=== PATIENT | female | born 1995 | race Caucasian/White ===

== ENCOUNTER 2017-10-08 01:37 | Emergency (ER) | payer OTHER, SELFPAY ==
[2017-10-08 01:37] VITALS: BP 117/86; PULSE 86; RESP 112; TEMP 36.4; O2SAT 100; BMI 19.7
--- NOTE | 2017-10-08 01:46 | ED.RN ---
RN CALLED FOR EKG, NO OLD EKG'S IN MUSE
[2017-10-08] MEDS: 0.9% Normal Saline 1,000 ML 1000 ML IV (02:23)
[2017-10-08] MEDS: Ondansetron 4 MG/2 ML Vial IV ×2 (02:23→05:24)
[2017-10-08] MEDS: Ketorolac 30 MG/ML Syringe IV (02:24)
[2017-10-08] MEDS: Morphine 4 MG/ML Syringe IV (02:27)
--- NOTE | 2017-10-08 03:02 | EKG12_ITS ---
Test Reason : CP Blood Pressure : / mmHG Vent. Rate : 107 BPM Atrial Rate : 107 BPM P-R Int : 134 ms QRS Dur : 084 ms QT Int : 334 ms P-R-T Axes : 076 089 048 degrees QTc Int : 445 ms Sinus tachycardia Otherwise normal ECG Confirmed by CANDELARIO WEST, DALE ([id number]), news editor ELINOR DURAN ([id number]) on 10/12/2017 1:38:12 PM Referred By: DR CRAIN Confirmed By:DALE PALOMINO MD
[2017-10-08 03:09] LABS: Anion Gap 9 (5-15); BUN 19 mg/dL (7-18); BUN/Creat Ratio 19.3 RATIO (10-20); Calcium,Total 8.8 mg/dL (8.5-10.1); Chloride 106 mmol/L (98-107); Creatinine, Serum 0.99 mg/dL (0.55-1.02); EST Glomerular Filtration Rate 74 mL/min (>60); Est Glom Filt Rate - Afr Amer 90 mL/min (>60); Estimated Creatinine Clearance 68.35 ml/min; Glucose 122 mg/dL (74-106); Potassium 3.8 mmol/L (3.5-5.1); Sodium Level 140 mmol/L (136-145)
[2017-10-08 03:22] LABS: Pregnancy, Serum, hCG Quali. NEGATIVE Negative (0-9 Nonpreg)
[2017-10-08] MEDS: 0.9% Normal Saline 1,000 ML 999 ML IV ×2 (03:27→04:12)
--- NOTE | 2017-10-08 03:46 | ED.VISSUMM ---
- ER Visit Summary Date of Service: 10/08/17 Chief Complaint: Vomiting and diarrhea History of Present Illness: The patient is a [address] Rocha. She reports that she has vomiting and diarrhea that began yesterday approximately 10 PM. She is vomited 3-4 times. No blood or emesis. She has had multiple episodes of diarrhea. No blood in her stools or black tarry stools. 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 Patient complains of cramping diffuse abdominal pain is 7-10 at worst and 3 out of 10 currently. Is worsened by vomiting and relieved by nothing. Physical Examination: Vitals: Stable. Afebrile. General: Well-nourished and well-developed. Head: Normocephalic atraumatic. Neck: Supple, no lymphadenopathy. No JVD. Nontender. Cardiovascular: Regular rate and rhythm. No murmurs. Respiratory: No respiratory distress. Clear to auscultation bilaterally. Abdominal: Soft, mild diffuse tenderness to palpation, nondistended, normal bowel sounds. No guarding, rebound, or peritoneal signs. Back: Nontender. Extremities: Nontender, no edema. Skin: Normal color, no rash. Neurologic: Alert and oriented ?3. Cranial nerves II through XII are intact. Normal strength and sensation. Psych: Normal affect. Test Results: test is negative. Chem-7 is remarkable for a glucose of 122 and BUN of 19. Emergency Department Course and Treatment: Patient has a history of seizures. She was unable to keep her evening dose of Keppra down. She was given 750 mg of Keppra IV. She is also given morphine, Zofran, and Toradol IV. She has had no further vomiting while here. She did have an episode of diarrhea. She received 3 L of normal saline and feels much improved. Treatment Plan: Patient be discharged with Zofran. Instructed to follow-up Dr. Rocha in 1-2 days if not improving. Return to the emergency department for any worsening symptoms. Disposition: To home in improved and stable condition. Impression: 1. Vomiting/diarrhea. This note was generated with [employer] software. It may contain incorrect words, spelling, and punctuation that were not noted in review of the chart prior to signing ED Disposition - Plan for ED Patient: Chief Complaint: Nausea/Vomiting Instructions: ED Food Poison Or Gastroenteritis Prescriptions: Ondansetron [Zofran Odt] 4 mg PO Q8H PRN PRN #10 tablet PRN Reason: Nausea Dicyclomine HCl [Bentyl] 20 mg PO TIDAC #20 capsule Referrals: Amilcar Summers MD [Primary Care Provider] - 1-2 Days if not improving
[2017-10-08] MEDS: Ondansetron ODT 4 MG Tablet PO (05:31)
[2017-10-08 05:42] VITALS: BP 77/37; PULSE 101; RESP 16; O2SAT 98
--- NOTE | 2017-10-08 12:40 | ED.RN ---
called pt and informed of positive stool panel with a result of norovirus.
== END 2017-10-08 05:43 | disposition home or self-care (01) ==
PROVIDERS: Emergency Provider Emergency Medicine; Family Provider Family Medicine; PCP Family Medicine
DX: R11.10 Vomiting, unspecified (principal); R19.7 Diarrhea, unspecified; G40.909 Epilepsy, unspecified, not intractable, without status epilepticus; G47.419 Narcolepsy without cataplexy; Z79.899 Other long term (current) drug therapy
CPT/HCPCS: 80048; 84703; 87506; 93005; 96361; 96365; 96366; 96375; 96376; 99284; J7030; A4216; J2405

== ENCOUNTER → 2018-01-07 13:00 | Outpatient (CLI) | payer OTHER, SELFPAY ==
--- NOTE | 2018-01-07 13:00 | SP.MBSS_ITS ---
PRIMARY / SECONDARY DIAGNOSIS: dysphagia (R13.10) REFERRING PHYSICIAN: Dr. Jason Toussaint MD CURRENT DIET: regular textures, thin liquids DENTITION: WFL MENTAL STATUS: WNL RESPIRATORY STATUS: O2 via room air PREVIOUS MODIFIED BARIUM SWALLOW STUDY: none REASON FOR REFERRAL: Patient is a 22 year old female referred for a modified barium swallow (MBS) study to objectively assess the Patients oropharyngeal swallow function under fluoroscopy secondary to concerning episodes of PO intolerance leading to copious, prolonged bouts of emesis particular concerning in that said episodes preclude the Patient from taking vital anti-seizure medications. Patient reports episodes accompanied by prolonged emesis have occurred 3 separate times over the last few months, with the Patient immediately feeling as though the bolus has stopped directly below the laryngeal notch, reports strong globus with odynophagia and immediate projectile emesis of both the bolus and prior ingested gastric contents that has lasted upwards of hours. Patient reports additional and more frequently occurring globus sensation and intermittent odynophagia, reports little relief from liquid chasers during episodes, is cognitively intact and healthy (epilepsy currently controlled by medication) with no concerns for tachyphagia or bolting (rapid ingestion without sufficient mastication). Patient reports that her father additionally has experienced similar episodes as described above, though has not underwent diagnostic workup. ADDITIONAL OBJECTIVE ASSESSMENT RESULTS: 07/05/2014 MRI revealed an unremarkable unenhanced and enhanced MRI of the brain. 07/05/2014 EEG revealed abnormal EEG secondary to epileptiform abnormalities ( sharp waves) that were noted to be occurring in the frontal regions, right greater than left; findings concerning for an underlying seizure disorder; indicate the patient is prone for seizure activity. MEDICAL HISTORY: Epilepsy, status post tonsillectomy, unspecified sleep disorders with daytime sleepiness, occasional hypnagogic hallucinations, sleep paralysis, and vivid dreams. STUDY FINDINGS: Patient participated in a Modified Barium Swallow (MBS) study on 01/07/2018. Dr. Ayers was the radiologist present for this evaluation. This study was recorded in the lateral view and images were sent to PACs for storage. The following consistencies were presented to this patient for analysis of oropharyngeal swallow function: thin liquids, pudding, and a regular textured, Rocio Doone cookie. Results of the MBS are as follows: PENETRATION / ASPIRATION SCALE (HANCOCK): 1 = does not enter airway 2 = enters airway/above vocal folds/ejected 3 = enters airway/above vocal folds/not ejected 4 = enters airway/contacts vocal folds/ejected 5 = enters airway/contacts vocal folds/not ejected 6 = enters airway/below vocal folds/ejected 7 = enters airway/below vocal folds/not ejected despite effort 8 = enters airway/below vocal folds/no effort PENETRATION / ASPIRATION SCALE (SCORE): Thin liquid - 5 mL tsp.: 1 Thin liquids via cup (single sip): 1 Thin liquids via cup (single sip): 1 Thin liquids via cup (single sip): 1 Thin liquids via cup (sequential swallows): 2 Thin liquids via straw (sequential swallows): 1 Pudding via spoon: 1 Regular textured cookie: 1 Thin liquids via straw (12mm tablet): 1 Thin liquids via straw (sequential swallows): 1 Pudding via spoon: NA* Thin liquids via straw (sequential swallows): NA* Thin liquids via straw (sequential swallows): NA* Pudding via spoon: NA* Regular textured cookie: NA* * could not view, with focus on esophageal phase of deglutition. IMPRESSION: DIAGNOSIS: functional oropharyngeal swallow function with abnormal esophageal findings. ORAL PHASE CHARACTERIZED BY: LABIAL SEAL: no labial escape TONGUE CONTROL DURING BOLUS MANIPULATION: cohesive bolus between tongue to palatal seal BOLUS PREPARATION / MASTICATION: timely and efficient chewing and mashing BOLUS TRANSPORT / LINGUAL MOTION: brisk tongue motion ORAL RESIDUE: intermittent trace residue lining oral structures PHARYNGEAL PHASE CHARACTERIZED BY: INITIATION OF PHARYNGEAL SWALLOW: bolus head at posterior angle of ramus at first hyoid excursion SOFT PALATE ELEVATION: no bolus between soft palate and pharyngeal wall LARYNGEAL ELEVATION: complete superior movement of thyroid cartilage with complete approximation of arytenoids cartilage to epiglottic petiole ANTERIOR HYOID EXCURSION: intermittent partial anterior movement EPIGLOTTIC MOVEMENT: complete epiglottic inversion LARYNGEAL VESTIBULE CLOSURE AT HEIGHT OF SWALLOW: complete laryngeal vestibule closure with no air/contrast in laryngeal vestibule PHARYNGEAL STRIPPING WAVE: pharyngeal stripping wave present / complete PHARYNGOESOPHAGEAL SEGMENT OPENING: partial distension and partial duration; partial obstruction of flow TONGUE BASE RETRACTION: no contrast between tongue base and posterior pharyngeal wall PHARYNGEAL RESIDUE: trace residue within or on pharyngeal structures ( valleculae) ESOPHAGEAL PHASE CHARACTERIZED BY: ESOPHAGEAL BOLUS CLEARANCE IN THE UPRIGHT POSITION: abnormal esophageal findings with noted esophageal retention of the 12mm barium tablet within the upper thoracic esophagus with mild retention within the same location during proceeding bolus of purees; required multiple chasers to clear with reported odynophagia no retrograde flow appreciated; would benefit from further workup. DIET TEXTURE RECOMMENDATIONS: Will recommend a regular textured, thin liquid diet. COMPENSATORY STRATEGIES RECOMMENDED: Supervision, reduced rate of intake, seated upright at 90 degrees during PO intake, remain upright for 30-60 minutes post meal (GERD precaution), medications with purees (would consider crushing pills if no relief AFTER discussion with physician). INTERPRETATION OF RESULTS: Patient presents with oropharyngeal swallow function grossly within functional limits, with abnormal esophageal phase findings requiring further workup. Mild reduction in anterior hyoid excursion likely attributing to mild reduction in pharyngoesophageal segment opening, with no clinical significance noted, no impact on laryngeal vestibule protection or pharyngeal motility. Esophageal phase marked by esophageal retention of the 12mm barium tablet within the upper thoracic esophagus with mild retention within the same location during proceeding bolus of pureed textures, with the Patient requiring multiple chasers to clear the tablet, with the Patient reporting odynophagia and similar globus sensation in comparison to prior reported episodes likely explaining prior episodes of intolerance, no retrograde flow appreciated. No aspiration appreciated throughout trials, would not consider this Patient to be at high risk of aspiration during ingestion, though depending on esophageal findings, may be at higher risk of aspirating materials from the esophagus in addition to gastric contents (reports intermittent albeit copious bouts of emesis). RECOMMENDATIONS: Strongly recommend additional assessment of the Patients esophageal functioning via barium esophagram vs. upper GI series due to the abnormal findings described above in addition to what sounds like a familial history of similar esophageal dysphagia, as it is outside the scope of the modified barium swallow study to definitively assess esophageal functioning. Would additionally consider further workup via director educational radio. ADDITIONAL COMMENTS/RECOMMENDATIONS: Results and recommendations were discussed with the Patient immediately following MBS completion, with the Patient verbalizing understanding and agreement with all recommendations and education provided. IMAGE COUNT: [id number] G-CODES: SWALLOWING G8996 Current Status: SWALLOWING G8997 Goal Status: SWALLOWING G8998 Discharge Status: KWESI Mock M.A., CCC-CORPORATE DEVELOPMENT MANAGER [facility] Speech-Language Pathology Department [email or web address]
--- NOTE | 2018-01-07 13:02 | RAD_ITS ---
STUDY: SWALLOWING STUDY REASON FOR EXAM: Female, 22 years old. Dysphagia. TECHNIQUE: The examination was performed with Speech Therapist and Radiologist in attendance. Under fluoroscopic observation, the patient ingested thin barium, thick barium, barium pudding, and barium coated cracker. FLUOROSCOPY TIME: 1:24 minutes/seconds Dose: 20.75 mGy RADIOLOGIST INVOLVEMENT: Present during entire exam. COMPARISON: None available. FINDINGS: The following was observed during swallowing of the various mixtures of barium: Thin Barium: There was no finding of aspiration or laryngeal penetration. Thick Barium: There was no findings of aspiration or laryngeal penetration. Barium Pudding: There was no findings of aspiration or laryngeal penetration. Barium Coated Cracker: There was no findings of aspiration or laryngeal penetration. However, patient swallowed a 18 mm barium tablet which progressed to the upper thoracic proximal esophagus shows stasis for approximately 1 minute consistent with esophageal dysmotility. Patient swallowed pudding which then allowed appearing pill to progress to the stomach. RAD/Swallowing Function w/Video IMPRESSION: No aspiration or significant laryngeal penetration identified with barium swallow study with Speech Therapy. No finding of increased risk for aspiration. However, esophageal dysmotility is noted of the upper thoracic proximal esophagus as described with 18 mm barium tablet. If clinically indicated, recommend upper GI series for further evaluation given patient's symptomatology. The swallow study findings were discussed with the patient by the speech pathologist at the conclusion of the examination. Please see speech pathology report for more information and recommendations. The procedure was performed by speech pathologist Blayne under the direct supervision of Dr. Ayers. Electronically Signed: Malcom Ayers, at 17:24 EDT Tel , Service support ,
== END ==
PROVIDERS: Family Provider Family Medicine; PCP Family Medicine
DX: R13.10 Dysphagia, unspecified (principal)
CPT/HCPCS: 74230; 92610; 92611

== ENCOUNTER → 2018-02-17 15:31 | Outpatient (CLI) | payer OTHER, SELFPAY ==
--- NOTE | 2018-02-17 12:30 | EGD_PTH ---
PATIENT: JALEEL ORELLANA LOC: [facility] U#:[id number] AGE/SX: 29/F ROOM: RE02/17/[address]: Dr. Kvng Sands MD : 1995 BED: DIS: SPEC #: [id number] RECD: 02/17/18 15:29 STATUS: YUMIKO STORMY #: [id number] TRISTIN: 02/17/18 12:[address]: Kvng Sands DEPT: SURGICAL PATHOLOGY RECD BY: Yanick Wood ENTERED: 02/18/18 11:01 SP TYPE: EGD BIOPSY OTHR DR: No Primary Care Phys Tissues: Esophageal mucous membrane Procedures: Surgery Specimen Level IV HEADER OPERATION: EGD with biopsies PRE-OP DIAGNOSIS: Dysphagia TISSUE SUBMITTED: Esophageal biopsies, rule out EE MICROSCOPIC DIAGNOSIS Esophageal biopsy: Fragments of squamous epithelium with changes consistent with eosinophilic esophagitis. See comment. JULIA:javon 02/21/18 COMMENT Increased number of eosinophils (more than 20 per high power field) consistent with eosinophilic esophagitis are noted. Correlation with clinical, endoscopic findings and appropriate follow up are necessary. MICROSCOPIC DESCRIPTION Slides are reviewed. GROSS DESCRIPTION Received in fixative is one container labeled with the patient's name and designated esophageal biopsy. The specimen consists of multiple irregular fragments of light hendrix soft tissue that in aggregate measure 1.2 x 0.2 x 0.1 cm. The specimen is totally submitted in one cassette. / SJ:rg 02/18/18 TC:3 CPT: 63936
== END ==
PROVIDERS: Visit Provider Internal Medicine Gastroenterology
DX: R13.10 Dysphagia, unspecified (principal)
CPT/HCPCS: 88305

== ENCOUNTER 2018-03-28 09:05 | Outpatient (RCR) | payer OTHER, SELFPAY | END 2018-03-30 23:59 | LOC: NS 09:05 | PROVIDERS: Visit Provider Family Medicine | DX: R13.10 Dysphagia, unspecified (principal); J39.2 Other diseases of pharynx; T78.40XA Allergy, unspecified, initial encounter; Z71.3 Dietary counseling and surveillance | CPT/HCPCS: 97802 ==

== ENCOUNTER → 2019-07-11 16:50 | Outpatient (CLI) | payer OTHER, SELFPAY ==
[2019-07-11 18:13] LABS: Absolute Neutrophil Count 3.1 X10^3/uL (2.0-7.7); Basophil# 0.04 X10^3/uL; Basophil% 0.8 % (0-1); Eosinophil# 0.12 X10^3/uL; Eosinophils% 2.4 % (0-5); Hematocrit 40.3 % (37-47); Hemoglobin 14.2 g/dL (12.0-15.0); Lymphocyte % 27.8 % (19-41); Mean Corp Hgb Conc 35.2 g/dL (32-36); Mean Corpuscular Hgb 33.7 pg (27.0-32.0); Mean Corpuscular Volume 95.7 fL (81-99); Mean Platelet Vol. 10.7 fl (6.2-12.0); Monocyte# 0.37 X10^3/uL; Monocyte% 7.4 % (0-10); NRBC Flagged by Analyzer 0 % (0-5); Neutrophil # 3.07 X10^3/uL (2.7-7.7); Platelet Count 174 K/mm3 (150-450); RBC Distribution Width SD 38.6 fl (35.1-43.9); Red Blood Count 4.21 M/mm3 (4.2-5.4)
[2019-07-11 19:13] LABS: Albumin, Serum 4.4 g/dL (3.2-5.0); BUN 14 mg/dL (7-18); BUN/Creat Ratio 13.9 RATIO (10-20); Creatinine, Serum 1.01 mg/dL (0.55-1.02); EST Glomerular Filtration Rate 71 mL/min (>60); Est Glom Filt Rate - Afr Amer 86 mL/min (>60); Globulin 3.2 g/dL (2.2-4.2); Glucose 119 mg/dL (74-106); Protein, Total 7.6 g/dL (6.4-8.2)
[2019-07-11 19:14] LABS: ALB/GLOB Ratio 1.4 RATIO (0.9-2.4); AST(SGOT) 14 U/L (15-37); Alanine Aminotransfer ALT/SGPT 26 U/L (13-56); Alkaline Phosphatase 80 U/L (45-117); Anion Gap 4 (5-15); Calcium,Total 9.3 mg/dL (8.5-10.1); Chloride 104 mmol/L (98-107); Potassium 3.5 mmol/L (3.5-5.1); Sodium Level 139 mmol/L (136-145)
[2019-07-14 16:48] LABS: Lamotrigine (Lamictal) Level 7.2 ug/mL (2.0-20.0)
== END ==
DX: G40.309 Generalized idiopathic epilepsy and epileptic syndromes, not intractable, without status epilepticus (principal)
CPT/HCPCS: 36415; 80053; 82542; 85025

== ENCOUNTER → 2019-11-09 08:43 | Outpatient (CLI) | payer OTHER, SELFPAY ==
[2019-11-09 10:16] LABS: Potassium 3.9 mmol/L (3.5-5.1)
== END ==
PROVIDERS: PCP Family Medicine; Referring Provider Dermatology; Visit Provider Dermatology
DX: L70.0 Acne vulgaris (principal); L23.3 Allergic contact dermatitis due to drugs in contact with skin; Z79.899 Other long term (current) drug therapy
CPT/HCPCS: 36415; 84132

== ENCOUNTER → 2020-10-15 15:23 | Outpatient (CLI) | payer OTHER, SELFPAY ==
[2020-10-19 09:16] LABS: KEPPRA (LEVETIRACETAM) 13.8 ug/mL (10.0-40.0)
== END ==
PROVIDERS: PCP Family Medicine
DX: R56.9 Unspecified convulsions (principal)
CPT/HCPCS: 36415; 80177

== ENCOUNTER → 2020-11-11 08:38 | Outpatient (CLI) | payer OTHER, SELFPAY ==
[2020-11-11 10:24] LABS: Potassium 3.8 mmol/L (3.5-5.1)
== END ==
PROVIDERS: PCP Family Medicine; Referring Provider Dermatology; Visit Provider Dermatology
DX: L70.0 Acne vulgaris (principal); Z79.899 Other long term (current) drug therapy
CPT/HCPCS: 36415; 84132

== ENCOUNTER → 2021-10-06 | Outpatient (CLI) | payer OTHER, SELFPAY ==
[2021-10-11 01:07] LABS: KEPPRA (LEVETIRACETAM) 17.5 ug/mL (10.0-40.0)
[2021-10-11 08:52] LABS: Lamotrigine (Lamictal) Level 8.2 ug/mL (2.0-20.0)
== END | disposition home or self-care (01) ==
LOC: LAB 14:57
PROVIDERS: PCP Family Medicine; Referring Provider Psychiatry & Neurology Neurology; Visit Provider Psychiatry & Neurology Neurology
DX: G40.309 Generalized idiopathic epilepsy and epileptic syndromes, not intractable, without status epilepticus (principal)
CPT/HCPCS: 36415; 80177; 82542

== ENCOUNTER → 2022-05-05 | Outpatient (CLI) | payer OTHER, SELFPAY ==
[2022-05-05 16:37] LABS: Vitamin B12 355 pg/mL (211-911); Vitamin D,25 Hydroxy 15.8 ng/mL
[2022-05-05 16:43] LABS: T4 Free Direct 0.91 ng/dL (0.76-1.46); Thyroid Stim Hormone (TSH) 1.04 uIU/mL (0.358-3.74)
== END | disposition home or self-care (01) ==
PROVIDERS: PCP Family Medicine; Referring Provider Psychiatry & Neurology Sleep Medicine; Visit Provider Psychiatry & Neurology Sleep Medicine
DX: R41.3 Other amnesia (principal)
CPT/HCPCS: 36415; 82306; 82607; 84439; 84443

== ENCOUNTER → 2022-10-21 | Outpatient (CLI) | payer OTHER, SELFPAY ==
--- NOTE | 2022-10-21 08:51 | RAD_ITS ---
INDICATION: chest pain EXAMINATION/TECHNIQUE: X-RAY - XR Chest 2 Views COMPARISON: FINDINGS: LINES/DEVICES: None. LUNGS: No consolidation, edema or effusion. No pneumothorax. MEDIASTINUM AND CARDIOVASCULAR STRUCTURES: Cardiac silhouette not enlarged. Central airways and mediastinal contour are unremarkable. BONES AND SOFT TISSUES: Unremarkable. RAD/Chest PA and Lateral IMPRESSION: No radiographic evidence of acute cardiopulmonary disease. Electronically Signed: Blake Fredercik DO at 23:35 EDT ,
== END | disposition home or self-care (01) ==
PROVIDERS: PCP Family Medicine; Referring Provider Nurse Practitioner Family; Visit Provider Nurse Practitioner Family
DX: R07.9 Chest pain, unspecified (principal)
CPT/HCPCS: 71046

== ENCOUNTER → 2022-11-04 | Outpatient (CLI) | payer OTHER, SELFPAY ==
--- NOTE | 2022-11-04 08:15 | ECHOD_ITS ---
Reason For Study: CHEST PAIN Procedure This was a 2D Doppler, Color Flow transthoracic echocardiogram. Exam performed in department. Left Ventricle Normal LV size. Left ventricular systolic function is normal. The estimated ejection fraction is 60 %. Normal diastology for age. No regional wall motion abnormalities noted. Right Ventricle Normal RV size. Normal systolic function. Atria Normal left atrium. Normal right atrium. Mitral Valve Normal mitral valve. Tricuspid Valve Normal tricuspid valve. Aortic Valve Normal aortic valve. Trisinus/trileaflet aortic valve. Pulmonic Valve Normal pulmonic valve. Great Vessels Normal aortic root. The pulmonary artery is normal size. Inferior vena cava collapse with respiration. Pericardium/Pleural No pericardial effusion. MMode/2D Measurements & Calculations LVIDd: 3.7 cm IVSd: 0.71 cm Ao root diam: 2.7 cm LVIDs: 2.7 cm LVPWd: 0.72 cm RVDd: 2.1 cm FS: 26.8 % LAV(MOD-bp): 42.3 ml LVAd ap4: 24.9 cm2 SV(MOD-sp4): 44.3 ml LAV(MOD-bp) Indexed: 28.7 ml/m2 LVLd ap4: 8.2 cm LAV(MOD-sp2): 36.1 ml EDV(MOD-sp4): 63.7 ml LAV(MOD-sp4): 43.0 ml EDV(sp4-el): 64.4 ml LVAs ap4: 11.7 cm2 LVLs ap4: 6.5 cm ESV(MOD-sp4): 19.5 ml ESV(sp4-el): 17.8 ml EF(MOD-sp4): 69.5 % EF(sp4-el): 72.3 % SV(sp4-el): 46.6 ml LA A4 area: 16.8 cm2 LA dimension(2D): 2.8 cm RA A4 area: 11.3 cm2 Time Measurements MV dec time: 0.20 sec Doppler Measurements & Calculations MV E max ronni: 79.9 cm/sec Lat Peak E' Ronni: 19.5 cm/sec Med Peak E' Ronni: 14.3 cm/sec MV A max ronni: 64.2 cm/sec E/E' lat: 4.1 E/E' med: 5.6 MV E/A: 1.2 MV V2 max: 94.3 cm/sec Ao V2 max: 123.3 cm/sec MV max P.6 mmHg MV dec slope: 405.4 cm/sec2 Ao max P.1 mmHg MV V2 mean: 72.7 cm/sec Ao V2 mean: 88.7 cm/sec MV mean P.2 mmHg Ao mean P.5 mmHg MV V2 VTI: 19.7 cm Ao V2 VTI: 25.5 cm AV (velocity ratio): 0.91 LV V1 max: 118.8 cm/sec PA V2 max: 87.6 cm/sec LV V1 max P.7 mmHg PA V2 mean: 65.0 cm/sec LV V1 mean P.2 mmHg LV V1 mean: 86.1 cm/sec LV V1 VTI: 23.3 cm ECHO/Echo Complete Interpretation Summary Normal LV size. Left ventricular systolic function is normal. The estimated ejection fraction is 60 %. Structurally normal valves. Ordering Physician: Marianna Cutler Referring Physician: Marianna Cutler Performed By: Yris Holman RCS
[2022-11-04 09:58] LABS: Hematocrit 42.7 % (37-47); Hemoglobin 14.5 g/dL (12.0-15.0); Mean Corpuscular Hgb 33.3 pg (27.0-32.0); Mean Corpuscular Volume 97.9 fL (81-99); Mean Platelet Vol. 10.3 fl (6.2-12.0); Platelet Count 176 K/mm3 (150-450); RBC Distribution Width CV 11.5 % (11.6-14.6); RBC Distribution Width SD 41.5 fl (35.1-43.9); Red Blood Count 4.36 M/mm3 (4.2-5.4); White Blood Count 3.8 K/mm3 (4.4-11.0)
[2022-11-04 10:31] LABS: Anion Gap 4 (5-15); BUN 17 mg/dL (7-18); BUN/Creat Ratio 17.4 RATIO (10-20); Calcium,Total 9.4 mg/dL (8.5-10.1); Chloride 107 mmol/L (98-107); Creatinine, Serum 0.98 mg/dL (0.55-1.02); EST Glomerular Filtration Rate 72 mL/min (>60); Est Glom Filt Rate - Afr Amer 87 mL/min (>60); Glucose 102 mg/dL (74-106); Potassium 4.1 mmol/L (3.5-5.1); Sodium Level 139 mmol/L (136-145)
[2022-11-04 10:47] LABS: D-Dimer Quantitative (DVT/PE) < 0.27 FEU/ug/m (0.27-0.49)
== END | disposition home or self-care (01) ==
PROVIDERS: PCP Family Medicine; Referring Provider Nurse Practitioner Family; Visit Provider Nurse Practitioner Family
DX: R07.9 Chest pain, unspecified (principal)
CPT/HCPCS: 36415; 80048; 85027; 85379; 93306

== ENCOUNTER → 2022-11-14 | Outpatient (CLI) | payer OTHER, SELFPAY ==
[2022-11-18 18:07] LABS: KEPPRA (LEVETIRACETAM) 9.3 ug/mL (10.0-40.0); Lamotrigine (Lamictal) Level 6.7 ug/mL (2.0-20.0)
== END | disposition home or self-care (01) ==
LOC: LAB 11:55
PROVIDERS: PCP Family Medicine; Referring Provider Psychiatry & Neurology Neurology; Visit Provider Psychiatry & Neurology Neurology
DX: G40.309 Generalized idiopathic epilepsy and epileptic syndromes, not intractable, without status epilepticus (principal)
CPT/HCPCS: 36415; 80177; 82542

== ENCOUNTER 2025-05-06 19:12 | Inpatient (IN) | payer OTHER, SELFPAY ==
[2025-05-06 19:14] VITALS: BMI 26.0
--- OUTSIDE RECORDS SUMMARY | 2025-05-06 19:16 | XMS RPT_ITS | CCD ---
Author Organization [facility] Inform ion [facility] Care Team Providers Care Project Administrative Assistant Name Role Phone Tiburcio Summers MD Primary Care Provider Dr. Amilcar Summers Primary Care Provider Dr. Bobby Reardon Attending Provider Omayra SURVEY RESEARCH PROFESSOR, SURVEY RESEARCH PROFESSOR-C Marianna Referring Provider Juan Hood Attending Unavailable Juan Hood Referring Unavailable Amilcar Summers Primary Care Unavailable YAMILETH EWING Attending Unavailable YAMILETH EWING Referring Unavailable Amilcar Summers Primary Care Unavailable Omayra SURVEY RESEARCH PROFESSOR, Marianna Attending Unavailable Omayra SURVEY RESEARCH PROFESSOR, Marianna Referring Unavailable Amilcar Summers Primary Care Unavailable Omayra SURVEY RESEARCH PROFESSOR, Marianna Referring Unavailable Bobby Reardon Attending Unavailable Amilcar Summers Primary Care Unavailable Omayra SURVEY RESEARCH PROFESSOR, Marianna Attending Unavailable Omayra SURVEY RESEARCH PROFESSOR, Marianna Referring Unavailable Amilcar Summers Primary Care Unavailable Tiburcio Summers MD Primary Care Provider Tiburcio Summers MD Primary Care Provider Tiburcio Summers MD Primary Care Provider TIBURCIO SUMMERS Primary Care UnavailBRINDA Wilkins Referring Unavailable BRINDA ROYAL Attending Unavailable Tiburcio Summers MD Primary Care Provider TIBURCIO SUMMERS Primary Care Unavailabl e VERO, TIKA Referring Unavailable TIBURCIO SUMMERS Primary Care Unavailabl e VERO, TIKA Referring Unavailable DILLON DILLARD Attending Unavailable TIBURCIO SUMMERS Primary Care Unavailabl e DILLON DILLARD Referring Unavailable LUBA JAMES Attending Unavail able [facility] Primary Care [facility]availabl e [facility] Primary Care Unavailabl e VERO, TIKA Referring Unavailable [facility] Primary Care Unavailabl e PLOTABNER, ROMELIA Referring Unavailable [facility] Primary Care Unavailabl e VREO, TIKA Attending Unavailable [facility] Primary Care Unavailabl e NATALIYA HOWE Attending Unavailable [facility] Primary Care Unavailabl e DILLON DILLARD Referring Unavailable [facility] Primary Care Unavailabl e WISSARIKA, BUZZ Referring Unavailable [facility] Primary Care Unavailabl e VERO, TIKA Referring Unavailable BUZZ CARRANZA Attending Unavailable [facility] Primary Care Unavailabl e KRYSTA SANCHES Referring Unavailable [facility] Primary Care Unavailabl e SELF Referring Unavailable ROMELIA SURESH Attending Unavailable [facility] Primary Care Unavailabl e BUZZ CARRANZA Attending Unavailable [facility] Primary Care Unavailabl e DILLON DILLARD Referring Unavailable [facility] Primary Care Unavailabl e MERY TURNER Referring Unavailable [facility] Primary Care Unavailabl e SELF Referring Unavailable ROEMLIA SURESH Attending Unavailable [facility] Primary Care Unavailabl e BUZZ CARRANZA Attending Unavailable [facility] Primary Care Unavailabl e LUBA JAMES Referring Unavail able [facility] Primary Care Unavailabl e DILLON DILLARD Referring Unavailable [facility] Primary Care Unavailabl e DILLON DILLARD Referring Unavailable [facility] Primary Care Unavailabl e SELF Referring Unavailable CATIE ALEJANDRO Attending Unavailable [facility] Primary Care Unavailabl e DILLON DILLARD Referring Unavailable BUZZ CARRANZA Attending Unavailable [facility] Primary Care Unavailabl e DILLON DILLARD Referring Unavailable BUZZ CARRANZA Attending Unavailable NATALIYA HOWE Referring Unavailable [facility] Primary Care Unavailabl e NATALIYA HOWE Referring Unavailable [facility] Primary Care Unavailabl e PLOTABNER, ROMELIA Referring Unavailable TIBURCIO SUMMERS Primary Care Unavailabl e SHELLEY DAVIS Referring Unavailable TIBURCIO SUMMERS Primary Care Unavailabl e TIKA PHAM Referring Unavailable TIBURCIO SUMMERS Primary Care Unavailabl e NATALIYA HOWE Referring Unavailable TIBURCIO SUMMERS Primary Care Unavailabl e Allergies Allergy Classification Reported Allergen(s) Allergy Type Date of Onset Reaction(s) Facility (20 sources) almond allergenic extract; Translations: [ALMOND] Drug Allergy 08-07-2019 Shortness of Breath [facility] Work Phone: (20 sources) barley extract; Translations: [BARLEY] Drug Allergy 04-18-2018 Shortness of Breath [facility] (20 sources) Singletary extract; Translations: [SINGLETARY] Drug Allergy 07-03-2019 Shortness of Breath [facility] Work Phone: (20 sources) Cabbage preparation; Translations: [CABBAGE] Drug Allergy 04-18-2018 Shortness of Breath [facility] (20 sources) chicken allergenic extract; Translations: [CHICKEN DERIVED] Drug Allergy 07-03-2019 Shortness of Breath [facility] Work Phone: (20 sources) egg extract; Translations: [EGG] Drug Allergy 04-18-2018 Shortness of Breath [facility] (20 sources) Lactase; Translations: [LACTASE] Drug Allergy 04-18-2018 Shortness of Breath [facility] (20 sources) Oats preparation; Translations: [OATS] Drug Allergy 04-18-2018 Shortness of Breath [facility] (20 sources) peanut; Translations: [PEANUTS] Food Allergy 04-18-2018 Shortness of Breath [facility] Work Phone: (20 sources) Pisum sativum (pea) extract; Translations: [PEAS] Drug Allergy 07-03-2019 Shortness of Breath [facility] Work Phone: (20 sources) Soy protein; Translations: [SOY] Drug Allergy 04-18-2018 Shortness of Breath [facility] (20 sources) Wheat gluten extract; Translations: [GLUTEN] Drug Allergy 07-03-2019 Shortness of Breath [facility] Work Phone: (20 sources) Beef Containing Products; Translations: [BEEF CONTAINING PRODUCTS] Drug Allergy 04-18-2018 Shortness of Breath [facility] (20 sources) Tomatoes; Translations: [TOMATOES] Food Allergy 04-18-2018 Shortness of Breath [facility] (20 sources) Wheat, Wheat Germ; Translations: [WHEAT, WHEAT GERM] Food Allergy 04-18-2018 Shortness of Breath [facility] Medications Current Medications Medication Drug Class(es) Dates Sig (Normalized) Sig (Original) aspirin 81 mg delayed release oral tablet (17 sources) Platelet Aggregation Inhibitor, Nonsteroidal Anti-inflammatory Drug Start: 10-02-2024 take 1 tablet by mouth once daily aspirin, enteric coated (ECOTRIN LOW STRENGTH) 81 mg EC tablet Indications: with uncertain dates, antepartum (HCC) , Screen for STD (sexually transmitted disease) , care, first in first trimester (HCC) Take 1 tablet by mouth once daily. 90 tablet 3 10/02/2024 Active dicyclomine hydrochloride 10 mg oral capsule (3 sources) Anticholinergic Start: 10-08-2017 take 20 mg by mouth three times daily before mealtime Dicyclomine Active 20 MG PO THREE TIMES DAILY BEFORE MEALS October 08, 2017 12:00am doxycycline hyclate 100 mg oral tablet (1 source) Tetracycline-class Drug Start: 07-10-2024 End: 07-17-2024 take 1 tablet by mouth twice daily doxycycline (VIBRA-TABS) 100 mg tablet Indications: Bacterial pneumonia Take 1 tablet by mouth two times a day for 7 days. 14 tablet 07/10/2024 07/17/2024 Active folic acid 1 mg oral tablet (20 sources) Start: 05-09-2021 End: 10-16-2024 take 2 tablets by mouth once daily folic acid 1 mg tablet Indications: Generalized epilepsy (HCC) Take 2 tablets by mouth once daily. 180 tablet 1 10/16/2024 Active Comment on above: Take 2 tablets by mo [facility] once daily. 24 hr lamoTRIgine 250 mg extended release oral tablet (20 sources) Mood Stabilizer, Anti-epileptic Agent Start: 12-07-2024 End: 03-07-2025 take 1 tablet by mouth twice daily lamoTRIgine ER (LAMICTAL XR) 250 mg 24 hr tablet Indications: Generalized epilepsy (HCC) Take 1 tablet by mouth twice daily. 180 tablet 1 02/14/2025 Active Start: 10-30-2024 End: 10-30-2025 take 1 tablet by mouth twice daily lamoTRIgine ER (LAMICTAL XR) 200 mg 24 hr tablet Indications: Generalized epilepsy (HCC) Take 1 tablet by mouth two times a day. 180 tablet 3 10/30/2024 12/07/2024 Discontinued Start: 03-26-2021 End: 04-14-2025 take 1 tablet by mouth twice daily lamoTRIgine ER (LAMICTAL XR) 100 mg 24 hr tablet Indications: Generalized epilepsy (HCC) Take 1 tablet by mouth two times a day. Take with 50 mg tablets for total of 150 mg twice daily 180 tablet 3 11/08/2023 10/16/2024 Discontinued Start: 03-26-2021 End: 11-07-2024 take 1 tablet by mouth twice daily lamoTRIgine ER (LAMICTAL XR) 50 mg 24 hr tablet Indications: Generalized epilepsy (HCC) Take 1 tablet by mouth two times a day. Take with 100 mg tablets for total of 150 mg twice daily 180 tablet 3 11/08/2023 10/16/2024 Discontinued Comment on above: Take 1 tablet by lee th twice daily. Take with 50 mg tablets for total of 150 mg twice daily Take 1 tablet by lee th twice daily. Take with 100 mg tablets for total of 150 mg twice daily levETIRAcetam 1000 mg oral tablet (20 sources) Start: End: take 2 tablets by mouth once daily in the morning, then take 2.5 tablets by mouth once daily at bedtime levETIRAcetam (KEPPRA) 1,000 mg tablet Indications: Generalized epilepsy (HCC) Take 2 tablets by mouth every morning AND 2.5 tablets daily at bedtime. 405 tablet 3 01/31/2025 01/31/2026 Active Start: 12-07-2024 End: 03-07-2025 take 2 tablets by mouth twice daily levETIRAcetam (KEPPRA) 1,000 mg tablet Indications: Generalized epilepsy (HCC) Take 2 tablets by mouth two times a day. 360 tablet 12/07/2024 01/31/2025 Discontinued Start: 10-27-2024 End: 10-27-2025 take 1.5 tablets by mouth twice daily levETIRAcetam (KEPPRA) 1,000 mg tablet Indications: Generalized epilepsy (HCC) Take 1.5 tablets by mouth two times a day. 180 tablet 1 10/27/2024 12/07/2024 Discontinued Start: 09-03-2021 End: 11-07-2024 take 1 tablet by mouth twice daily levETIRAcetam (KEPPRA) 1,000 mg tablet Indications: Generalized epilepsy (HCC) Take 1 tablet by mouth two times a day. 180 tablet 3 11/08/2023 10/16/2024 Discontinued Start: 05-14-2021 End: 09-01-2022 take 1 tablet by mouth once daily in the morning, then take 1.5 tablets by mouth once daily in the evening levETIRAcetam (KEPPRA) 1,000 mg tablet Indications: Generalized epilepsy (HCC) Take 1 tablet by mouth every morning AND 1.5 tablets every evening. 225 tablet 2 09/01/2021 09/03/2021 Discontinued Start: 10-08-2017 take 1 tablet by lee th once daily Levetiracetam (Keppra) 750 MG tablet Active 750 MG PO DAILY October 08, 2017 12:00am Comment on above: Take 1 tablet by lee th every morning AND 1.5 tablets every evening. Take 1 tablet by lee th twice daily. ondansetron 4 mg disintegrating oral tablet (3 sources) Serotonin-3 Receptor Antagonist Start: 8 take 4 mg by mouth every eight hours as needed Ondansetron Active 4 MG PO EVERY 8 HOURS NEEDED October 08, 2017 12:00am pantoprazole 40 mg delayed release oral tablet (17 sources) Proton Pump Inhibitor Start: 4 take 1 tablet by mouth once daily pantoprazole DR (PROTONIX) 40 mg tablet Take 40 mg by mouth once daily. 06/14/2023 Active vit/iron fum/folic ac ( 1 + 1 ORAL) (17 sources) vit/iro n fum/folic ac ( 1 + 1 ORAL) Take by mouth once daily. Active Completed/Discontinued Medications Medication Drug Class(es) Dates Sig (Normalized) Sig (Original) adapalene 0.003 mg/mg / benzoyl peroxide 0.025 mg/mg topical gel (20 sources) Retinoid Start: 12-12-2018 End: 01-11-2024 EPIDUO FORTE 0.3-2.5 % glwp Apply 0.3 mg to affected area as directed. 7 12/12/2018 01/11/2024 Discontinued Comment on above: Apply 0.3 mg to affe cted area as directed. 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 90 tablet 1 07/13/2023 01/11/2024 Discontinued Start: 04-21-2021 End: 10-31-2022 take 1 tablet by mouth once daily armodafinil (NUVIGIL) 250 mg tab Indications: Narcolepsy without cataplexy Take 1 tablet by mouth once daily for 180 days. 30 tablet 5 05/04/2022 10/31/2022 Active Comment on above: Take 1 tablet by lee once daily for 90 days. Take 1 tablet by lee th once daily for 30 days. Take 1 tablet by lee once daily for 7 days. Take 1 tablet by lee once daily. Take 1 tablet by lee once daily for 180 days. brompheniramine maleate 0.4 mg/ml / dextromethorphan hydrobromide 2 mg/ml / pseudoephedrine hydrochloride 6 mg/ml oral solution (3 sources) alpha-Adrenergic Agonist, Uncompetitive C-epqezh-T-aspartate Receptor Antagonist, Sigma-1 Agonist Start: 025 End: 025 take 5 mL by mouth four times daily as needed Brompheniramine-Pseud oeph-DM (BROMFED DM) 2-30-10 mg/5 mL syrup Indications: Acute cough Take 5 mL by mouth four times a day as needed. 120 mL 07/10/2024 09/11/2024 Discontinued (Discontinued by Patient) clonazePAM 0.5 mg disintegrating oral tablet (20 sources) Benzodiazepine Start: 023 End: 026 clonazePAM orally disintegrating (KLONOPIN WAFER) 0.5 mg disintegrating tablet Indications: Generalized epilepsy (HCC) Take one tablet by mouth as needed at the onset of a seizure. Do not exceed more than 2 doses in 24 hours. 10 tablet 06/20/2024 10/02/2024 Discontinued Start: 09-04-2020 End: 10-28-2022 clonazePAM orally disintegra ting (KLONOPIN WAFER) 0.5 mg disintegrating tablet Indications: Generalized epilepsy (HCC) Take one tablet by mouth as needed at the onset of a seizure. Do not exceed more than 2 doses in 24 hours. 10 tablet 1 09/03/2021 Active Comment on above: Take one tablet by m outh as needed at the onset of a seizure. Do not exceed more than 2 doses in 24 hours. levonorgestrel 0.925661 mg/hr intrauterine system (20 sources) Progestin, Progestin-containing Intrauterine Device Start: 05-29-20 End: 05-27-20 levonorgestrel (MIRENA) 20 mcg/24 hours (5 yrs) 52 mg IUD Indications: Encounter for IUD removal and reinsertion , Encounter for IUD insertion 1 Each by INTRAUTERINE route as directed. 1 Each 0 05/29/2019 01/11/2024 Discontinued (Course of therapy completed) Comment on above: 1 Each by INTRAUTERI NE route as directed. spironolactone 50 mg oral tablet (20 sources) Aldosterone Antagonist take 1 tablet by mouth twice daily spironolactone (ALDACTONE) 50 mg tablet Take 50 mg by mouth twice daily. 0 Active Comment on above: Take 50 mg by mouth twice daily. Problems Active Problems Problem Classification Problem Date Documented Date Episodic/Chronic Anxiety disorders (20 sources) Anxiety; Translations: [Anxiety disorder, unspecified] Onset: 09-03-2021 Chronic Coagulation and hemorrhagic disorders (2 sources) Thrombocytopenia, unspecified; Translations: [Benign gestational thrombocytopenia in third trimester (HCC)] Onset: 03-05-2025 Chronic Contraceptive and procreative management (3 sources) Intrauterine contraceptive device in situ; Translations: [Encounter for routine checking of intrauterine contraceptive device] Episodic Diabetes or abnormal glucose tolerance complicating ; childbirth; or the puerperium (2 sources) Gestational diabetes mellitus in , diet controlled; Translations: [Abnormal glucose complicating ] Onset: 02-22-2025 Episodic Epilepsy; convulsions (20 sources) Generalized epilepsy; Translations: [Generalized idiopathic epilepsy and epileptic syndromes, not intractable, without status epilepticus] Onset: 12-08-2019 Chronic Menstrual disorders (1 source) Menstrual spotting; Translations: [Excessive and frequent menstruation with regular cycle] 09-11-2024 Chronic Nonspecific chest pain (1 source) Chest pain, unspecified; Translations: [Chest pain, unspecified] Onset: 11-13-2022 Episodic Other complications of (1 source) Supervision of high risk , unspecified, third trimester; Translations: [Supervision of high risk in third trimester (HCC)] Onset: 03-19-2025 Episodic Other complications of (2 sources) Other diseases of the blood and blood-forming organs and certain disorders involving the immune mechanism complicating , third trimester; Translations: [Benign gestational thrombocytopenia in third trimester (HCC)] Onset: 03-05-2025 Episodic Other complications of (1 source) Supervision of high risk , unspecified, unspecified trimester; Translations: [Supervision of high risk , antepartum (HCC)] Onset: 02-21-2025 Episodic Other complications of (2 sources) Supervision of high risk , unspecified, second trimester; Translations: [Supervision of high risk in second trimester (HCC)] Onset: 02-21-2025 Episodic Other female genital disorders (1 source) Abnormal uterine bleeding; Translations: [Abnormal uterine and vaginal bleeding, unspecified] Chronic Other injuries and conditions due to external causes (1 source) Unspecified foreign body in respiratory tract, part unspecified causing other injury, initial encounter; Translations: [Aspiration of foreign body, initial encounter] Onset: 06-14-2023 Episodic Other lower respiratory disease (2 sources) Cough; Translations: [Acute cough] 07-10-2024 Episodic Other nervous system disorders (20 sources) Narcolepsy without cataplexy ; Translations: [Narcolepsy without cataplexy] Onset: 04-03-2022 Chronic Other nervous system disorders (19 sources) Narcolepsy; Translations: [Narcolepsy without cataplexy] Onset: 04-03-2022 04-03-2022 Chronic Other nervous system disorders (1 source) Narcolepsy without cataplexy; Translations: [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)] Onset: 05-20-2023 Chronic Other nervous system disorders (1 source) H/O: epilepsy; Translations: [Personal history of other diseases of the nervous system and sense organs] 12-28-2024 Episodic Other nervous system disorders (1 source) Personal history of other diseases of the nervous system and sense organs; Translations: [History of epilepsy] Onset: 02-21-2025 Episodic Other screening for suspected conditions (not mental disorders or infectious disease) (5 sources) Cancer cervix screening status; Translations: [Encounter for screening for malignant neoplasm of cervix] Onset: 02-21-2025 Episodic Other upper respiratory infections (1 source) Sore throat symptom; Translations: [Acute pharyngitis, unspecified] 07-10-2024 Episodic Pneumonia (except that caused by tuberculosis or sexually transmitted disease) (1 source) Bacterial pneumonia; Translations: [Unspecified bacterial pneumonia] 07-10-2024 Episodic Residual codes; unclassified (1 source) Memory impairment; Translations: [Other amnesia] Episodic Residual codes; unclassified (3 sources) Gestation period, 8 weeks; Translations: [8 weeks gestation of ] 10-02-2024 Episodic Residual codes; unclassified (1 source) Gestation period, 12 weeks; Translations: [12 weeks gestation of ] 11-01-2024 Episodic Residual codes; unclassified (1 source) Gestation period, 16 weeks; Translations: [16 weeks gestation of ] 11-27-2024 Episodic Residual codes; unclassified (2 sources) Gestation period, 20 weeks; Translations: [20 weeks gestation of ] 12-25-2024 Episodic Residual codes; unclassified (1 source) Gestation period, 24 weeks; Translations: [24 weeks gestation of ] 01-22-2025 Episodic Residual codes; unclassified (1 source) 34 weeks gestation of ; Translations: [34 weeks gestation of (HCC)] Onset: 04-02-2025 Episodic Residual codes; unclassified (1 source) 32 weeks gestation of ; Translations: [32 weeks gestation of (HCC)] Onset: 03-19-2025 Episodic Residual codes; unclassified (2 sources) 30 weeks gestation of ; Translations: [30 weeks gestation of (HCC)] Onset: 03-05-2025 Episodic Residual codes; unclassified (1 source) 24 weeks gestation of ; Translations: [24 weeks gestation of (HCC)] Onset: 02-21-2025 Episodic Residual codes; unclassified (1 source) 28 weeks gestation of ; Translations: [28 weeks gestation of (HCC)] Onset: 02-21-2025 Episodic Unclassified (17 sources) [facility] - COMMON Onset: 10-02-2024 10-02-2024 Unclassified (17 sources) Education - [place] Onset: 10-02-2024 10-02-2024 Unclassified (1 source) Acute cough; Translations: [Acute cough] Onset: 07-10-2024 Past or Other Problems Problem Classification Problem Date Documented Date Episodic/Chronic Immunizations and screening for infectious disease (6 sources) Patient encounter status; Translations: [Encounter for screening for infections with a predominantly sexual mode of transmission] Onset: 10-02-2024 10-02-2024 Episodic Other complications of (20 sources) High risk ; Translations: [Supervision of high risk , unspecified, unspecified trimester] Onset: 10-02-2024 10-02-2024 Episodic Other complications of (1 source) Supervision of high risk , unspecified, first trimester; Translations: [Supervision of high risk in first trimester (HCC)] Onset: 11-01-2024 Episodic Other and delivery including normal (10 sources) test positive; Translations: [Encounter for test, result positive] Onset: 09-11-2024 09-11-2024 Episodic Residual codes; unclassified (1 source) Other amnesia; Translations: [Other amnesia] Onset: 05-14-2022 Episodic Residual codes; unclassified (1 source) 20 weeks gestation of ; Translations: [20 weeks gestation of (HCC)] Onset: 12-25-2024 Episodic Residual codes; unclassified (1 source) 16 weeks gestation of ; Translations: [16 weeks gestation of (HCC)] Onset: 11-27-2024 Episodic Residual codes; unclassified (1 source) 8 weeks gestation of ; Translations: [8 weeks gestation of (HCC)] Onset: 11-01-2024 Episodic Results Test Name Value Interpretation Reference Range Facility CBC panel Auto (Bld)on 04-07 Erythrocyte distribution width (RBC) [Ratio] 13.4 % Normal 11.5-15.0 [facility] Comment on above: Order Comment: Speci men Type: BLOOD SPECIMEN Ordering Facility: [facility] Address: [address] [place] [address] Performed By: #### 5 195-3, 15994-8 #### [facility] CLIA [id number] [address] Hematocrit (Bld) [Volume fraction] 34.9 % Low 36.0-46.0 [facility] Comment on above: Order Comment: Speci men Type: BLOOD SPECIMEN Ordering Facility: [facility] Address: [address] [place] [address] Performed By: #### 5 195-3, 60985-1 #### [facility] CLIA [id number] [address] OF [facility] Hemoglobin (Bld) [Mass/Vol] 11.5 g/dL Normal 11.5-15.5 [facility] Comment on above: Order Comment: Speci men Type: BLOOD SPECIMEN Ordering Facility: [facility] Address: [address] [place] [address] Performed By: #### 5 195-3, [id number] #### [facility] CLIA [id number] [address] [place] [facility] MCH (RBC) [Entitic mass] 32.1 pg Normal 26.0-34.0 [facility] Comment on above: Order Comment: Speci men Type: BLOOD SPECIMEN Ordering Facility: [facility] Address: [address] [place] [address] Performed By: #### 5 195-3, 01527-2 #### [facility] CLIA [id number] [address] OF [place] MCHC (RBC) [Mass/Vol] 33.0 g/dL Normal 30.5-36.0 [facility] Comment on above: Order Comment: Speci men Type: BLOOD SPECIMEN Ordering Facility: [facility] Address: [address] [place] [address] Performed By: #### 5 195-3, 67775-8 #### [facility] CLIA [id number] [address] MCV (RBC) [Entitic vol] 97.5 fL Normal 80.0-100.0 [facility] Comment on above: Order Comment: Speci men Type: BLOOD SPECIMEN Ordering Facility: [facility] Address: [address] [place] [address] Performed By: #### 5 195-3, 37447-8 #### [facility] CLIA [id number] [address] Platelet mean volume (Bld) [Entitic vol] 11.4 fL Normal 9.0-12.7 [facility] Comment on above: Order Comment: Speci men Type: BLOOD SPECIMEN Ordering Facility: [facility] Address: [address] [place] [address] Performed By: #### 5 195-3, [id number] #### [facility] CLIA [id number] [address] [address] Platelets (Bld) [#/Vol] 139 10*3/uL Low 150-400 [facility] Comment on above: Order Comment: Speci men Type: BLOOD SPECIMEN Ordering Facility: [facility] Address: [address] [place] [address] Performed By: #### 5 195-3, 21412-1 #### [facility] CLIA [id number] [address] [place] RBC (Bld) [#/Vol] 3.58 10*6/uL Low 3.90-5.20 [facility] Comment on above: Order Comment: Speci men Type: BLOOD SPECIMEN Ordering Facility: [facility] Address: [address] [place] [address] Performed By: #### 5 195-3, 78360-0 #### [facility] CLIA [id number] [address] [place] WBC (Bld) [#/Vol] 6.14 10*3/uL Normal 3.70-11.00 [facility] Comment on above: Order Comment: Tran del cid Type: BLOOD SPECIMEN Ordering Facility: [facility] Address: [address] [place] [address] Performed By: #### 5 195-3, 04725-9 #### [facility] CLIA [id number] [address] lamoTRIgine SerPl-mCncon lamoTRIgine [Mass/Vol] 7.3 ug/mL Normal 1.0-13.0 [facility] Comment on above: Order Comment: Tran del cid Type: BLOOD SPECIMEN Ordering Facility: [facility] Address: [address] [place] [address] Result Comment: This test was developed, and its performance characteristics determined by the [facility] Department of Pathology and Laboratory Medicine. It has not been cleared or approved by the FDA. The [facility] Department of Pathology and Laboratory Medicine is regulated under CLIA as qualified to perform high-complexity testing. This test is used for clinical purposes. It should not be regarded as investigational or for research. Performed By: #### 5 195-3, 07572-7 #### [facility] CLIA [id number] [address] levETIRAcetam SerPl-mCncon 1 06-07-2024 levETIRAcetam [Mass/Vol] 20.6 ug/mL Normal 12.0-46.0 [facility] Comment on above: Order Comment: Tran del cid Type: BLOOD SPECIMEN Ordering Facility: [facility] Address: [address] [place] [address] Result Comment: This test is not suitable for patients receiving treatment with the drug brivaracetam (Briviact). The drug causes an interference that may lead to falsely elevated levetiracetam results. Reference ranges and high/low indicator flags are provided as general guidelines only. The treating physician must determine appropriate target levels/dosing based on the specific clinical situation. This test was developed, and its performance characteristics determined by the [facility] Department of Pathology and Laboratory Medicine. It has not been cleared or approved by the FDA. The [facility] Department of Pathology and Laboratory Medicine is regulated under CLIA as qualified to perform high-complexity testing. This test is used for clinical purposes. It should not be regarded as investigational or for research. Performed By: #### 3 0471-7 #### [facility] CLIA [id number] [address] [place] [address] OF [facility] CNPNon 03-22-2025 CNPN Telephone (OBGYWM) LYNSEY JOHNSON ([id number]) 1995 F Date Time Provider Department 03/22/25 LUBA JAMES OBGYWM During your visit today, we recorded the following information about you: Felipa Ball MA 03/22/2025 11:58 AM Signed [place] paperwork completed and signed. 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 A copy was placed in the scan folder. Felipa Ball MA Allergies As of Date: 03/22/2025 Noted Allergy Reaction ALMOND 08/07/2019 12 - Shortness of Breath Comments: Pt with EOE BARLEY 04/18/2018 12 - Shortness of Breath Comments: Patient diagnosed with Eosinophilic esophagitis SINGLETARY 07/03/2019 12 - Shortness of Breath BEEF CONTAINING PRODUCTS 04/18/2018 12 - Shortness of Breath Comments: Patient diagnosed with EOE CABBAGE 04/18/2018 12 - Shortness of Breath Comments: Patient diagnosed with EOE CHICKEN DERIVED 07/03/2019 12 - Shortness of Breath DAIRY AID (LACTASE) 04/18/2018 12 - Shortness of Breath Comments: Patient diagnosed with EOE EGG 04/18/2018 12 - Shortness of Breath Comments: Patient diagnosed with EOE GLUTEN 07/03/2019 12 - Shortness of Breath OATS 04/18/2018 12 - Shortness of Breath Comments: Patient diagnosed with EOE PEANUTS 04/18/2018 12 - Shortness of Breath Comments: Patient diagnosed with EOE All nuts except cashews PEAS 07/03/2019 12 - Shortness of Breath SOY 04/18/2018 12 - Shortness of Breath Comments: Patient diagnosed with EOE TOMATOES 04/18/2018 12 - Shortness of Breath Comments: Patient diagnosed with EOE WHEAT, WHEAT GERM 04/18/2018 12 - Shortness of Breath Comments: Patient diagnosed with EOE Date Reviewed: 03/19/2025 Reviewed by: Carmencita oLwe LPN - Fully Assessed Reason for Visit: [facility] Paperwork [0330] Prescriptions as of 03/27/2025 - Breast Pump Use as directed - blood sugar diagnostic test strip Use as directed to check glucose levels up to seven times daily. - Lancets Use as directed to check glucose levels up to seven times daily. - alcohol swabs (ALCOHOL PREP PADS) Use as directed to check glucose levels up to seven times daily. - ondansetron (ZOFRAN) 4 mg tablet Take 1 tablet by mouth every 8 hours as needed for nausea/vomiting. - blood sugar diagnostic test strip Use as directed to check glucose levels up to seven times daily. - Lancets Use as directed to check glucose levels up to seven times daily. - lamoTRIgine ER (LAMICTAL XR) 250 mg 24 hr tablet Take 1 tablet by mouth twice daily. - levETIRAcetam (KEPPRA) 1,000 mg tablet Take 2 tablets by mouth every morning AND 2.5 tablets daily at bedtime. - folic acid 1 mg tablet Take 2 tablets by mouth once daily. - aspirin, enteric coated (ECOTRIN LOW STRENGTH) 81 mg EC tablet Take 1 tablet by mouth once daily. - pantoprazole DR (PROTONIX) 40 mg tablet Take 40 mg by mouth once daily. - vit/iron fum/folic ac ( 1 + 1 ORAL) Take by mouth once daily. 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 Provider she is scheduled for reached out stating they don't see for GDM. Questionnaire for PSS pulls: Karla Huddleston, KAILASH 03/19/2025 10:56 AM Signed Pt saw Mary Ann Saleem RN for Gestational diabetes, education. Mary Ann, did you review Nutrition with this patient? Please advise as this particular nutrition order is what is in our gestational diabetes SmartSet, so I'm not sure how it got scheduled wrong? Are you able to provide guidance on this? KAILASH Jimenez Tara, RN 03/19/2025 3:10 PM Signed Call placed to Pt to inform her that Nutrition appt had been cancelled for 03/21/2025 as the appointment was scheduled inappropriately AND expressed apology to Pt. Pt understanding. Asked Pt if she felt she needed further Nutrition education after seeing home school liaison officer on 03/14/25 AND Pt does not feel she needs to at this time. Informed her that if she would change her mind, to please call the office. Also informed her that message would be forwarded to provider to inform her of this. Consult to Nutrition order cancelled. Pt voiced understanding. Pt also has appt in office today at 3pm for US and OB appt at 3:30pm. KAILASH Jimenez Tara, RN 03/22/2025 9:42 AM Signed OV with SW 03/19/25 and GDM well controlled with diet at this time. Pt advised to RTO in 2 weeks. Karla Huddleston RN Allergies As of Date: 03/19/2025 Noted Allergy Reaction ALMOND 08/07/2019 12 - Shortness of Breath Comments: Pt with EOE BARLEY 04/18/2018 12 - Shortness of Breath Comments: Patient diagnosed with Eosinophilic esophagitis SINGLETARY 07/03/2019 12 - Shortness of Breath BEEF CONTAINING PRODUCTS 04/18/2018 12 - Shortness of Breath Comments: Patient diagnosed with EOE CABBAGE 04/18/2018 12 - Shortness of Breath Comments: Patient diagnosed with EOE CHICKEN DERIVED 07/03/2019 12 - Shortness of Breath DAIRY AID (LACTASE) 04/18/2018 12 - Shortness of Breath Comments: Patient diagnosed with EOE EGG 04/18/2018 12 - Shortness of Breath Comments: Patient diagnosed with EOE GLUTEN 07/03/2019 12 - Shortness of Breath OATS 04/18/2018 12 - Shortness of Breath Comments: Patient diagnosed with EOE PEANUTS 04/18/2018 12 - Shortness of Breath Comments: Patient diagnosed with EOE All nuts except cashews PEAS 07/03/2019 12 - Shortness of Breath SOY 04/18/2018 12 - Shortness of Breath Comments: Patient diagnosed with EOE TOMATOES 04/18/2018 12 - Shortness of Breath Comments: Patient diagnosed with EOE WHEAT, WHEAT GERM 04/18/2018 12 - Shortness of Breath Comments: Patient diagnosed with EOE Date Reviewed: 03/19/2025 Reviewed by: Carmencita Lowe LPN - Fully Assessed Reason for Visit: Nutrition Counseling [76] Prescriptions as of 03/22/2025 - Breast Pump Use as directed - blood sugar diagnostic test strip Use as directed to check glucose levels up to seven times daily. - Lancets Use as directed to check glucose levels up to seven times daily. - alcohol swabs (ALCOHOL PREP PADS) Use as directed to check glucose levels up to seven times daily. - ondansetron (ZOFRAN) 4 mg tablet Take 1 tablet by mouth every 8 hours as needed for nausea/vomiting. - blood sugar diagnostic test strip Use as directed to check glucose levels up to seven times daily. - Lancets Use as directed to check glucose levels up to seven times daily. - lamoTRIgine ER (LAMICTAL XR) 250 mg 24 hr tablet Take 1 tablet by mouth twice daily. - levETIRAcetam (KEPPRA) 1,000 mg tablet Take 2 tablets by mouth every morning AND 2.5 tablets daily at bedtime. - folic acid 1 mg tablet Take 2 tablets by mouth once daily. - aspirin, enteric coated (ECOTRIN LOW STRENGTH) 81 mg EC tablet Take 1 tablet by mouth once daily. - pantoprazole DR (PROTONIX) 40 mg tablet Take 40 mg by mouth once daily. - vit/iron fum/folic ac ( 1 + 1 ORAL) Take by mouth once daily. 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] 04/03/2022 Supervision of high risk , antepartum *10/02/2024 Benign gestational thrombocytopenia, antepartum*02/22/2025 Abnormal glucose complicating (HCC) [*02/22/2025 Encounter Status:Closed by DEANNA MO on 03/20/25 [facility] 03-14-2025 [facility] Nurse Visit (ENDIMT) LYNSEY JOHNSON ([id number]) 1995 F Date Time Provider Department 03/14/25 3:00 PM MARY ANN SALEEM During your visit today, we recorded the following information about you: Mary Ann Saleem, KAILASH 03/14/2025 3:31 PM Signed DIABETES SELF-MANAGEMENT EDUCATION AND SUPPORT Location: [place] Type of visit: Virtual (with video) individual -- I have communicated my name and active licensure. The patient's identity and physical location were verified at the time of this visit. Either the patient or their legal event marketing representative has been informed of the risks and benefits of -- and alternatives to -- treatment through a remote evaluation and consents to proceed with the evaluation remotely. Types of DSMES: Initial/Comprehensive (add to or update ADA spreadsheet) PATIENT'S MAIN CONCERN TODAY: not sure Support person present for education today: none Cognitive ability: Alert and oriented Motivation to learn: Interested Learning barriers identified by educator: none Method of instruction: written, verbal, and demonstration INTERVENTIONS/TOPICS COVERED: -Diabetes Pathophysiology: gestational diabetes basics -Monitoring: BG targets, rationale for HGM, and using a home glucose monitor -Healthy Eating: impact of carbs on BG, Plate Method, foods with carbs, and reading food labels -Medications: use of insulin if sugars are elevated -Physical Activity: benefits of exercise and impact of exercise on BG -Acute Complications: hypoglycemia s/sx/tx, hyperglycemia s/sx/tx, and sick day rules -Chronic Complications: importance of BG control to reduce risks and risks to mom and baby with elevated blood sugars during -Healthy Coping and Support: impact of stress on BG DIABETES ASSESSMENT: Referring Physician: Luba Kee Previous Diabetes Education? No What are you hoping to gain from this visit? asked/not answered In your words, what is gestational diabetes? asked/not answered What concerns you about having gestational diabetes? asked/not answered Diabetes History: Type of Diabetes: Gestational ( diabetes in ) How far along is your ? Weeks: 31 Does anyone in your family have diabetes? 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 No self-identified issues Health History: Do you use tobacco? No Do you use alcohol? No In the past 12 months have you had any: Hospital Admissions: No ER Visits: No Primary Care Visits: no What are your general feelings about you overall health? Fair Medical Issues/Complications: To whom are you reporting your blood sugar levels? OB PAST MEDICAL HISTORY Diagnosis Date Epilepsy (HCC) Esophageal spasm Occurs d/t food allergies. Had EGD with [facility] 2017. Narcolepsy (HCC) Most recent A1C Lab Results Component Value Date HBA1C 4.6 10/30/2024 Physical Activity: Do you do a regular exercise? Yes; how many days per week 5+ How long each day? 30-60 min Type of Exercise: walking Sleep: Do you get at least 7 hrs of sleep most nights? yes Current Outpatient Medications Medication Sig Breast Pump Use as directed blood sugar diagnostic test strip Use as directed to check glucose levels up to seven times daily. Lancets Use as directed to check glucose levels up to seven times daily. alcohol swabs (ALCOHOL PREP PADS) Use as directed to check glucose levels up to seven times daily. ondansetron (ZOFRAN) 4 mg tablet Take 1 tablet by mouth every 8 hours as needed for nausea/vomiting. blood sugar diagnostic test strip Use as directed to check glucose levels up to seven times daily. Lancets Use as directed to check glucose levels up to seven times daily. lamoTRIgine ER (LAMICTAL XR) 250 mg 24 hr tablet Take 1 tablet by mouth twice daily. levETIRAcetam (KEPPRA) 1,000 mg tablet Take 2 tablets by mouth every morning AND 2.5 tablets daily at bedtime. folic acid 1 mg tablet Take 2 tablets by mouth once daily. aspirin, enteric coated (ECOTRIN LOW STRENGTH) 81 mg EC tablet Take 1 tablet by mouth once daily. pantoprazole DR (PROTONIX) 40 mg tablet Take 40 mg by mouth once daily. vit/iron fum/folic ac ( 1 + 1 ORAL) Take by mouth once daily. No current facility-administered medications for this visit. Injections Technique: Do you take insulin or a medication you inject for your diabetes? No Blood Sugar Monitoring: Do you have a blood sugar monitor? Timothy (more content not included)... Normal [facility] [place] 03-07-2025 SEKOU Telephone (OBGYWM) LYNSEY JOHNSON ([id number]) 1995 F Date Time Provider Department 03/07/25 MERY TURNER During your visit today, we recorded the following information about you: Mery Toribio RN 03/07/2025 3:26 PM Signed 30w5d Patient called to report RUQ pain that began 5 minutes ago. Sharp with a pain rating of 6. Denies CYR or vision changes. BP WNL last visit. Patient reports +FM and that her right side is where the baby is positioned. Patient asking if she should go to hospital for evaluation. Advised that a message would be sent to . KAILASH Shirley Jennifer, MD 03/07/2025 4:53 PM Signed Its not uncommon to have pain where baby parts are pressing. Sometimes different positions will encourage the baby to move. Along as there is no loss of fluid, bleeding or contractions, its ok to monitor at home. Mery Toribio RN 03/07/2025 4:58 PM Signed Called and notified patient. States that she is already feeling better now that the baby has changed positions. Mery Toribio RN Allergies As of Date: 03/07/2025 Noted Allergy Reaction ALMOND 08/07/2019 12 - Shortness of Breath Comments: Pt with EOE BARLEY 04/18/2018 12 - Shortness of Breath Comments: Patient diagnosed with Eosinophilic esophagitis SINGLETARY 07/03/2019 12 - Shortness of Breath BEEF CONTAINING PRODUCTS 04/18/2018 12 - Shortness of Breath Comments: Patient diagnosed with EOE CABBAGE 04/18/2018 12 - Shortness of Breath Comments: Patient diagnosed with EOE CHICKEN DERIVED 07/03/2019 12 - Shortness of Breath DAIRY AID (LACTASE) 04/18/2018 12 - Shortness of Breath Comments: Patient diagnosed with EOE EGG 04/18/2018 12 - Shortness of Breath Comments: Patient diagnosed with EOE GLUTEN 07/03/2019 12 - Shortness of Breath OATS 04/18/2018 12 - Shortness of Breath Comments: Patient diagnosed with EOE PEANUTS 04/18/2018 12 - Shortness of Breath Comments: Patient diagnosed with EOE All nuts except cashews PEAS 07/03/2019 12 - Shortness of Breath SOY 04/18/2018 12 - Shortness of Breath Comments: Patient diagnosed with EOE TOMATOES 04/18/2018 12 - Shortness of Breath Comments: Patient diagnosed with EOE WHEAT, WHEAT GERM 04/18/2018 12 - Shortness of Breath Comments: Patient diagnosed with EOE Date Reviewed: 03/05/2025 Reviewed by: Angelita Carbajal MA - Fully Assessed Reason for Visit: OB RUQ pain [Other] Prescriptions as of 03/07/2025 - Breast Pump Use as directed - blood sugar diagnostic test strip Use as directed to check glucose levels up to seven times daily. - Lancets Use as directed to check glucose levels up to seven times daily. - alcohol swabs (ALCOHOL PREP PADS) Use as directed to check glucose levels up to seven times daily. - ondansetron (ZOFRAN) 4 mg tablet Take 1 tablet by mouth every 8 hours as needed for nausea/vomiting. - blood sugar diagnostic test strip Use as directed to check glucose levels up to seven times daily. - Lancets Use as directed to check glucose levels up to seven times daily. - lamoTRIgine ER (LAMICTAL XR) 250 mg 24 hr tablet Take 1 tablet by mouth twice daily. - levETIRAcetam (KEPPRA) 1,000 mg tablet Take 2 tablets by mouth every morning AND 2.5 tablets daily at bedtime. - folic acid 1 mg tablet Take 2 tablets by mouth once daily. - aspirin, enteric coated (ECOTRIN LOW STRENGTH) 81 mg EC tablet Take 1 tablet by mouth once daily. - pantoprazole DR (PROTONIX) 40 mg tablet Take 40 mg by mouth once daily. - vit/iron fum/folic ac ( 1 + 1 ORAL) Take by mouth once daily. 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] 04/03/2022 Supervision of high risk , antepartum *10/02/2024 Benign gestational thrombocytopenia, antepartum*02/22/2025 Abnormal glucose complicating (HCC) [*02/22/2025 Encounter Status:Closed by MERY TORIBIO on 03/07/25 Normal [facility] GLUCOSE GESTATIONAL, 1 HOURo n 03-05-2025 Glucose 1 Hr post Unsp challenge [Mass/Vol] 205 mg/dL High 74-179 [facility] Comment on above: Order Comment: Tran del cid Type: BLOOD SPECIMEN Ordering Facility: [facility] Address: [address] [place] [address] Result Comment: [facility] [employer] of Obstetricians and Gynecologists (Lee/[place]isreenstan) guidelines state gestational diabetes mellitus is present when 2 or more of the plasma glucose concentrations meet or exceed the following levels: fastin mg/dl, 1 hr: 180 mg/dl, 2 hr: 155 mg/dl, and 3 hr: 140 mg/dl. Performed By: #### 5 8410-2 #### [facility] CLIA [id number] [address] [place] [address] [place] GLUCOSE GESTATIONAL, 2 HOURo n 03-05-2025 Glucose 2 Hr post Unsp challenge [Mass/Vol] 205 mg/dL High 74-154 [facility] Comment on above: Order Comment: Gregi maria eugenia Type: BLOOD SPECIMEN Ordering Facility: [facility] Address: [address] [place] [address] Result Comment: [facility] Congress of Obstetricians and Gynecologists ([place]) guidelines state gestational diabetes mellitus is present when 2 or more of the plasma glucose concentrations meet or exceed the following levels: fastin mg/dl, 1 hr: 180 mg/dl, 2 hr: 155 mg/dl, and 3 hr: 140 mg/dl. Performed By: #### 5 8410-2 #### [facility] CLIA [id number] [address] [place] [address] [place] GLUCOSE GESTATIONAL, 3 HOURo n 03-05-2025 Glucose 3 Hr post Unsp challenge [Mass/Vol] 146 mg/dL High 74-139 [facility] Comment on above: Order Comment: Tran del cid Type: BLOOD SPECIMEN Ordering Facility: [facility] Address: [address] [place] [address] Result Comment: [facility] Congress of Obstetricians and Gynecologists (Jesus/Jairo) guidelines state gestational diabetes mellitus is present when 2 or more of the plasma glucose concentrations meet or exceed the following levels: fastin mg/dl, 1 hr: 180 mg/dl, 2 hr: 155 mg/dl, and 3 hr: 140 mg/dl. Performed By: #### 5 8410-2 #### [facility] [id number] [address] [place] [address] [place] GLUCOSE GESTATIONAL, FASTING on 03-05-2025 Glucose post fast [Mass/Vol] 68 mg/dL Low 74-94 [facility] Comment on above: Order Comment: Gregi maria eugenia Type: BLOOD SPECIMEN Ordering Facility: [facility] Address: [address] [place] [address] Result Comment: [facility] Congress of Obstetricians and Gynecologists (Jesus/Jairo) guidelines state gestational diabetes mellitus is present when 2 or more of the plasma glucose concentrations meet or exceed the following levels: fastin mg/dl, 1 hr: 180 mg/dl, 2 hr: 155 mg/dl, and 3 hr: 140 mg/dl. Performed By: #### G TGSTF #### [facility] [id number] [address] [place] [address] [facility] LYNSEY JOHNSON ([id number]) 1995 F Date Time Provider Department 02/27/25 MANUEL SANCHES During your visit today, we recorded the following information about you: Becca Klein MA 02/27/2025 8:06 AM Signed Lab called at 8:03 am this morning to report patient vomited during 3 hour. GISELLE Small Karmon, MD 02/27/2025 8:53 AM Signed Noted. Ordered filed. MD Catarino Beebe Jennifer, RN 02/27/2025 9:07 AM Signed Patient called. She is asking if she can check her blood sugars for the remainder of her instead of redoing the 3 hour glucose. Diabetic testing supplies pending if agreeable to this plan. KAILASH Shirley Karmon, MD 02/27/2025 11:28 AM Signed That is reasonable. MD Catarino Beebe Jennifer, RN 02/27/2025 11:42 AM Signed Patient notified. Information sent via [employer] message. She called in with c/o feeling sweaty and dizzy while at work. She just tried to eat a little bit of her lunch and sit down. Patient vomited the glucola 40 min after she drank it. Patient questioning if her blood sugar is high and that's why she feels this way. Inquired how much water patient has had since vomiting. She's only drank a half a bottle of water. Encouraged to push fluids and finishing eating her lunch if she feels up to it. Please advise. KAILASH Shirley Karmon, MD 02/27/2025 11:54 AM Signed Recommend hydration and trying to eat protein rich foods. MD Michelle Beebe Trisha, RN 02/27/2025 11:58 AM Signed Patient notified. Deanna Mo RN Allergies As of Date: 02/27/2025 Noted Allergy Reaction ALMOND 08/07/2019 12 - Shortness of Breath Comments: Pt with EOE BARLEY 04/18/2018 12 - Shortness of Breath Comments: Patient diagnosed with Eosinophilic esophagitis SINGLETARY 07/03/2019 12 - Shortness of Breath BEEF CONTAINING PRODUCTS 04/18/2018 12 - Shortness of Breath Comments: Patient diagnosed with EOE CABBAGE 04/18/2018 12 - Shortness of Breath Comments: Patient diagnosed with EOE CHICKEN DERIVED 07/03/2019 12 - Shortness of Breath DAIRY AID (LACTASE) 04/18/2018 12 - Shortness of Breath Comments: Patient diagnosed with EOE EGG 04/18/2018 12 - Shortness of Breath Comments: Patient diagnosed with EOE GLUTEN 07/03/2019 12 - Shortness of Breath OATS 04/18/2018 12 - Shortness of Breath Comments: Patient diagnosed with EOE PEANUTS 04/18/2018 12 - Shortness of Breath Comments: Patient diagnosed with EOE All nuts except cashews PEAS 07/03/2019 12 - Shortness of Breath SOY 04/18/2018 12 - Shortness of Breath Comments: Patient diagnosed with EOE TOMATOES 04/18/2018 12 - Shortness of Breath Comments: Patient diagnosed with EOE WHEAT, WHEAT GERM 04/18/2018 12 - Shortness of Breath Comments: Patient diagnosed with EOE Date Reviewed: 02/21/2025 Reviewed by: Angelita Carbajal MA - Fully Assessed Reason for Visit: Orders [681] Primary Visit Diagnosis:Abnormal glucose complicating (HCC) [O99.810] Order(s):GEST GLUC CRESENCIO, 3-HR, 100 GM, FASTING [SQGTGST3] Order #: [id number] FUTURE Blood-Glucose MeterUse as directed to check glucose levels up to seven times daily.Disp: 1 eachRfl: 0 blood sugar diagnostic test stripUse as directed to check glucose levels up to seven times daily.Disp: 200 stripRfl: 8 LancetsUse as directed to check glucose levels up to seven times daily.Disp: 200 eachRfl: 8 Prescriptions as of 02/27/2025 - Blood-Glucose Meter Use as directed to check glucose levels up to seven times daily. - blood sugar diagnostic test strip Use as directed to check glucose levels up to seven times daily. - Lancets Use as directed to check glucose levels up to seven times daily. - lamoTRIgine ER (LAMICTAL XR) 250 mg 24 hr tablet Take 1 tablet by mouth twice daily. - levETIRAcetam (KEPPRA) 1,000 mg tablet Take 2 tablets by mouth every morning AND 2.5 tablets daily at bedtime. - folic acid 1 mg tablet Take 2 tablets by mouth once daily. - aspirin, enteric coated (ECOTRIN LOW STRENGTH) 81 mg EC tablet Take 1 tablet by mouth once daily. - pantoprazole DR (PROTONIX) 40 mg tablet Take 40 mg by mouth once daily. - vit/iron fum/folic ac ( 1 + 1 ORAL) Take by mouth once daily. 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 BLOOD SUGA (more content not included)... Normal [facility] CNPNon 02-22-2025 CNPN Telephone (OBGYWM) LYNSEY JOHNSON ([id number]) 1995 F Date Time Provider Department 02/22/25 BUZZ CARRANZA OBCIPRIANO During your visit today, we recorded the following information about you: Buzz Carranza MD 02/22/2025 12:25 PM Signed See result note 3 hr GTT ordered Karla Huddleston RN 02/22/2025 2:31 PM Signed See results f/u note documented by this RN. Mychart also sent to Pt after speaking to Pt to re-enforce instructions. Karla Huddleston RN Allergies As of Date: 02/22/2025 Noted Allergy Reaction ALMOND 08/07/2019 12 - Shortness of Breath Comments: Pt with EOE BARLEY 04/18/2018 12 - Shortness of Breath Comments: Patient diagnosed with Eosinophilic esophagitis SINGLETARY 07/03/2019 12 - Shortness of Breath BEEF CONTAINING PRODUCTS 04/18/2018 12 - Shortness of Breath Comments: Patient diagnosed with EOE CABBAGE 04/18/2018 12 - Shortness of Breath Comments: Patient diagnosed with EOE CHICKEN DERIVED 07/03/2019 12 - Shortness of Breath DAIRY AID (LACTASE) 04/18/2018 12 - Shortness of Breath Comments: Patient diagnosed with EOE EGG 04/18/2018 12 - Shortness of Breath Comments: Patient diagnosed with EOE GLUTEN 07/03/2019 12 - Shortness of Breath OATS 04/18/2018 12 - Shortness of Breath Comments: Patient diagnosed with EOE PEANUTS 04/18/2018 12 - Shortness of Breath Comments: Patient diagnosed with EOE All nuts except cashews PEAS 07/03/2019 12 - Shortness of Breath SOY 04/18/2018 12 - Shortness of Breath Comments: Patient diagnosed with EOE TOMATOES 04/18/2018 12 - Shortness of Breath Comments: Patient diagnosed with EOE WHEAT, WHEAT GERM 04/18/2018 12 - Shortness of Breath Comments: Patient diagnosed with EOE Date Reviewed: 02/21/2025 Reviewed by: Angelita Carbajal MA - Fully Assessed Reason for Visit: Orders [681] Primary Visit Diagnosis:Abnormal glucose complicating (HCC) [O99.810] Order(s):GEST GLUC CRESENCIO, 3-HR, 100 GM, FASTING [SQGTGST3] Order #: [id number] FUTURE Prescriptions as of 02/22/2025 - lamoTRIgine ER (LAMICTAL XR) 250 mg 24 hr tablet Take 1 tablet by mouth twice daily. - levETIRAcetam (KEPPRA) 1,000 mg tablet Take 2 tablets by mouth every morning AND 2.5 tablets daily at bedtime. - folic acid 1 mg tablet Take 2 tablets by mouth once daily. - aspirin, enteric coated (ECOTRIN LOW STRENGTH) 81 mg EC tablet Take 1 tablet by mouth once daily. - pantoprazole DR (PROTONIX) 40 mg tablet Take 40 mg by mouth once daily. - vit/iron fum/folic ac ( 1 + 1 ORAL) Take by mouth once daily. 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] 04/03/2022 Supervision of high risk , antepartum *10/02/2024 Benign gestational thrombocytopenia, antepartum*02/22/2025 Abnormal glucose complicating (HCC) [*02/22/2025 Encounter Status:Closed by BUZZ CARRANZA on 02/22/25 Normal [facility] CBC panel Auto (Bld)on 02-21 Erythrocyte distribution width (RBC) [Ratio] 12.8 % Normal 11.5-15.0 [facility] Comment on above: Order Comment: Speci men Type: BLOOD SPECIMEN Ordering Facility: [facility] Address: [address] [place] [address] Performed By: #### 5 8410-2 #### [id number] [address] [place] [address] [place] Hematocrit (Bld) [Volume fraction] 32.7 % Low 36.0-46.0 [facility] Comment on above: Order Comment: Speci men Type: BLOOD SPECIMEN Ordering Facility: [facility] Address: [address] [place] [address] Performed By: #### 5 8410-2 #### [facility] [id number] [address] [place] [address] [place] Hemoglobin (Bld) [Mass/Vol] 11.6 g/dL Normal 11.5-15.5 [facility] Comment on above: Order Comment: Speci men Type: BLOOD SPECIMEN Ordering Facility: [facility] Address: [address] [place] [address] Performed By: #### 5 8410-2 #### [facility] CLIA [id number] [address] [place] [address] [place] MCH (RBC) [Entitic mass] 33.1 pg Normal 26.0-34.0 [facility] Comment on above: Order Comment: Speci men Type: BLOOD SPECIMEN Ordering Facility: [facility] Address: [address] [place] [address] Performed By: #### 5 8410-2 #### [facility] CLIA [id number] [address] [place] [address] [place] MCHC (RBC) [Mass/Vol] 35.5 g/dL Normal 30.5-36.0 [facility] Comment on above: Order Comment: Speci men Type: BLOOD SPECIMEN Ordering Facility: [facility] Address: [address] [place] [address] Performed By: #### 5 8410-2 #### [facility] CLIA [id number] [address] [place] [address] [place] MCV (RBC) [Entitic vol] 93.4 fL Normal 80.0-100.0 [facility] Comment on above: Order Comment: Speci men Type: BLOOD SPECIMEN Ordering Facility: [facility] Address: [address] [place] [address] Performed By: #### 5 8410-2 #### [facility] CLIA [id number] [address] [place] [address] [place] Nucleated RBC (Bld) [#/Vol] 10*3/uL Normal <0.01 [facility] Comment on above: Order Comment: Speci men Type: BLOOD SPECIMEN Ordering Facility: [facility] Address: [address] [place] [address] Performed By: #### 5 8410-2 #### [facility] CLIA [id number] [address] [place] [address] [place] Platelet mean volume (Bld) [Entitic vol] 10.4 fL Normal 9.0-12.7 [facility] Comment on above: Order Comment: Speci men Type: BLOOD SPECIMEN Ordering Facility: [facility] Address: [address] [place] [address] Performed By: #### 5 8410-2 #### [facility] CLIA [id number] [address] [place] [address] [place] Platelets (Bld) [#/Vol] 146 10*3/uL Low 150-400 [facility] Comment on above: Order Comment: Speci men Type: BLOOD SPECIMEN Ordering Facility: [facility] Address: [address] [place], [place] [address] Performed By: #### 5 8410-2 #### [facility] CLIA [id number] [address] [place] [address] [place] RBC (Bld) [#/Vol] 3.50 10*6/uL Low 3.90-5.20 [facility] Comment on above: Order Comment: Speci men Type: BLOOD SPECIMEN Ordering Facility: [facility] Address: [address] [place] [address] Performed By: #### 5 8410-2 #### [facility] CLIA [id number] [address] [place] [address] [place] WBC (Bld) [#/Vol] 6.81 10*3/uL Normal 3.70-11.00 [facility] Comment on above: Order Comment: Speci men Type: BLOOD SPECIMEN Ordering Facility: [facility] Address: [address] [place] [address] Performed By: #### 5 8410-2 #### [facility] CLIA [id number] [address] [place] [address] [place] GESTATIONAL GLUCOSE SCREEN, 1-HOUR, 50 GRAM, NON-FASTINGon 02-21-2025 Glucose [Mass/Vol] 184 mg/dL High 74-134 [facility] Comment on above: Order Comment: Speci men Type: BLOOD SPECIMEN Ordering Facility: [facility] Address: [address] [place], [place] [address] Result Comment: [facility] Congress of Obstetricians and Gynecologists (Jesus/Jairo) guidelines state a gestational diabetes mellitus positive screen is made, in women not previously diagnosed with overt diabetes, when the 1 hr plasma glucose level is equal to or above 140 mg/dL. The [facility] 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 and [facility] [place] recommends a 135 mg/dL cutoff. Performed By: #### 5 8410-2 #### [facility] CLIA [id number] [address] [place] [address] [place] Reagin and Treponema pallidu m IgG and IgM [Interp]on 02-21-2025 T. pallidum IgG+IgM IA Ql (S) Non-Reactive Normal Nonreactive [facility] Comment on above: Order Comment: Speci men Type: BLOOD SPECIMENOrdering Facility: [facility] Address: [address] [place] [address] Performed By: #### 7 3752-8 ####[facility] LABIA [id number] [place] [address] [place] Reagin+T pallidum IgG+IgM Se rPl-Impon 02-21-2025 Reagin and Treponema pallidum IgG and IgM [Interp] Cannot exclude recent Treponemal infection if specimen collected within 7-10 days after appearance of suspect lesions or 2-3 weeks after an exposure. Clinical correlation is required. Normal [facility] Comment on above: Order Comment: Speci men Type: BLOOD SPECIMENOrdering Facility: [facility] Address: [address] [place] [address] Performed By: #### 7 3752-8 ####[facility] LABIA [id number] [address] [place] CNPNon 01-31-2025 CNPN Telephone (NE50MN) LYNSEY JOHNSON ([id number]) 1995 F Date Time Provider Department 01/31/25 NATALIYA HOWE NE50MN During your visit today, we recorded the following information about you: Nataliya Howe PA-C 01/31/2025 3:47 PM Signed December labs results received Latest Ref Rng 01/27/2025 Levetiracetam 12.0 - 46.0 ug/mL 16.5 Lamotrigine 1.0 - 13.0 ug/mL 7.1 Goal levetiracetam (keppra) levels >20 and LTG level >7 Current doses: Levetiracetam (keppra) 2000mg twice daily Lamotrigine XR 250mg twice daily Okay to continue current dose of lamotrigine Would suggest adding 500mg of levetiracetam (keppra) daily at bedtime for a new bed time dose of 2500 Please call patient to review and check in on if there has been any seizures The following approved medication requests have been transmitted electronically. Requested Prescriptions Signed Prescriptions Disp Refills levETIRAcetam (KEPPRA) 1,000 mg tablet 405 tablet 3 Sig: Take 2 tablets by mouth every morning AND 2.5 tablets daily at bedtime. Authorizing Provider: NATALIYA HOWE PA-C Weaver, Kristen, RN 01/31/2025 3:54 PM Signed Unable to reach patient by phone, left . message with recommendations. KAILASH Washington Kristen, RN 02/01/2025 8:02 AM Signed Patient agreeable, stated she hasn't had seizures in years. Routed to [facility]OXANNE for FYI. Lily Zapata RN Allergies As of Date: 01/31/2025 Noted Allergy Reaction ALMOND 08/07/2019 12 - Shortness of Breath Comments: Pt with EOE BARLEY 04/18/2018 12 - Shortness of Breath Comments: Patient diagnosed with Eosinophilic esophagitis SINGLETARY 07/03/2019 12 - Shortness of Breath BEEF CONTAINING PRODUCTS 04/18/2018 12 - Shortness of Breath Comments: Patient diagnosed with EOE CABBAGE 04/18/2018 12 - Shortness of Breath Comments: Patient diagnosed with EOE CHICKEN DERIVED 07/03/2019 12 - Shortness of Breath DAIRY AID (LACTASE) 04/18/2018 12 - Shortness of Breath Comments: Patient diagnosed with EOE EGG 04/18/2018 12 - Shortness of Breath Comments: Patient diagnosed with EOE GLUTEN 07/03/2019 12 - Shortness of Breath OATS 04/18/2018 12 - Shortness of Breath Comments: Patient diagnosed with EOE PEANUTS 04/18/2018 12 - Shortness of Breath Comments: Patient diagnosed with EOE All nuts except cashews PEAS 07/03/2019 12 - Shortness of Breath SOY 04/18/2018 12 - Shortness of Breath Comments: Patient diagnosed with EOE TOMATOES 04/18/2018 12 - Shortness of Breath Comments: Patient diagnosed with EOE WHEAT, WHEAT GERM 04/18/2018 12 - Shortness of Breath Comments: Patient diagnosed with EOE Date Reviewed: 01/22/2025 Reviewed by: Angelita Carbajal MA - Fully Assessed Visit Diagnosis:Generalized epilepsy (HCC) [G40.309] Order(s):levETIRAcetam (KEPPRA) 1,000 mg tabletTake 2 tablets by mouth every morning AND 2.5 tablets daily at bedtime.Disp: 405 tabletRfl: 3 Prescriptions as of 02/01/2025 - levETIRAcetam (KEPPRA) 1,000 mg tablet Take 2 tablets by mouth every morning AND 2.5 tablets daily at bedtime. - lamoTRIgine ER (LAMICTAL XR) 250 mg 24 hr tablet Take 1 tablet by mouth two times a day. - folic acid 1 mg tablet Take 2 tablets by mouth once daily. - aspirin, enteric coated (ECOTRIN LOW STRENGTH) 81 mg EC tablet Take 1 tablet by mouth once daily. - pantoprazole DR (PROTONIX) 40 mg tablet Take 40 mg by mouth once daily. - vit/iron fum/folic ac ( 1 + 1 ORAL) Take by mouth once daily. 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 Medications Discontinued During This Encounter Prescriptions - levETIRAcetam (KEPPRA) 1,000 mg tablet (Discontinued) Take 2 tablets by mouth two times a day. Encounter Status:Closed by LILY ZAPATA on 02/01/25 Normal [facility] lamoTRIgine SerPl-mCncon lamoTRIgine [Mass/Vol] 7.1 ug/mL Normal 1.0-13.0 [facility] Comment on above: Order Comment: Tran del cid Type: BLOOD SPECIMEN Ordering Facility: [facility] Address: [address] [place] [address] Result Comment: This test was developed, and its performance characteristics determined by the [facility] Department of Pathology and Laboratory Medicine. It has not been cleared or approved by the FDA. The [facility] Department of Pathology and Laboratory Medicine is regulated under CLIA as qualified to perform high-complexity testing. This test is used for clinical purposes. It should not be regarded as investigational or for research. Performed By: #### 6 948-4 #### [facility] CLIA [id number] [address] [place] [address] OF [facility] levETIRAcetam SerPl-mCncon 0 01-27-2025 levETIRAcetam [Mass/Vol] 16.5 ug/mL Normal 12.0-46.0 [facility] Comment on above: Order Comment: Tran del cid Type: BLOOD SPECIMEN Ordering Facility: [facility] Address: [address] [place] [address] Result Comment: This test is not suitable for patients receiving treatment with the drug brivaracetam (Briviact). The drug causes an interference that may lead to falsely elevated levetiracetam results. Reference ranges and high/low indicator flags are provided as general guidelines only. The treating physician must determine appropriate target levels/dosing based on the specific clinical situation. This test was developed, and its performance characteristics determined by the [facility] Department of Pathology and Laboratory Medicine. It has not been cleared or approved by the FDA. The [facility] Department of Pathology and Laboratory Medicine is regulated under CLIA as qualified to perform high-complexity testing. This test is used for clinical purposes. It should not be regarded as investigational or for research. Performed By: #### 5 195-3, 03423-3 #### [facility] CLIA [id number] [address] Examination level ultrasound on 12-25-2024 Indication Detailed anatomic survey history of epilepsy Impression The patient is referred for a standard anatomic survey. - Single, live, intrauterine . - biometry is consistent with the established gestational age. - No malformations were visualized on a complete standard anatomic survey. - The amniotic fluid volume is normal amount. - The placenta is posterior, fundal. Possible accessory placental lobe. - The Transvaginal cervical length measures 39.9 mm with no evidence of funneling or other dynamic changes. - Not all structural malformations can be detected by ultrasound examination. Recommendations - growth every 4 weeks starting at 28 weeks. - Additional follow up as clinically indicated. Maternal Assessment Height 157 cm Height (ft) 5 ft Height (in) 2 in Physical Exam Initial weight (lb) 119 lb Initial BMI 21.77 kg/m Maternal assessment other: 1 Para 0 , REMOTE READ Method Transabdominal and transvaginal ultrasound examination. View: Adequate visualization Barron . Number of fetuses: 1 Dating LMP on: 08/04/2024 GA by LMP 20 w + 3 d MARIA T by LMP: 05/11/2025 GA by prior assessment 20 w + 3 d MARIA T by prior assessment: 05/11/2025 Ultrasound examination on: 12/25/2024 GA by U/S based upon: AC, BPD, Femur, HC GA by U/S 20 w + 0 d MARIA T by U/S: 05/14/2025 Assigned: based on stated MARIA T, selected on 12/25/2024 Assigned GA 20 w + 3 d Assigned MARIA General Evaluation Cardiac activity present. FHR 140 bpm. movements: present. Presentation: cephalic Placenta: Placental site: posterior, fundal. succenturiate placenta located anteriorly Umbilical cord: Cord vessels: 3 vessel cord Amniotic fluid: Amount of AF: normal amount. MVP 5.7 cm Growth Overview Exam date GA BPD (mm) HC (mm) AC (mm) FL (mm) HL (mm) EFW (g) 12/25/2024 20w 3d 46 28% 177 42% 151.4 42% 31 34% 30.2 33% 328 25% Biometry Standard BPD 46.0 mm 19w 6d 28% Hadlock OFD 64.0 mm 20w 3d 72% Nicolaides HC 177.0 mm 20w 1d 42% Frank Cerebellum tr 21.4 mm 20w 2d 64% Hill Nuchal fold 3.4 mm AC 151.4 mm 20w 3d 42% Hadlock Femur 31.0 mm 19w 5d 34% Frank Humerus 30.2 mm 20w 0d 33% Frank EFW 328 g 20w 0d 25% Hadlock EFW (lb) 0 lb EFW (oz) 12 oz EFW by: Hadlock (HC-AC-FL) Extended Physician Office Nurse 7.6 mm CM 3.0 mm 3% Nicolaides Extremities / Bony Struc FL / HC 0.18 19% Hadlock Other Structures FHR 140 bpm Anatomy Cranium: normal Lateral ventricles: normal Choroid plexus: normal Midline falx: normal Cavum septi pellucidi: normal Cerebellum: normal Cisterna magna: normal Head / Neck Vermis: normal Neck: normal Nuchal fold: normal Lips: normal Profile: normal Nose: normal Face Maxilla: normal Mandible: normal Orbits: normal Lens: normal 4-chamber view: normal RVOT view: normal LVOT view: normal 3-vessel view: normal 4-uijpdt-tfipolh view: normal Heart / Thorax Situs: situs solitus (normal) Aortic arch view: normal SVC: normal IVC: normal Cardiac axis: normal Rt lung: normal Lt lung: normal Diaphragm: normal Cord insertion: normal Stomach: normal Kidneys: normal Bladder: normal Genitals: normal Abdomen Abdom. wall: normal Cervical spine: normal Thoracic spine: normal Lumbar spine: normal Sacral spine: normal Arms: normal Legs: normal Rt upper arm: normal Rt forearm: normal Rt hand: normal Rt fingers: normal Lt upper arm: normal Lt forearm: normal Lt hand: normal Lt fingers: normal Rt upper leg: normal Rt lower leg: normal Rt foot: normal Lt upper leg: normal Lt lower leg: normal Lt foot: normal sex: female Wants to know sex: yes Maternal Structures Uterus / Cervix Uterus: Visualized Cervix: Visualized Approach: Transvaginal Cervical length 39.9 mm Ovaries / Tubes / Adnexa Rt ovary: Visualized Lt ovary: Not visualized Performed By: Marjorie Bruno RDMS, RVT Read By: Louise Li M.D. MATERNAL MEDICINE [facility] Radiology Study observation (narrative) [facility] Tarah 12-15-2024 CNPN Telephone (NE50MN) LYNSEY JOHNSON ([id number]) 1995 F Date Time Provider Department 12/15/24 YAMILETH EWING NE50MN During your visit today, we recorded the following information about you: Kathy Davis 12/15/2024 4:15 PM Signed Prior Authorization Needed: Received by: Fax Requested by (pharmacy name): [facility] Phone number: [phone] Name of medication: Levetiracetem Brand or Generic: generic Strength and dosage: 1,000 mg / Sig: Take 2 tablets by mouth two times a day. Quantity Override: Not Indicated Insurance company name and phone #: CMM / Luke: [id number] Patient of Dr. Ewing Forwarded to nurse. Alisa Henry RN 12/15/2024 5:29 PM Signed Unable to complete via Medicast - patient inactive - searched under maiden/ name(s) Confirmed pharmacy benefits with patient as accurate in Epic Spoke with Nate Pandey - PA must be submitted via [employer] webportal PA submitted as follows: Mirza Medication: LEV IR 1000 mg tablet Qty: 360/90 EOC ID: [id number] Will await determination KAILASH Benavidez Elizabeth, RN 12/18/2024 2:37 PM Signed Received electronic PA approval from [employer] as follows: Drug/Service Name: LEVETIRACETAM 1,000 MG TABLET Physician/Nurse: Yamileth Ewing EOC ID: [id number] Status: Approved Date Requested: 12/15/2024 17:22:10 Date Closed: 12/18/2024 11:56:30 Dispensing Location[facility] ========= Spoke with Vonda Burkett [employer] electrical technician - prescription processed; will schedule shipment to patient within next 1-2 days OCP Collective message to patient Alisa Henry RN Allergies As of Date: 12/15/2024 Noted Allergy Reaction ALMOND 08/07/2019 12 - Shortness of Breath Comments: Pt with EOE BARLEY 04/18/2018 12 - Shortness of Breath Comments: Patient diagnosed with Eosinophilic esophagitis SINGLETARY 07/03/2019 12 - Shortness of Breath BEEF CONTAINING PRODUCTS 04/18/2018 12 - Shortness of Breath Comments: Patient diagnosed with EOE CABBAGE 04/18/2018 12 - Shortness of Breath Comments: Patient diagnosed with EOE CHICKEN DERIVED 07/03/2019 12 - Shortness of Breath DAIRY AID (LACTASE) 04/18/2018 12 - Shortness of Breath Comments: Patient diagnosed with EOE EGG 04/18/2018 12 - Shortness of Breath Comments: Patient diagnosed with EOE GLUTEN 07/03/2019 12 - Shortness of Breath OATS 04/18/2018 12 - Shortness of Breath Comments: Patient diagnosed with EOE PEANUTS 04/18/2018 12 - Shortness of Breath Comments: Patient diagnosed with EOE All nuts except cashews PEAS 07/03/2019 12 - Shortness of Breath SOY 04/18/2018 12 - Shortness of Breath Comments: Patient diagnosed with EOE TOMATOES 04/18/2018 12 - Shortness of Breath Comments: Patient diagnosed with EOE WHEAT, WHEAT GERM 04/18/2018 12 - Shortness of Breath Comments: Patient diagnosed with EOE Date Reviewed: 11/27/2024 Reviewed by: Catie Alejandro APRN.[employer] - Fully Assessed Reason for Visit: Medication Authorization [1049] Cmt: Levetiractam Prescriptions as of 01/01/2025 - levETIRAcetam (KEPPRA) 1,000 mg tablet Take 2 tablets by mouth two times a day. - lamoTRIgine ER (LAMICTAL XR) 250 mg 24 hr tablet Take 1 tablet by mouth two times a day. - folic acid 1 mg tablet Take 2 tablets by mouth once daily. - aspirin, enteric coated (ECOTRIN LOW STRENGTH) 81 mg EC tablet Take 1 tablet by mouth once daily. - pantoprazole DR (PROTONIX) 40 mg tablet Take 40 mg by mouth once daily. - vit/iron fum/folic ac ( 1 + 1 ORAL) Take by mouth once daily. 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 It has not been cleared or approved by the FDA. The [facility] Department of Pathology and Laboratory Medicine is regulated under CLIA as qualified to perform high-complexity testing. This test is used for clinical purposes. It should not be regarded as investigational or for research. Performed By: #### 5 195-3, 93577-9 #### [facility] CLIA [id number] [address] [place] levETIRAcetam SerPl-mCncon 0 11-20-2024 levETIRAcetam [Mass/Vol] 11.1 ug/mL Low 12.0-46.0 [facility] Comment on above: Order Comment: Tran del cid Type: BLOOD SPECIMEN Ordering Facility: [facility] Address: [address] [address] Result Comment: This test is not suitable for patients receiving treatment with the drug brivaracetam (Briviact). The drug causes an interference that may lead to falsely elevated levetiracetam results. Reference ranges and high/low indicator flags are provided as general guidelines only. The treating physician must determine appropriate target levels/dosing based on the specific clinical situation. This test was developed, and its performance characteristics determined by the [facility] Department of Pathology and Laboratory Medicine. It has not been cleared or approved by the FDA. The [facility] Department of Pathology and Laboratory Medicine is regulated under CLIA as qualified to perform high-complexity testing. This test is used for clinical purposes. It should not be regarded as investigational or for research. Performed By: #### 5 195-3, 46262-7 #### [facility] CLIA [id number] [address] Examination level ultrasound on 11-01-2024 Indication First trimester anatomic survey history of epilepsy Impression The patient is referred for a first trimester anatomy scan including nuchal translucency measurement as clinically indicated. - Single, live, intrauterine . - [place] rump length measurement is consistent with the established gestational age. - A qualitative screen of the nuchal translucency and other anatomic structures was unremarkable on a complete first trimester anatomic assessment. - Not all structural malformations can be detected by ultrasound examination. Maternal Structures: Right Ovary: Size 23 mm x 15 mm x 10 mm Left Ovary: Size 19 mm x 13 mm x 11 mm Recommendations Return for anatomy ultrasound Maternal Assessment Height 157 cm Height (ft) 5 ft Height (in) 2 in Physical Exam Initial weight (lb) 119 lb Initial BMI 21.77 kg/m Maternal assessment other: 1 Para 0 REMOTE READ Method Transabdominal ultrasound examination Barron . Number of fetuses: 1 Dating LMP on: 08/04/2024 GA by LMP 12 w + 5 d MARIA T by LMP: 05/11/2025 GA by prior assessment 12 w + 5 d MARIA T by prior assessment: 05/11/2025 Ultrasound examination on: 11/01/2024 GA by U/S based upon: CRL GA by U/S 12 w + 4 d MARIA T by U/S: 05/12/2025 Assigned: based on stated MARIA T, selected on 11/01/2024 Assigned GA 12 w + 5 d Assigned MARIA General Evaluation Cardiac activity present Placenta: anterior Cord vessels: 3 vessel cord Amniotic fluid: normal amount Biometry Standard FHR 153 bpm CRL 60.4 mm 12w 4d 25% [place] First Trimester Anatomy Calvarium: normal Falx cerebri: normal Choroid plexus: normal Profile: normal Nasal bone: normal Retronasal triangle: normal Maxilla: normal Mandible: normal Nuchal translucency: Unremarkable Situs: normal Cardiac position: normal Cardiac axis: normal 4-chamber view: normal 4-chamber view with color: normal [id number]-vmxpijd view: normal Abdominal cord insertion: normal Stomach: normal Kidneys: normal Bladder: normal Color doppler of perivesical umbilical arteries: normal Vertebral alignment: normal Arms: normal Hands: normal Legs: normal Feet: normal Maternal Structures Uterus / Cervix Uterus: Visualized Uterus length 113 mm Uterus width 90 mm Uterus height 74 mm Uterus Vol 391.7 cm Ovaries / Tubes / Adnexa Rt ovary: Visualized Rt ovary D1 23 mm Rt ovary D2 15 mm Rt ovary D3 10 mm Rt ovary Vol 1.7 cm Lt ovary: Visualized Lt ovary D1 19 mm Lt ovary D2 13 mm Lt ovary D3 11 mm Lt ovary Vol 1.4 cm Performed By: Marjorie Bruno RDMS, RVT Read By: Louise Li M.D. MATERNAL MEDICINE [facility] Radiology Study observation (narrative) [facility] [id number] PLUSon 11-01-2024 Cell-free DNA./Cell-free DNA.total Dosage of chromosome-specific cfDNA (cfDNA) [Molar fraction] 27% Normal [facility] Comment on above: Order Comment: Speci men Type: BLOOD SPECIMEN Ordering Facility: [facility] Address: [address] [place] [address] Performed By: #### 5 8410-2 #### [facility] CLIA [id number] [address] [place] [address] [place] Chr 13+18+21+X+Y aneuploidy Dosage of chromosome-specific cfDNA Ql (cfDNA) Negative Normal [facility] Comment on above: Order Comment: Speci men Type: BLOOD SPECIMEN Ordering Facility: [facility] Address: [address] [place] [address] Performed By: #### 5 8410-2 #### [facility] CLIA [id number] [address] [place] [address] Chr 21 trisomy Dosage of chromosome-specific cfDNA Ql (cfDNA) Negative Normal [facility] Comment on above: Order Comment: Speci men Type: BLOOD SPECIMEN Ordering Facility: [facility] Address: [address] [place] [address] Performed By: #### 5 8410-2 #### [facility] CLIA [id number] [address] [place] [address] [place] Chr X and Y aneuploidy risk Sequencing Ql (cfDNA) [Interp] Not detected Normal [facility] Comment on above: Order Comment: Speci men Type: BLOOD SPECIMEN Ordering Facility: [facility] Address: [address] [place] [address] Result Comment: Not Detected Not Detected Performed By: #### 5 8410-2 #### [facility] CLIA [id number] [address] [place] [address] Citation Saúl (Reference lab test) Comment Normal [facility] Comment on above: Order Comment: Speci men Type: BLOOD SPECIMEN Ordering Facility: [facility] Address: [address] [place] [address] Result Comment: 1. P ame MATHEWS, et al. Pao Med. 2012;14(3):296-305. 2. Louisa ZARATE et al. Prenat Diag. 2013;33(6):591-597. 3. Ananth C, et al. Clin Chem. 2015 Apr;61(4):608-616. 4. Ita MATHEWS et al. Pao Med. 2011;13(11):913-920. 5. ACOG/SMFM Practice Bulletin No. 226, Feb 2020. Performed By: #### 5 8410-2 #### [facility] CLIA [id number] [address] [place] [address] [place] Gestational age Estimated from conception date Barron Normal [facility] Comment on above: Order Comment: Tran del cid Type: BLOOD SPECIMEN Ordering Facility: [facility] Address: [address] [place] [address] Performed By: #### 5 8410-2 #### [facility] CLIA [id number] [address] [place] [address] [place] GESTATIONALAGE AGE > OR = 9W Yes Normal [facility] Comment on above: Order Comment: Tran del cid Type: BLOOD SPECIMEN Ordering Facility: [facility] Address: [address] [place] [address] Performed By: #### 5 8410-2 #### [facility] CLIA [id number] [address] [place] [address] [place] Laboratory comment Saúl (Report) Comment Normal [facility] Comment on above: Order Comment: Tran del cid Type: BLOOD SPECIMEN Ordering Facility: [facility] Address: [address] [place] [address] Result Comment: The MaterniT(R) 21 PLUS laboratory-developed test (LDT) analyzes circulating cell-free DNA from a maternal blood sample. This test is used for screening purposes and not diagnostic. Clinical correlation is recommended. Validation data on twin pregnancies is limited and the ability of this test to detect aneuploidy in higher multiple gestations has not yet been validated. Performed By: #### 5 8410-2 #### [facility] CLIA [id number] [address] [place] [address] director operations broadcast name Nom (Provider) Comment Normal [facility] Comment on above: Order Comment: Gregi maria eugenia Type: BLOOD SPECIMEN Ordering Facility: [facility] Address: [address] [place] [address] Result Comment: This specimen showed an expected representation of chromosome 21, 18 and 13 material. Clinical correlation is suggested. Comment Manolo Beth MD, PhD, Director, [employer] Performed By: #### 5 8410-2 #### [facility] CLIA [id number] [address] [place] [address] [place] LIMITATIONS OF THE TEST Comment Normal [facility] Comment on above: Order Comment: Speci men Type: BLOOD SPECIMEN Ordering Facility: [facility] Address: [address] [place] [address] Result Comment: Tomas thompson the results of these tests are highly reliable, discordant results, including inaccurate sex prediction, may occur due to placental, maternal, or mosaicism or neoplasm; vanishing twin; prior maternal organ transplant; or other causes. These tests are screening tests and not diagnostic; they do not replace the accuracy and precision of diagnosis with CVS or amniocentesis. A patient with a positive test result should be referred for genetic counseling and offered invasive diagnosis for confirmation of test results.[5] The results of this testing, including the benefits and limitations, should be discussed with a qualified healthcare provider. management decisions, including termination of the , should not be based on the results of these tests alone. The healthcare provider is responsible for the use of this information in the management of their patient. Sex chromosomal aneuploidies are not reportable for known multiple gestations. A negative result does not ensure an unaffected nor does it exclude the possibility of other chromosomal abnormalities or defects which are not a part of these tests. An uninformative result may be reported, the causes of which may include, but are not limited to, insufficient sequencing coverage, noise or artifacts in the region, amplification or sequencing bias, or insufficient fraction. These tests are not intended to identify pregnancies at risk for neural tube defects or ventral wall defects. Testing for whole chromosome abnormalities (including sex chromosomes) and for subchromosomal abnormalities could lead to the potential discovery of both and maternal genomic abnormalities that could have major, minor, or no, clinical significance. Evaluating the significance of a positive or a non-reportable result may involve both invasive testing and additional studies on the mother. Such investigations may lead to a diagnosis of maternal chromosomal or subchromosomal abnormalities, which on occasion may be associated with benign or malignant maternal neoplasms. These tests may not accurately identify triploidy, balanced rearrangements, or the precise location of subchromosomal duplications or deletions; these may be detected by diagnosis with CVS or amniocentesis. The ability to report results may be impacted by maternal BMI, maternal weight, maternal systemic lupus erythematosus (SLE) and/or by certain pharmaceutical agents such as low molecular weight heparin (for example: Lovenox(R), Xaparin(R), Clexane(R) and Fragmin(R)). Performed By: #### 5 8410-2 #### [facility] CLIA [id number] [address] [place] [address] [place] [facility] Monosomy X risk Dosage of chromosome-specific cfDNA Ql (Plasma cell-free+WBC DNA) [Interp] Not detected Normal [facility] Comment on above: Order Comment: Tran del cid Type: BLOOD SPECIMEN Ordering Facility: [facility] Address: [address] [place] [address] Performed By: #### 5 8410-2 #### [id number] [address] [place] [address] NEGATIVE PREDICTIVE VALUE Note Normal [facility] Comment on above: Order Comment: Tran del cid Type: BLOOD SPECIMEN Ordering Facility: [facility] Address: [address] [place] [address] Result Comment: The Negative Predictive Value (NPV) for trisomy 21, 18, and 13 is greater than 99%. The NPV for SCA and ESS cannot be calculated as SCA and ESS are only reported when an abnormality is detected. Performed By: #### 5 8410-2 #### [facility] [id number] [address] [place] [address] PERFORMANCE CHARACTERISTICS Note Normal [facility] Comment on above: Order Comment: Tran del cid Type: BLOOD SPECIMEN Ordering Facility: [facility] Address: [address] [place] [address] Result Comment: ! Sex ! Accuracy: 99.4% ! ! ! ! Region (associated syndrome) ! Est. Sens# ! Est. Spec ! ! ! ! Trisomy 21 (Down Syndrome) ! 99.1% ! 99.9% ! ! ! ! Trisomy 18 (Fernandez Syndrome) ! >99.9% ! 99.6% ! ! ! ! Trisomy 13 (Patau Syndrome) ! 91.7% ! 99.7% ! ! ! ! Sex Chromosome Aneuploidies## ! 96.2% ! 99.7% ! ! ! * As reported in [facility] database nstd37 [https://www.ncbi.nlm.nih.gov/dbvar/studies/nstd37/ ] # Estimated Sensitivity. Sensitivity estimated across the observed size distribution of each syndrome [per ISC[employer] database nstd37] and across the range of fractions observed in routine clinical NIPT. Actual sensitivity can also be influenced by other factors such as the size of the event, total sequence counts, amplification bias, or sequence bias. ## Barron gestation only. Performed By: #### 5 8410-2 #### [facility] [id number] [address] [place] [address] [place] POSITIVE PREDICTIVE VALUE N/A Normal [facility] Comment on above: Order Comment: Speci men Type: BLOOD SPECIMEN Ordering Facility: [facility] Address: [address] [place] [address] Performed By: #### 5 8410-2 #### [facility] [id number] [address] [place] [address] Reference Lab Test Method Comment Normal [facility] Comment on above: Order Comment: Speci men Type: BLOOD SPECIMEN Ordering Facility: [facility] Address: [address] [place] [address] Result Comment: See Notes Circulating cell-free DNA was purified from the plasma component of maternal blood. The extracted DNA was then converted into a genomic DNA library for aneuploidy analysis of chromosomes 21, 18, and 13 via next generation sequencing.[1] Optional findings based on the test order include sex chromosome aneuploidy (SCA)[2], and enhanced sequencing series (ESS)[3], which will only be reported on as an additional finding when an abnormality is detected. SCA testing includes information on X and Y representation, while ESS testing includes deletions in selected regions (22q, 15q, 11q, 8q, 5p, 4p, 1p) and trisomy of chromosomes 16 and 22. Performed By: #### 5 8410-2 #### [facility] [id number] [address] [place] [address] [place] Service comment (Unsp spec) [Interp] Comment Normal [facility] Comment on above: Order Comment: Speci men Type: BLOOD SPECIMEN Ordering Facility: [facility] Address: [address] [place] [address] Result Comment: See Notes [employer]. is a subsidiary of [employer], using the brand [employer]. This test was developed and its performance characteristics determined by [employer]. It has not been cleared or approved by the Food and Drug Administration. This laboratory is certified under the Clinical Laboratory Improvement Amendments (CLIA) as qualified to perform high complexity clinical laboratory testing and accredited by the [employer] (CAP). If there is future clinical need for adding MaterniT GENOME testing, this specimen will be available until term. [facility] samples will not be retained beyond 60 days. [facility] patients will have to send a new sample for re-sequencing ([facility] Test Code: [id number]). Performed By: #### 5 8410-2 #### [facility] CLIA [id number] [address] [place] [address] [place] Sex Dosage of chromosome-specific cfDNA Nom (cfDNA) Comment Normal [facility] Comment on above: Order Comment: Speci men Type: BLOOD SPECIMEN Ordering Facility: [facility] Address: [address] [place] [address] Result Comment: Cons istent with Female Performed By: #### 5 8410-2 #### [facility] [id number] [address] [place] [address] OF [place] Test performance information Saúl (Unsp spec) Comment Normal [facility] Comment on above: Order Comment: Speci men Type: BLOOD SPECIMEN Ordering Facility: [facility] Address: [address] [place] [address] Result Comment: The performance characteristics of the MaterniT(R) 21 PLUS laboratory-developed test (LDT) have been determined in a clinical validation study with women at increased risk for chromosomal aneuploidy.[1-4] Performed By: #### 5 8410-2 #### [facility] CLIA [id number] [address] [place] [address] [place] Trisomy 13 risk Dosage of chromosome-specific cfDNA Ql (cfDNA) [Interp] Negative Normal [facility] Comment on above: Order Comment: Speci men Type: BLOOD SPECIMEN Ordering Facility: [facility] Address: [address] [place] [address] Performed By: #### 5 8410-2 #### [facility] CLIA [id number] [address] [place] [address] [place] [facility] Trisomy 18 risk Dosage of chromosome-specific cfDNA Ql (Plasma cell-free+WBC DNA) [Interp] Negative Normal [facility] Comment on above: Order Comment: Speci men Type: BLOOD SPECIMEN Ordering Facility: [facility] Address: [address] [place] [address] Performed By: #### 5 8410-2 #### [facility] CLIA [id number] [address] [place] [address] [place] CBC W Auto Differential pane l (Bld)on 10-30-2024 Basophils (Bld) [#/Vol] 10*3/uL Normal <0.11 [facility] Comment on above: Order Comment: Speci men Type: BLOOD SPECIMEN Ordering Facility: [facility] Address: [address] [place] [address] Performed By: #### 5 7021-8 #### [facility] CLIA [id number] [address] [place], [place] [address] [place] [address] [place] Basophils/100 WBC (Bld) 0.3 % Normal [facility] Comment on above: Order Comment: Speci men Type: BLOOD SPECIMEN Ordering Facility: [facility] Address: [address] [place] [address] Performed By: #### 5 7021-8 #### [facility] CLIA [id number] [address] [place] [address] [place] [facility] Differential cell count method Nom (Bld) Auto Normal [facility] Comment on above: Order Comment: Speci men Type: BLOOD SPECIMEN Ordering Facility: [facility] Address: [address] [place] [address] Performed By: #### 5 7021-8 #### [facility] CLIA [id number] [address] [place] [address] [place] Eosinophils (Bld) [#/Vol] 0.10 10*3/uL Normal <0.46 [facility] Comment on above: Order Comment: Speci men Type: BLOOD SPECIMEN Ordering Facility: [facility] Address: [address] [place] [address] Performed By: #### 5 7021-8 #### [facility] CLIA [id number] [address] [place] [address] [place] Eosinophils/100 WBC (Bld) 1.6 % Normal [facility] Comment on above: Order Comment: Speci men Type: BLOOD SPECIMEN Ordering Facility: [facility] Address: [address] [place] [address] Performed By: #### 5 7021-8 #### [facility] CLIA [id number] [address] [place] [address] [place] Erythrocyte distribution width (RBC) [Ratio] 13.1 % Normal 11.5-15.0 [facility] Comment on above: Order Comment: Speci men Type: BLOOD SPECIMEN Ordering Facility: [facility] Address: [address] [place] [address] Performed By: #### 5 7021-8 #### [facility] CLIA [id number] [address] [place] [address] [place] Hematocrit (Bld) [Volume fraction] 39.3 % Normal 36.0-46.0 [facility] Comment on above: Order Comment: Speci men Type: BLOOD SPECIMEN Ordering Facility: [facility] Address: [address] [place] [address] Performed By: #### 5 7021-8 #### [facility] CLIA [id number] [address] [place] [address] [place] Hemoglobin (Bld) [Mass/Vol] 13.5 g/dL Normal 11.5-15.5 [facility] Comment on above: Order Comment: Speci men Type: BLOOD SPECIMEN Ordering Facility: [facility] Address: [address] [place] [address] Performed By: #### 5 7021-8 #### [facility] CLIA [id number] [address] [place] [address] [place] Immature granulocytes (Bld) [#/Vol] 10*3/uL Normal <0.10 [facility] Comment on above: Order Comment: Speci men Type: BLOOD SPECIMEN Ordering Facility: [facility] Address: [address] [place] [address] Performed By: #### 5 7021-8 #### [facility] CLIA [id number] [address] [place] [address] [place] Immature granulocytes/100 WBC (Bld) 0.3 % Normal [facility] Comment on above: Order Comment: Speci men Type: BLOOD SPECIMEN Ordering Facility: [facility] Address: [address] [place] [address] Performed By: #### 5 7021-8 #### [facility] CLIA [id number] [address] [place] [address] [place] Lymphocytes (Bld) [#/Vol] 1.18 10*3/uL Normal 1.00-4.00 [facility] Comment on above: Order Comment: Speci men Type: BLOOD SPECIMEN Ordering Facility: [facility] Address: [address] [place] [address] Performed By: #### 5 7021-8 #### [facility] CLIA [id number] [address] [place] [address] [place] Lymphocytes/100 WBC (Bld) 19.0 % Normal [facility] Comment on above: Order Comment: Speci men Type: BLOOD SPECIMEN Ordering Facility: [facility] Address: [address] [place] [address] Performed By: #### 5 7021-8 #### [facility] CLIA [id number] [address] [place] [address] [place] MCH (RBC) [Entitic mass] 32.2 pg Normal 26.0-34.0 [facility] Comment on above: Order Comment: Speci men Type: BLOOD SPECIMEN Ordering Facility: [facility] Address: [address] [place] [address] Performed By: #### 5 7021-8 #### [facility] CLIA [id number] [address] [place] [address] [place] MCHC (RBC) [Mass/Vol] 34.4 g/dL Normal 30.5-36.0 [facility] Comment on above: Order Comment: Speci men Type: BLOOD SPECIMEN Ordering Facility: [facility] Address: [address] [place] [address] Performed By: #### 5 7021-8 #### [facility] CLIA [id number] [address] [place], [place] [address] [place] [address] [place] MCV (RBC) [Entitic vol] 93.8 fL Normal 80.0-100.0 [facility] Comment on above: Order Comment: Speci men Type: BLOOD SPECIMEN Ordering Facility: [facility] Address: [address] [place] [address] Performed By: #### 5 7021-8 #### [facility] CLIA [id number] [address] [place] Monocytes (Bld) [#/Vol] 0.30 10*3/uL Normal <0.87 [facility] Comment on above: Order Comment: Speci men Type: BLOOD SPECIMEN Ordering Facility: [facility] Address: [address] [place] [address] Performed By: #### 5 7021-8 #### [facility] CLIA [id number] [address] [place] [address] [facility] Monocytes/100 WBC (Bld) 4.8 % Normal [facility] Comment on above: Order Comment: Speci men Type: BLOOD SPECIMEN Ordering Facility: [facility] Address: [address] [place] [address] Performed By: #### 5 7021-8 #### [facility] CLIA [id number] [address] [place] [address] [place] Neutrophils (Bld) [#/Vol] 4.60 10*3/uL Normal 1.45-7.50 [facility] Comment on above: Order Comment: Speci men Type: BLOOD SPECIMEN Ordering Facility: [facility] Address: [address] [place] [address] Performed By: #### 5 7021-8 #### [facility] CLIA [id number] [address] [place] [address] [place] Neutrophils/100 WBC (Bld) 74.0 % Normal [facility] Comment on above: Order Comment: Speci men Type: BLOOD SPECIMEN Ordering Facility: [facility] Address: [address] [place] [address] Performed By: #### 5 7021-8 #### [facility] CLIA [id number] [address] [place] [address] [place] Nucleated RBC (Bld) [#/Vol] Normal [facility] Comment on above: Order Comment: Speci men Type: BLOOD SPECIMEN Ordering Facility: [facility] Address: [address] [place] [address] Performed By: #### 5 7021-8 #### [facility] CLIA [id number] [address] [place] [address] [place] Nucleated RBC/100 WBC (Bld) [Ratio] Normal [facility] Comment on above: Order Comment: Speci men Type: BLOOD SPECIMEN Ordering Facility: [facility] Address: [address] [place] [address] Performed By: #### 5 7021-8 #### [facility] CLIA [id number] [address] [place] [address] [place] Platelet mean volume (Bld) [Entitic vol] 11.0 fL Normal 9.0-12.7 [facility] Comment on above: Order Comment: Speci men Type: BLOOD SPECIMEN Ordering Facility: [facility] Address: [address] [place] [address] Performed By: #### 5 7021-8 #### [facility] CLIA [id number] [address] [place] [address] [place] Platelets (Bld) [#/Vol] 174 10*3/uL Normal 150-400 [facility] Comment on above: Order Comment: Speci men Type: BLOOD SPECIMEN Ordering Facility: [facility] Address: [address] [place] [address] Performed By: #### 5 7021-8 #### [facility] CLIA [id number] [address] [place] [address] [place] RBC (Bld) [#/Vol] 4.19 10*6/uL Normal 3.90-5.20 [facility] Comment on above: Order Comment: Speci men Type: BLOOD SPECIMEN Ordering Facility: [facility] Address: [address] [place] [address] Performed By: #### 5 7021-8 #### [facility] CLIA [id number] [address] [place] [address] [facility] WBC (Bld) [#/Vol] 6.22 10*3/uL Normal 3.70-11.00 [facility] Comment on above: Order Comment: Speci men Type: BLOOD SPECIMEN Ordering Facility: [facility] Address: [address] [place] [address] Performed By: #### 5 7021-8 #### [facility] CLIA [id number] [address] [place], [place] [address] [place] [address] OF [facility] HBV surface Ag Ser Qlon 06-0 HBV surface Ag Ql (S) Non-Reactive Normal Nonreactive [facility] Comment on above: Order Comment: Speci men Type: BLOOD SPECIMEN Ordering Facility: [facility] Address: [address] [place] [address] Performed By: #### 5 195-3, 90985-1 #### [facility] CLIA [id number] [address] OF [facility] HCV Ab Ser Qlon 10-30-2024 HCV Ab Ql (S) Non-Reactive Normal Nonreactive [facility] Comment on above: Order Comment: Speci men Type: BLOOD SPECIMEN Ordering Facility: [facility] Address: [address] [place] [address] Result Comment: The result suggests no evidence of active infection with Hepatitis C virus. Should recent infection be suspected, repeat testing may be considered 4-6 weeks after this draw. Performed By: #### 5 195-3, 60044-6 #### [facility] CLIA [id number] [address] OF [facility] HIV 1+2 Ab IA Qlon 5 HIV 1 and 2 Ab IA.rapid Nom (S/P/Bld) Normal [facility] Comment on above: Order Comment: Speci men Type: BLOOD SPECIMEN Ordering Facility: [facility] Address: [address] [place] [address] Result Comment: Test not indicated. Performed By: #### 5 195-3, 73759-2 #### [facility] CLIA [id number] [address] OF [facility] HIV 1+2 Ab+HIV1 p24 Ag IA Ql Non-Reactive Normal Nonreactive [facility] Comment on above: Order Comment: Speci men Type: BLOOD SPECIMEN Ordering Facility: [facility] Address: [address] [place] [address] Result Comment: [place] Rev. Code 3701.243(E): This information has been disclosed to you from confidential records protected from disclosure by state law. ???You shall make no further disclosure of this information without the specific, written, and informed release of the individual to whom it pertains or as otherwise permitted by state law. A general authorization for the release of medical or other information is not sufficient for the purpose of the release of HIV test results or diagnoses. Performed By: #### 5 195-3, 56669-6 #### [facility] CLIA [id number] [address] STATES OF [facility] HIV immunoassay testing algorithm interpretation (S/P/Bld) [Interp] Normal [facility] Comment on above: Order Comment: Speci men Type: BLOOD SPECIMEN Ordering Facility: [facility] Address: [address] [place] [address] Result Comment: No e vidence of HIV-1 or HIV-2 infection. Should recent infection be suspected, repeat testing may be considered 2-3 weeks after this draw. Performed By: #### 5 195-3, 69463-1 #### [facility] CLIA [id number] [address] HbA1c (Bld)on 10-30-2024 Average glucose Estimated from glycated hemoglobin (Bld) [Mass/Vol] 85 mg/dL Normal [facility] Comment on above: Order Comment: Speci men Type: BLOOD SPECIMEN Ordering Facility: [facility] Address: [address] [place] [address] Result Comment: eAG: (Estimated average glucose) is a calculated value from HgbA1c and is event marketing representative of the average blood glucose level in the last 2-3 month period. Performed By: #### 5 195-3, 85495-3 #### [facility] CLIA [id number] [address] HbA1c (Bld) [Mass fraction] 4.6 % Normal 4.3-5.6 [facility] Comment on above: Order Comment: Speci men Type: BLOOD SPECIMEN Ordering Facility: [facility] Address: [address] [place] [address] Result Comment: Amer [place] Diabetes Association guidelines indicate that patients with HgbA1c in the range 5.7-6.4% are at increased risk for development of diabetes, and intervention by lifestyle modification may be beneficial. HgbA1c greater or equal to 6.5% is considered diagnostic of diabetes. Performed By: #### 5 195-3, 01671-9 #### [facility] CLIA [id number] [address] RUBELLA IGG ANTIBODYon 10-30 RUBELLA IGG AB, QUAL Positive Normal Positive [facility] Comment on above: Order Comment: Speci men Type: BLOOD SPECIMEN Ordering Facility: [facility] Address: [address], [place] [address] Result Comment: The result suggests recent or past exposure to Rubella virus or history of Rubella vaccination. Positive result may also be seen due to presence of passively-transferred antibodies. Please correlate with patient's history. The following results were obtained with the [employer] Rubella IgG assay. Results from assays of other manufacturers cannot be used interchangeably. Performed By: #### 5 195-3, 21297-3 #### [facility] CLIA [id number] 1 [place] [address] [place] Reagin and Treponema pallidu m IgG and IgM [Interp]on 10-30-2024 T. pallidum IgG+IgM IA Ql (S) Non-Reactive Normal Nonreactive [facility] Comment on above: Order Comment: Speci men Type: BLOOD SPECIMEN Ordering Facility: [facility] Address: [address] [place] [address] Performed By: #### 7 3752-8 #### [facility] CLIA [id number] [address] [place] [address] [place] Reagin+T pallidum IgG+IgM Se rPl-Impon 10-30-2024 Reagin and Treponema pallidum IgG and IgM [Interp] Cannot exclude recent Treponemal infection if specimen collected within 7-10 days after appearance of suspect lesions or 2-3 weeks after an exposure. Clinical correlation is required. [facility] Comment on above: Order Comment: Speci men Type: BLOOD SPECIMEN Ordering Facility: [facility] Address: [address] [place] [address] Performed By: #### 7 3752-8 #### [facility] CLIA [id number] [address] [place] [address] [place] TYPE + SCREEN PRENATALon ABO O [facility] Comment on above: Order Comment: Speci men Type: BLOOD SPECIMEN Ordering Facility: [facility] Address: [address] [place] [address] Performed By: #### T SPN #### [facility] CLIA [id number] [address] Rh Nom (Bld) Positive Normal [facility] Comment on above: Order Comment: Speci men Type: BLOOD SPECIMEN Ordering Facility: [facility] Address: [address] [place] [address] Performed By: #### T SPN #### [facility] CLIA [id number] [address] TYPE AND SCREEN EXPIRATION 11/02/2024 23:59 Normal [facility] Comment on above: Order Comment: Speci men Type: BLOOD SPECIMEN Ordering Facility: [facility] Address: [address] [place] [place] [address] Performed By: #### T SPN #### [facility] CLIA [id number] [address] LEVETIRACETAMon 10-26-2024 levETIRAcetam [Mass/Vol] 9.5 ug/mL Low 12.0 - 46.0 ug/mL [facility] Comment on above: This test is not jewel table for patients receiving treatment with the drug brivaracetam (Briviact). The drug causes an interference that may lead to falsely elevated levetiracetam results. Reference ranges and high/low indicator flags are provided as general guidelines only. The treating physician must determine appropriate target levels/dosing based on the specific clinical situation. This test was developed, and its performance characteristics determined by the [facility] Department of Pathology and Laboratory Medicine. It has not been cleared or approved by the FDA. The [facility] Department of Pathology and Laboratory Medicine is regulated under CLIA as qualified to perform high-complexity testing. This test is used for clinical purposes. It should not be regarded as investigational or for research. lamoTRIgine SerPl-mCncon lamoTRIgine [Mass/Vol] 4.6 ug/mL Normal 1.0-13.0 [facility] Comment on above: Order Comment: Speci men Type: BLOOD SPECIMEN Ordering Facility: [facility] Address: [address] [place] [id number] Result Comment: This test was developed, and its performance characteristics determined by the [facility] Department of Pathology and Laboratory Medicine. It has not been cleared or approved by the FDA. The [facility] Department of Pathology and Laboratory Medicine is regulated under CLIA as qualified to perform high-complexity testing. This test is used for clinical purposes. It should not be regarded as investigational or for research. Performed By: #### 6 948-4 #### [facility] CLIA [id number] [address] [place] [address] [place] levETIRAcetam SerPl-mCncon 0 10-26-2024 levETIRAcetam [Mass/Vol] 9.5 ug/mL Low 12.0-46.0 [facility] Comment on above: Order Comment: Speci men Type: BLOOD SPECIMEN Ordering Facility: [facility] Address: [address] [place] [address] Result Comment: This test is not suitable for patients receiving treatment with the drug brivaracetam (Briviact). The drug causes an interference that may lead to falsely elevated levetiracetam results. Reference ranges and high/low indicator flags are provided as general guidelines only. The treating physician must determine appropriate target levels/dosing based on the specific clinical situation. This test was developed, and its performance characteristics determined by the [facility] Department of Pathology and Laboratory Medicine. It has not been cleared or approved by the FDA. The [facility] Department of Pathology and Laboratory Medicine is regulated under CLIA as qualified to perform high-complexity testing. This test is used for clinical purposes. It should not be regarded as investigational or for research. Performed By: #### 3 0471-7 #### [facility] CLIA [id number] [address] [place] [address] [place] levETIRAcetam [Mass/Vol]on 0 10-26-2024 Interpretation and review of laboratory results Abnormal [facility] CNCOon 10-05-2024 CNCO Letter Text Normal [facility] CNPNon 10-05-2024 CNPN Telephone (OBGYWM) SENSARAH PINEDOCassy Nieto ([id number]) 1995 F Date Time Provider Department 10/05/24 MATTSARIKA BUZZ GALA During your visit today, we recorded the following information about you: Mery Toribio RN 10/05/2024 12:12 PM Signed 8w6d Patient called stating that she had a speck of spotting that happened 30 min ago. Went to the bathroom and hasn't happened again. Asked patient to elaborate. States it was a brown dot in her underwear. Inquired if patient is having any pain or cramping. Patient states that she has a feeling of fullness. No cramping. Reassurance given. Recommended patient call the office if she has bright red bleeding or increased pain. KAILASH Shirley Emily, APRN.CNP 10/05/2024 12:18 PM Signed Agree with plan Catie Alejandro APRN.CEE Allergies As of Date: 10/05/2024 Noted Allergy Reaction ALMOND 08/07/2019 12 - Shortness of Breath Comments: Pt with EOE BARLEY 04/18/2018 12 - Shortness of Breath Comments: Patient diagnosed with Eosinophilic esophagitis SINGLETARY 07/03/2019 12 - Shortness of Breath BEEF CONTAINING PRODUCTS 04/18/2018 12 - Shortness of Breath Comments: Patient diagnosed with EOE CABBAGE 04/18/2018 12 - Shortness of Breath Comments: Patient diagnosed with EOE CHICKEN DERIVED 07/03/2019 12 - Shortness of Breath DAIRY AID (LACTASE) 04/18/2018 12 - Shortness of Breath Comments: Patient diagnosed with EOE EGG 04/18/2018 12 - Shortness of Breath Comments: Patient diagnosed with EOE GLUTEN 07/03/2019 12 - Shortness of Breath OATS 04/18/2018 12 - Shortness of Breath Comments: Patient diagnosed with EOE PEANUTS 04/18/2018 12 - Shortness of Breath Comments: Patient diagnosed with EOE All nuts except cashews PEAS 07/03/2019 12 - Shortness of Breath SOY 04/18/2018 12 - Shortness of Breath Comments: Patient diagnosed with EOE TOMATOES 04/18/2018 12 - Shortness of Breath Comments: Patient diagnosed with EOE WHEAT, WHEAT GERM 04/18/2018 12 - Shortness of Breath Comments: Patient diagnosed with EOE Date Reviewed: 10/02/2024 Reviewed by: Carmencita Lowe LPN - Fully Assessed Reason for Visit: Question (OB Question) [1667] Prescriptions as of 10/05/2024 - aspirin, enteric coated (ECOTRIN LOW STRENGTH) 81 mg EC tablet Take 1 tablet by mouth once daily. - pantoprazole DR (PROTONIX) 40 mg tablet Take 40 mg by mouth once daily. - vit/iron fum/folic ac ( 1 + 1 ORAL) Take by mouth once daily. - lamoTRIgine ER (LAMICTAL XR) 100 mg 24 hr tablet Take 1 tablet by mouth two times a day. Take with 50 mg tablets for total of 150 mg twice daily - lamoTRIgine ER (LAMICTAL XR) 50 mg 24 hr tablet Take 1 tablet by mouth two times a day. Take with 100 mg tablets for total of 150 mg twice daily - levETIRAcetam (KEPPRA) 1,000 mg tablet Take 1 tablet by mouth two times a day. - folic acid 1 mg tablet Take 2 tablets by mouth once daily. 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 trachomatis+N. gonorrhoea e DNA ARIELLE+probe Ql (Unsp spec)on 10-02-2024 C. trachomatis rRNA ARIELLE+probe Ql (Unsp spec) Not detected Normal Not detected [facility] Comment on above: Order Comment: Speci men Type: BLOOD SPECIMEN Order[facility] Address: [address] [place] [address] Performed By: #### 5 8410-2 #### [facility] CLIA [id number] [address] [place] [address] [place] N. gonorrhoeae rRNA ARIELLE+probe Ql (Unsp spec) Not detected Normal Not detected [facility] Comment on above: Order Comment: Speci men Type: BLOOD SPECIMEN Ordering Facility: [facility] Address: [address] [place] [address] Performed By: #### 5 8410-2 #### [facility] CLIA [id number] [address] [place] [address] [place] HIGH RISK HUMAN PAPILLOMA AI (HPV), PCR FOR DETECTION AND GENOTYPINGon 10-02-2024 HPV 16 Ag Ql (Unsp spec) Not detected Normal Not detected [facility] Comment on above: Order Comment: Speci men Type: BLOOD SPECIMEN Order[facility] Facility: [facility] Address: [address] [place] [address] Performed By: #### 5 8410-2 #### [facility] CLIA [id number] [address] [place] [address] [place] HPV 18 Ag Ql (Unsp spec) Not detected Normal Not detected [facility] Comment on above: Order Comment: Speci men Type: BLOOD SPECIMEN Ordering Facility: [facility] Address: [address] [place] [address] Performed By: #### 5 8410-2 #### [facility] CLIA [id number] [address] [place] [address] [place] HPV 31+33+35+39+45+51+52+5 6+58+59+66+68 DNA ARIELLE+probe Ql (Cvx) Not detected Normal Not detected [facility] Comment on above: Order Comment: Speci men Type: BLOOD SPECIMEN Ordering Facility: [facility] Address: [address] [place] [address] Result Comment: High Risk HPV Other Type includes HPV types 31, 33, 35, 39, 45, 51, 52, 56, 58, 59, 66 and 68. Performed By: #### 5 8410-2 #### [facility] CLIA [id number] [address] [place] [address] [place] PAP TESTon 10-02-2024 ADEQUACY Normal [facility] Comment on above: Order Comment: Speci men Type: FLUID SPECIMENOrdering Facility: [facility] Address: [address] [place] [address] Result Comment: Sati sfactory for interpretation. No endocervical component Performed By: #### L [id number] ####[facility] [id number] [place] [address] [place] CASE REPORT Normal [facility] Comment on above: Order Comment: Speci men Type: FLUID SPECIMENOrdering Facility: [facility] Address: [address] [place] [address] Result Comment: Gyne cologic Cytology Report Case: [id number] Authorizing Provider: Tika Pham APRN.[employer] Collected: 10/02/2024 03:21 PM Ordering Location: OB/Gynecology Received: 10/02/2024 03:56 PM First Screen: Catie Anderson, [place], ASCP Rescreen: Libia Gonzales, CT, ASCP Specimen: Pap Test, ThinPrep, Cervix Performed By: #### L [id number] ####[facility] [id number] [place] [address] [place] CLINICAL HISTORY, CYTOLOGY, PMP Routine Exam Normal [facility] Comment on above: Order Comment: Speci men Type: FLUID SPECIMENOrdering Facility: [facility] Address: [address] [place] [address] Performed By: #### L [id number] ####[facility] [id number] [place] [id number] [place] FINAL PERFORMING LAB Normal [facility] Comment on above: Order Comment: Speci men Type: FLUID SPECIMENOrdering Facility: [facility] Address: [address] [place] [address] Result Comment: Tech nical component, contracts attorney screening performed at: [facility], [address] [place] [address] [place] [address] CLIA: [id number] Diagnostic interpretation performed at: [facility], [address] [place] [address] CLIA# [id number] Surveillance Agent: Rolando Casas MD Performed By: #### L [id number] ####[facility] [id number] [place] [address] [place] INTERPRETATION, CYTOLOGY, PMP Normal [facility] Comment on above: Order Comment: Speci men Type: FLUID SPECIMENOrdering Facility: [facility] Address: [address] [place] [address] Result Comment: Nega tive for intraepithelial lesion or malignancy. at 0953 EDT Performed By: #### L [id number] ####[facility] LABCLIA [id number] [place] [id number] [place] LMP 08/04/2024 Normal [facility] Comment on above: Order Comment: Speci men Type: FLUID SPECIMENOrdering Facility: [facility] Address: [address] [place] [address] Performed By: #### L [id number] ####[facility] LABCLIA [id number] [place] [id number] [place] PAP DISCLAIMER COMMENT The Pap Smear is a screening test for cervical cancer. False negative results occur with all screening tests, emphasizing the need for rescreening at recommended intervals, and clinical correlation. Normal [facility] Comment on above: Order Comment: Speci men Type: FLUID SPECIMENOrdering Facility: [facility] Address: [address] [place] [address] Performed By: #### L [id number] ####[facility] LABCLIA [id number] [address] PAP ASSISTANT SALES DIRECTOR COMMENT This specimen has be en analyzed by the ThinPrep Imaging System, an automated imaging and review system, which assists the laboratory in evaluating cells on ThinPrep Pap tests. Following automated imaging, selected razo from every slide are reviewed by a contracts attorney. Normal [facility] Comment on above: Order Comment: Speci men Type: FLUID SPECIMENOrdering Facility: [facility] Address: [address] [place] [address] Performed By: #### L [id number] ####[facility] LABCLIA [id number] [address] OF [place] POC DIRECTOR ATHLETIC ULTRASOUNDon 10-03-19 Indication Confirmation of intrauterine . Confirmation of cardiac activity. Viability. Estimation of gestational age Impression cardiac activity is visualized, CRL is appropriate for clinical dates, corresponding to MARIA T 05/11/25 Recommendations Follow up for 1st Trimester Anatomy with Nuchal Translucency as clinically indicated if desired. Method Transvaginal ultrasound examination. View: Adequate visualization Barron . Number of embryos: 1 Dating LMP on: 08/04/2024 GA by LMP 8 w + 3 d MARIA T by LMP: 05/11/2025 Ultrasound examination on: 10/02/2024 GA by U/S based upon: CRL GA by U/S 7 w + 4 d MARIA T by U/S: 05/17/2025 Assigned: based on the LMP, selected on 10/02/2024 Assigned GA 8 w + 3 d Assigned MARIA Biometry Standard FHR 166 bpm CRL 13.1 mm 7w 4d <1% Hadlock Assessment Gestational sac: visualized Location: intrauterine Yolk sac: visualized Embryo: visualized CRL 13.1 mm 7w 4d <1% Hadlock Cardiac activity: present FHR 166 bpm General Evaluation Cardiac activity present. FHR 166 bpm Performed By: Tika Pham CNP Read By: Tika Pham CNP MATERNAL MEDICINE [facility] Radiology Study observation (narrative) [facility] TRICHOMONAS VAGINALIS NAATon 10-02-2024 T. vaginalis DNA ARIELLE+probe Ql (Unsp spec) Not detected Normal Not detected [facility] Comment on above: Order Comment: Speci men Type: BLOOD SPECIMEN [facility] Address: [address] [place] [address] Performed By: #### 5 8410-2 #### [facility] CLIA [id number] [address] [place] [address] [place] B-HCG SerPl-aCncon 5 HCG.beta subunit Qn 7222.0 m[IU]/mL High <5.0 [facility] Comment on above: Order Comment: Speci men Type: BLOOD SPECIMEN [facility] Address: [address] [place] [address] Result Comment: JONA TITATIVE HCG NORMAL RANGES Weeks of Gestation (Weeks Since LMP) 3 Weeks (5.8-71.2 mIU/mL) 4 Weeks (9.5-750 mIU/mL) 5 Weeks (217-7138 mIU/mL) 6 Weeks (158-06818 mIU/mL) 7 Weeks (3697-922359 mIU/mL) 8 Weeks (98511-661093 mIU/mL) 9 Weeks (23265-204234 mIU/mL) 10 Weeks (64221-693152 mIU/mL) 12 Weeks (54499-919159 mIU/mL) Referenced to 4th IS of [facility] Performed By: #### 2 1198-7 #### [facility] CLIA [id number] [address] [place] [address] [place] B-HCG SerPl-aCncon 5 HCG.beta subunit Qn 2968.0 m[IU]/mL High <5.0 [facility] Comment on above: Order Comment: Speci men Type: BLOOD SPECIMENOrdering Facility: [facility] Address: [address] [place] [address] Result Comment: JONA TITATIVE HCG NORMAL RANGES Weeks of Gestation (Weeks Since LMP) 3 Weeks (5.8-71.2 mIU/mL) 4 Weeks (9.5-750 mIU/mL) 5 Weeks (217-7138 mIU/mL) 6 Weeks (158-31546 mIU/mL) 7 Weeks (3697-211070 mIU/mL) 8 Weeks (50611-163762 mIU/mL) 9 Weeks (35401-298551 mIU/mL) 10 Weeks (12745-873945 mIU/mL) 12 Weeks (50924-048017 mIU/mL) Referenced to 4th IS of [facility] Performed By: #### 2 1198-7 ####[facility] LABCLIA [id number] [address] OF [facility] CNOVon 09-11-2024 CNOV Office Visit (OBGYWM ) LYNSEY JOHNSON ([id number]) 1995 F Date Time Provider Department 09/11/24 9:30 AM ROMELIA SURESH During your visit today, we recorded the following information about you: Romelia Suresh APRN.CNM 09/13/2024 7:50 AM Signed See previous progress note. Romelia Suresh APRN.CNM Referring Provider: SELF [200] Allergies As of Date: 09/11/2024 Noted Allergy Reaction ALMOND 08/07/2019 12 - Shortness of Breath Comments: Pt with EOE BARLEY 04/18/2018 12 - Shortness of Breath Comments: Patient diagnosed with Eosinophilic esophagitis SINGLETARY 07/03/2019 12 - Shortness of Breath BEEF CONTAINING PRODUCTS 04/18/2018 12 - Shortness of Breath Comments: Patient diagnosed with EOE CABBAGE 04/18/2018 12 - Shortness of Breath Comments: Patient diagnosed with EOE CHICKEN DERIVED 07/03/2019 12 - Shortness of Breath DAIRY AID (LACTASE) 04/18/2018 12 - Shortness of Breath Comments: Patient diagnosed with EOE EGG 04/18/2018 12 - Shortness of Breath Comments: Patient diagnosed with EOE GLUTEN 07/03/2019 12 - Shortness of Breath OATS 04/18/2018 12 - Shortness of Breath Comments: Patient diagnosed with EOE PEANUTS 04/18/2018 12 - Shortness of Breath Comments: Patient diagnosed with EOE All nuts except cashews PEAS 07/03/2019 12 - Shortness of Breath SOY 04/18/2018 12 - Shortness of Breath Comments: Patient diagnosed with EOE TOMATOES 04/18/2018 12 - Shortness of Breath Comments: Patient diagnosed with EOE WHEAT, WHEAT GERM 04/18/2018 12 - Shortness of Breath Comments: Patient diagnosed with EOE Date Reviewed: 07/10/2024 Reviewed by: Deyanira Capps MA - Fully Assessed Primary Visit Diagnosis:Encounter for gynecological examination with abnormal finding [Z01.411] Prescriptions as of 09/13/2024 - clonazePAM orally disintegrating (KLONOPIN WAFER) 0.5 mg disintegrating tablet Take one tablet by mouth as needed at the onset of a seizure. Do not exceed more than 2 doses in 24 hours. - lamoTRIgine ER (LAMICTAL XR) 100 mg 24 hr tablet Take 1 tablet by mouth two times a day. Take with 50 mg tablets for total of 150 mg twice daily - lamoTRIgine ER (LAMICTAL XR) 50 mg 24 hr tablet Take 1 tablet by mouth two times a day. Take with 100 mg tablets for total of 150 mg twice daily - levETIRAcetam (KEPPRA) 1,000 mg tablet Take 1 tablet by mouth two times a day. - folic acid 1 mg tablet Take 2 tablets by mouth once daily. 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 Patient reports that she began bleeding again on 08/29/2024 and had bleeding X 5 days that was like a normal menses then has had brownish colored spotting since. Patient assumed the bleeding on 08/29 was her menses but took 3 tests d/t the prolonged brownish spotting and tests came back positive. Patient denies cramping, no c/o pelvic or lower back pain. first . Does patient need a virtual appointment to have hcg quants ordered? Mery Turner MD 09/08/2024 2:48 PM Signed Yes. I believe that is how they would like to do it for those that haven't had a recent appointment Marjorie Barreto RN 09/08/2024 2:54 PM Signed Patient notified and voiced understanding. Virtual visit scheduled. Bleeding precautions reviewed. Marjorie Barreto RN Allergies As of Date: 09/08/2024 Noted Allergy Reaction ALMOND 08/07/2019 12 - Shortness of Breath Comments: Pt with EOE BARLEY 04/18/2018 12 - Shortness of Breath Comments: Patient diagnosed with Eosinophilic esophagitis SINGLETARY 07/03/2019 12 - Shortness of Breath BEEF CONTAINING PRODUCTS 04/18/2018 12 - Shortness of Breath Comments: Patient diagnosed with EOE CABBAGE 04/18/2018 12 - Shortness of Breath Comments: Patient diagnosed with EOE CHICKEN DERIVED 07/03/2019 12 - Shortness of Breath DAIRY AID (LACTASE) 04/18/2018 12 - Shortness of Breath Comments: Patient diagnosed with EOE EGG 04/18/2018 12 - Shortness of Breath Comments: Patient diagnosed with EOE GLUTEN 07/03/2019 12 - Shortness of Breath OATS 04/18/2018 12 - Shortness of Breath Comments: Patient diagnosed with EOE PEANUTS 04/18/2018 12 - Shortness of Breath Comments: Patient diagnosed with EOE All nuts except cashews PEAS 07/03/2019 12 - Shortness of Breath SOY 04/18/2018 12 - Shortness of Breath Comments: Patient diagnosed with EOE TOMATOES 04/18/2018 12 - Shortness of Breath Comments: Patient diagnosed with EOE WHEAT, WHEAT GERM 04/18/2018 12 - Shortness of Breath Comments: Patient diagnosed with EOE Date Reviewed: 07/10/2024 Reviewed by: Deyanira Capps MA - Fully Assessed Reason for Visit: Care [86] Cmt: + test Prescriptions as of 09/08/2024 - Brompheniramine-Pseudo eph-DM (BROMFED DM) 2-30-10 mg/5 mL syrup Take 5 mL by mouth four times a day as needed. - clonazePAM orally disintegrating (KLONOPIN WAFER) 0.5 mg disintegrating tablet Take one tablet by mouth as needed at the onset of a seizure. Do not exceed more than 2 doses in 24 hours. - lamoTRIgine ER (LAMICTAL XR) 100 mg 24 hr tablet Take 1 tablet by mouth two times a day. Take with 50 mg tablets for total of 150 mg twice daily - lamoTRIgine ER (LAMICTAL XR) 50 mg 24 hr tablet Take 1 tablet by mouth two times a day. Take with 100 mg tablets for total of 150 mg twice daily - levETIRAcetam (KEPPRA) 1,000 mg tablet Take 1 tablet by mouth two times a day. - folic acid 1 mg tablet Take 2 tablets by mouth once daily. 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] 04/03/2022 Encounter Status:Closed by MARJORIE BARRETO on 09/08/24 [facility] CNOVyohannes 07-10-2024 CNOV Office Visit (UCWSTR ) LYNSEY JOHNSON ([id number]) 1995 F Date Time Provider Department 07/10/24 3:15 PM KRYSTA SANCHES [facility] During your visit today, we recorded the following information about you: Temperature Pulse Respiration Blood pressure 101.3 degrees 115/minute 20/minute 110/82 Weight 51.8 kg Krysta Sanches APRN.COLLEGE OR UNIVERSITY FACULTY MEMBER 07/10/2024 3:55 PM Signed CC: Patient presents with: Cough: CYR, sinus, fever x 3 weeks HPI: Lynsey Johnson is a 29 year old female who presents to the office with complaint of cough, nonproductive and sinus symptoms for 5 days. Symptoms are staying the same. Associated symptoms includes sore throat. Denies nausea, vomiting , and diarrhea. Treatments tried include nothing so far. with no relief of symptoms. Sick contacts: unknown. History of asthma, frequent episodes of bronchitis, chronic bronchitis, bronchiectasis or COPD: No Smoker: No Seasonal/environmental allergies: No The ROS is otherwise negative. The patient's pmh, medications, allergies, and past visits are reviewed. PHYSICAL EXAM: BP 110/82 Pulse 115 Temp (!) 38.5 ?C (101.3 ?F) Resp 20 Wt 51.8 kg (114 lb 3.2 oz) LMP 10/02/2015 SpO2 97% BMI 20.89 kg/m? General appearance: alert, cooperative, pleasant, in no acute distress Head: Normocephalic Eyes: EOM's intact, conjunctiva pink and moist, no icterus, sclera white, non-injected Ears: Right ear: External ear/canal- Normal, TM - clear with good landmarks. Left ear: External ear/canal- Normal, TM - clear with good landmarks Oropharynx:mild erythema, without exudates present Heart: Negative. RRR without obvious murmur, gallop, or rubs. No ectopy. Lungs: clear to auscultation, without rales or wheeze, good air exchange PAST MEDICAL HISTORY Diagnosis Date Epilepsy (HCC) Esophageal spasm Occurs d/t food allergies. Had EGD with balooning 2017. Narcolepsy PAST SURGICAL HISTORY Procedure Laterality Date INSERTION OF IUD 05/29/2019 PAST SURGICAL HISTORY OF 2018 Upper GI Surgery /BALOONING TONSILLECTOMY HX ALLERGIES [place]; Barley; [place]; Beef Containing Products; Cabbage; Chicken Derived; Dairy Aid [Lactase]; Egg; Gluten; Oats; Peanuts; Peas; Soy; Tomatoes; and Wheat, Wheat Germ MEDICATIONS clonazePAM orally disintegrating (KLONOPIN WAFER) 0.5 mg disintegrating tablet Take one tablet by mouth as needed at the onset of a seizure. Do not exceed more than 2 doses in 24 hours. lamoTRIgine ER (LAMICTAL XR) 100 mg 24 hr tablet Take 1 tablet by mouth two times a day. Take with 50 mg tablets for total of 150 mg twice daily lamoTRIgine ER (LAMICTAL XR) 50 mg 24 hr tablet Take 1 tablet by mouth two times a day. Take with 100 mg tablets for total of 150 mg twice daily levETIRAcetam (KEPPRA) 1,000 mg tablet Take 1 tablet by mouth two times a day. folic acid 1 mg tablet Take 2 tablets by mouth once daily. No family history on file. Social History Tobacco Use Smoking status: Never Smokeless tobacco: Never Vaping Use Vaping status: Some Days Substances: CBD Substance Use Topics Alcohol use: Yes Drug use: Yes Types: Marijuana Comment: Delta 8 ASSESSMENT/PLAN: 1. Sore throat - ICD9: 462, ICD10: J02.9 (primary diagnosis) - STREP A MOLECULAR (POC) - neg 2. Acute cough - ICD9: 786.2, ICD10: R05.1 - XR CHEST 2V FRONTAL/LAT * * * * Physician Interpretation * * * * EXAMINATION: CHEST RADIOGRAPH (2 VIEW FRONTAL AND LATERAL) CLINICAL HISTORY: Acute cough MQ: XC2_6 EXAM DATE/TIME: 07/10/2024 3:47 PM COMPARISON: Chest x-ray dated 06/14/2023 RESULT: Lines, tubes, and devices: None. Lungs and pleura: Focal opacity in the medial right lower lobe. No pleural effusion. No pneumothorax. Cardiomediastinal silhouette: Normal cardiomediastinal silhouette. Bones and soft tissues: Stable mild dextrocurvature. Mild degenerative changes. IMPRESSION IMPRESSION: Focal opacity in the medial right lower lobe suspect for pneumonia in the appropriate clinical setting Diving Instructor: DEANNA Transcribe Date/Time: Jul 10 2024 3:47P Dictated by : DEO DELEON MD Doxy and bromfed Prescription instructions reviewed with patient as applicable. Potential red flag symptoms discussed with the patient. Reviewed appropriate action plan to take if red flag symptoms occur. Patient agreeable to treatment plan. Krysta Sanches APRN.COLLEGE OR UNIVERSITY FACULTY MEMBER Allergies As of Date: 07/10/2024 Noted Allergy Reaction ALMOND 08/07/2019 12 - Shortness of Breath Comments: Pt with EOE BARLEY 04/18/2018 12 - Shortness of Breath Comments: Patient diagnosed with Eosinophilic esophagitis SINGLETARY 07/03/2019 12 - Shortness of Breath BEEF CONTAINING PRODUCTS 04/18/2018 12 - Shortness of Breath Comments: Patient diagnosed with EOE CABBAGE 04/18/2018 12 - Shortness of Breath Comments: Patient diagnosed with EOE CHICKEN DERIVED 07/03/2019 12 - Shortness of Marlen (more content not included)... Normal [facility] STREP A MOLECULAR (POC)on Procedural Control Valid [facility] Strep A (POCT) Negative Negative [facility] XR CHEST 2V FRONTAL/LATon XR CHEST 2V FRONTAL/LAT * * *Final Report* * * DATE OF EXAM: Jul 10 2024 3:47PM WOX [id number] - XR CHEST 2V FRONTAL/LAT / PROCEDURE REASON: Acute cough * * * * Physician Interpretation * * * * EXAMINATION: CHEST RADIOGRAPH (2 VIEW FRONTAL and LATERAL) CLINICAL HISTORY: Acute cough MQ: XC2_6 EXAM DATE/TIME: 07/10/2024 3:47 PM COMPARISON: Chest x-ray dated 06/14/2023 RESULT: Lines, tubes, and devices: None. Lungs and pleura: Focal opacity in the medial right lower lobe. No pleural effusion. No pneumothorax. Cardiomediastinal silhouette: Normal cardiomediastinal silhouette. Bones and soft tissues: Stable mild dextrocurvature. Mild degenerative changes. IMPRESSION: Focal opacity in the medial right lower lobe suspect for pneumonia in the appropriate clinical setting Diving Instructor: DEANNA Transcribe Date/Time: Jul 10 2024 3:47P Dictated by : DEO DELEON MD This examination was interpreted and the report reviewed and electronically signed by: DEO DELEON MD on Jul 10 2024 3:48PM EST [id number] Normal [facility] XR Chest PA and Lateralon IMPRESSION: Focal opacity in the medial right lower lobe suspect for pneumonia in the appropriate clinical setting Diving Instructor: [facility] Transcribe Date/Time: Jul 10 2024 3:47P Dictated by : DEO DELEON MD This examination was interpreted and the report reviewed and electronically signed by: DEO DELEON MD on Jul 10 2024 3:48PM EST DIVISION OF RADIOLOGY * * *Final Report* * * DATE OF EXAM: Jul 10 2024 3:47PM WOX 5291 - XR CHEST 2V FRONTAL/LAT / PROCEDURE REASON: Acute cough * * * * Physician Interpretation * * * * EXAMINATION: CHEST RADIOGRAPH (2 VIEW FRONTAL & LATERAL) CLINICAL HISTORY: Acute cough MQ: XC2_6 EXAM DATE/TIME: 07/10/2024 3:47 PM COMPARISON: Chest x-ray dated 06/14/2023 RESULT: Lines, tubes, and devices: None. Lungs and pleura: Focal opacity in the medial right lower lobe. No pleural effusion. No pneumothorax. Cardiomediastinal silhouette: Normal cardiomediastinal silhouette. Bones and soft tissues: Stable mild dextrocurvature. Mild degenerative changes. DIVISION OF RADIOLOGY Provider, [facility] - 07/10/2024 * * *Final Report* * * DATE OF EXAM: Jul 10 2024 3:47PM WOX 5291 - XR CHEST 2V FRONTAL/LAT / PROCEDURE REASON: Acute cough * * * * Physician Interpretation * * * * EXAMINATION: CHEST RADIOGRAPH (2 VIEW FRONTAL & LATERAL) CLINICAL HISTORY: Acute cough MQ: XC2_6 EXAM DATE/TIME: 07/10/2024 3:47 PM COMPARISON: Chest x-ray dated 06/14/2023 RESULT: Lines, tubes, and devices: None. Lungs and pleura: Focal opacity in the medial right lower lobe. No pleural effusion. No pneumothorax. Cardiomediastinal silhouette: Normal cardiomediastinal silhouette. Bones and soft tissues: Stable mild dextrocurvature. Mild degenerative changes. IMPRESSION IMPRESSION: Focal opacity in the medial right lower lobe suspect for pneumonia in the appropriate clinical setting Diving Instructor: PSCTiff Transcribe Date/Time: Jul 10 2024 3:47P Dictated by : DEO DELEON MD This examination was interpreted and the report reviewed and electronically signed by: DEO DELEON MD on Jul 10 2024 3:48PM EST [facility] Radiology Study observation (narrative) [facility] XR Chest PA and LateralOrder ed By: [facility] Provider on 07-10-2024 [facility] LAMOTRIGINEOrdered By: Crow Metzger on 11-04-2023 lamoTRIgine [Mass/Vol] 9.0 ug/mL 1.0 - 13.0 ug/mL [facility] Comment on above: This test was develo ped and its performance characteristics determined by [facility] [place] ([facility] It has not been cleared or approved by the FDA. [facility] is regulated under CLIA as qualified to perform high-complexity testing. This test is used for clinical purposes. It should not be regarded as investigational or for research. lamoTRIgine [Mass/Vol]Ordere d By: Crow Metzger on 11-04-2023 Interpretation and review of laboratory results Normal [facility] LEVETIRACETAMon 11-02-2023 levETIRAcetam [Mass/Vol] 41.6 ug/mL 12.0 - 46.0 ug/mL [facility] Comment on above: This test is not jewel table for patients receiving treatment with the drug brivaracetam (Briviact). The drug causes an interference that may lead to falsely elevated levetiracetam results. Reference ranges and high/low indicator flags are provided as general guidelines only. The treating physician must determine appropriate target levels/dosing based on the specific clinical situation. This test was developed and its performance characteristics determined by [facility] Pathology and Laboratory Medicine [place] ([facility]). It has not been cleared or approved by the FDA. [facility] is regulated under CLIA as qualified to perform high-complexity testing. This test is used for clinical purposes. It should not be regarded as investigational or for research. levETIRAcetam [Mass/Vol]on 0 11-02-2023 Interpretation and review of laboratory results Normal [facility] ANES POSTPROC EVALon 024 ANES POSTPROC EVAL HNO ID: [id number] Author: BASSAM DAVILA MD Service: Anesthesiology Author Type: Anesthesiologist Type: Anesthesia Postprocedure Evaluation Filed: 06/14/2023 16:43 Note Text: POST ANESTHESIA EVALUATION NOTE : 1995 Procedure Summary Date: 06/14/23 Room / Location: [facility] Endoscopy Anesthesia Start: 1404 Anesthesia Stop: 1434 Procedure: EGD - THERAPEUTIC, EUS, OR TUBE INTERVENTIONS Diagnosis: Aspiration of foreign body, initial encounter (Dysphagia) Scheduled Providers: Brinda Royal MD Responsible Provider: Bassam Davila MD Anesthesia Type: general ASA Status: 3 - Emergent Anesthesia Type: general Airway Type: ETT Last Vitals Vitals Value Taken Time BP 95/64 06/14/23 1500 Temp 36.3 ?C (97.3 ?F) 06/14/23 1507 HR SpO2 99 06/14/23 1445 Resp 16 06/14/23 1507 SpO2 98 % 06/14/23 1507 Post Anesthesia Patient Status Patient Evaluation: PACU. PACU/ICU Patient Condition: stable. Anticipated Disposition: phase 2 then home. Neurological Status: aware and responsive. Pulmonary Status: breathing comfortably on room air Airway Control: returned to baseline unsupported. Cardiovascular Status: stable. Pain Management: clinically adequate - multimodal analgesia pain management approach Postoperative Hydration: acceptable. Intraoperative Events: no significant anesthesia events Post Operative Nausea/Vomiting Status: no significant post operative nausea or vomiting Recommendation: continue current plan of care. Anesthesia Observations No Documentation SIGNATURE: Bassam Davila MD PATIENT NAME: Lynsey Johnson DATE: June 14, 2023 TIME: 4:43 PM CSN: [id number] Normal [facility] ANES PRE-OPon 06-14-2023 ANES PRE-OP HNO ID: [id number] Author: BASSAM DAVILA MD Service: Anesthesiology Author Type: Anesthesiologist Type: Anesthesia Preprocedure Evaluation Filed: 06/14/2023 13:58 Note Text: ANESTHESIOLOGY DAY OF SURGERY NOTE : 1995 Procedure Information Date/Time: 06/14/23 1330 Scheduled providers: Brinda Royal MD Procedure: EGD - THERAPEUTIC, EUS, OR TUBE INTERVENTIONS Location: [facility] Endoscopy Estimated body mass index is 20.12 kg/m? as calculated from the following: Height as of 05/25/23: 157.5 cm (5' 2). Weight as of an earlier encounter on 06/14/23: 49.9 kg (110 lb). Most recent hematocrit and potassium results: Hematocrit 45.1 06/14/2023 Potassium 4.6 06/14/2023 Relevant Problems NEURO-PSYCH (+) Generalized convulsive epilepsy (HCC) I - PHYSICAL EVALUATION AIRWAY Patient intubated: No. Tracheostomy tube not present Mallampati: II. TM distance: >3 FB. Neck ROM: full ROM without neurological symptoms. Mouth opening: adequate. Short neck: no. Thick neck: no DENTAL Dental findings: teeth intact. Additional exam findings: no II - ANESTHESIA PLAN ASA Score: 3; emergent. Anesthetic Plan: general Airway type: ETT The patient is not a current smoker. NPO Status: adequate Beta Benito Monitoring Plan Monitoring plan: Standard ASA. Post Procedure Analgesic Plan Postoperative analgesic plan: parenteral or oral opioids and multimodal analgesia. Informed Consent Anesthetic risks, benefits, alternatives, personnel and consent discussed: yes. Patient / Responsible Constitution Party agrees to proceed: yes Patient / Surrogate agrees to blood products: yes DNR status not reviewed with patient and/or family prior to surgery. Significant changes in the patient condition since the History and Physical, not otherwise documented in primary service progress note: no. Potential Anesthesia issues that may suggest increased risk of complications or contraindication to planned procedure: none. No vitals data found for the desired time range. Outpatient Medications as of 06/14/2023 Medication Sig - armodafinil (NUVIGIL) 250 mg tab Take 1 tablet by mouth once daily for 180 days. - folic acid 1 mg tablet Take 2 tablets by mouth once daily. - clonazePAM orally disintegrating (KLONOPIN WAFER) 0.5 mg disintegrating tablet Take one tablet by mouth as needed at the onset of a seizure. Do not exceed more than 2 doses in 24 hours. - lamoTRIgine ER (LAMICTAL XR) 100 mg 24 hr tablet Take 1 tablet by mouth twice daily. Take with 50 mg tablets for total of 150 mg twice daily - levETIRAcetam (KEPPRA) 1,000 mg tablet Take 1 tablet by mouth twice daily. - EPIDUO FORTE 0.3-2.5 % glwp Apply 0.3 mg to affected area as directed. - lamoTRIgine ER (LAMICTAL XR) 50 mg 24 hr tablet Take 1 tablet by mouth twice daily. Take with 100 mg tablets for total of 150 mg twice daily - levonorgestrel (MIRENA) 20 mcg/24 hours (5 yrs) 52 mg IUD 1 Each by INTRAUTERINE route as directed. Facility-Administered Medications as of 06/14/2023 Medication Dose Route Frequency - [COMPLETED] glucagon 1 mg injection 1 mg INTRAVENOUS ONCE - [COMPLETED] levETIRAcetam 1,000 mg injection (KEPPRA) 1,000 mg INTRAVENOUS ONCE - [COMPLETED] ondansetron (PF) 4 mg injection (ZOFRAN) 4 mg INTRAVENOUS ONCE - [COMPLETED] glucagon 1 mg injection 1 mg INTRAVENOUS ONCE - lactated ringers iv infusion 5-30 mL/hr INTRAVENOUS CONTINUOUS I have interviewed and examined the patient. I have reviewed the medical record and/or the pre-anesthesia evaluation, pertinent labs, and test results. This contains updated information obtained within 48 hours of Surgery/Procedure. SIGNATURE: Bassam Davila MD PATIENT NAME: Lynsey Johnson DATE: June 14, 2023 TIME: 1:57 PM CSN: [id number] [facility] CONSULTon 06-14-2023 CONSULT HNO ID: [id number] Author: BRINDA ROYAL MD Service: Gastroenterology Author Type: Physician Type: Consults Filed: 06/14/2023 14:01 Note Text: GASTROENTEROLOGY CONSULT NOTE PATIENT NAME: Lynsey Johnson SERVICE DATE: June 14, 2023 SERVICE TIME: 1:45 PM PRIMARY CARE PHYSICIAN: Tiburcio Summers MD ATTENDING PHYSICIAN: Dr. Mcconnell REASON FOR ADMISSION: Esophageal obstruction REASON FOR CONSULTATION: Esophageal obstruction HPI: This is a 28 year old female with a past medical history significant for Eosinophilic Esophagitis, seizure disorder and narcoplepsy who presented to [facility] with sensation of food impaction and transferred to [facility] for EGD. Reports history of food allergies and intermittent dysphagia. Yesterday evening she had steak, sweet potatoes and asparagus and felt food impaction. Has not been able to eat or drink since. Has been spitting up her saliva. No heartburn or reflux. Not taking any PPI or other treatment for EOE. Followed by [facility] and had last EGD with Dr. Limon in 2018. ALLERGIES: ALLERGIES Allergen Reactions [place] Shortness of Breath Pt with EOE Barley Shortness of Breath Patient diagnosed with Eosinophilic esophagitis [place] Shortness of Breath Beef Containing Pro* Shortness of Breath Patient diagnosed with EOE Cabbage Shortness of Breath Patient diagnosed with EOE Chicken Derived Shortness of Breath Dairy Aid [Lactase] Shortness of Breath Patient diagnosed with EOE Egg Shortness of Breath Patient diagnosed with EOE Gluten Shortness of Breath Oats Shortness of Breath Patient diagnosed with EOE Peanuts Shortness of Breath Patient diagnosed with EOE All nuts except cashews Peas Shortness of Breath Soy Shortness of Breath Patient diagnosed with EOE Tomatoes Shortness of Breath Patient diagnosed with EOE Wheat, Wheat Germ Shortness of Breath Patient diagnosed with EOE PAST MEDICAL HISTORY: PAST MEDICAL HISTORY Diagnosis Date Epilepsy (HCC) Esophageal spasm Occurs d/t food allergies. Had EGD with [facility] 2018. Narcolepsy PAST SURGICAL HISTORY: PAST SURGICAL HISTORY Procedure Laterality Date INSERTION OF IUD 05/29/2019 PAST SURGICAL HISTORY OF 2018 Upper GI Surgery /BALOONING TONSILLECTOMY HX MEDICATIONS: Prior to Admission Medications: Lamictal Keppra Folic acid Mirena Current Hospital Medications: No current facility-administered medications for this encounter. FAMILY HISTORY: No family history on file. SOCIAL HISTORY: Social History Tobacco Use Smoking status: Never Smokeless tobacco: Never Vaping Use Vaping Use: Some days Substances: CBD Substance Use Topics Alcohol use: Yes Drug use: Yes Types: Marijuana Comment: Delta 8 REVIEW OF SYSTEMS: CONSTITUTIONAL: No fevers, chills, night sweats, unintended weight loss HEENT: Denies frequent or severe headaches EYES: No diplopia or blurry vision CARDIOVASCULAR: No chest pain, dyspnea, palpitations, orthopnea, PND, ankle edema PULM: No dyspnea, unexplained cough GI: Per HPI : No new urinary complaints, including; dysuria, gross hematuria or pyuria NEURO: No dizziness, lightheadedness or vertigo MUSC/SKEL: No new joint pain, swelling, or erythema PSYCH: No concerns regarding depression, anxiety or panic INTEGUMENTARY: No new skin changes (rash, new or changing mole, new growth) PHYSICAL EXAM: No data found. There is no height or weight on file to calculate BMI. GENERAL: Alert AND oriented x 3. Cooperative. NAD EYES: No scleral icterus SKIN: [place] in color. No jaundice LUNGS: Clear to auscultation anteriorly CARDIAC: RRR ABDOMEN: BS x 4. Abdomen soft, non tender, non distended, no palpable masses or organomegaly. No guarding or rebound tenderness elicited EXTREMITIES: No upper or lower extremity edema LABS: Diagnostic tests reviewed for today's visit: CBC, Coags, BMP, Mg, Phos Recent Labs 06/14/23 1028 WBC 4.69 HB 15.5 HCT 45.1 PLT 173 NA 142 K 4.6 CHLOR 104 CO2 27 BUN 12 CREAT 0.97* GLUC 96 CA 9.8 MG 2.2 RADIOLOGY 06/14/2023 CXR No acute radiographic abnormality MOST RECENT EGD 2017 Dr. Limon Report not available ASSESSMENT Food Impaction/Esophageal obstruction Dysphagia Eosinophilic Esophagitis Seizure disorder/Narcolepsy PLAN - NPO - EGD for foreign body removal - risks, benefits and alternatives to EGD discussed and she agreed to proceed Thank you for the opportunity to participate in the care of this patient. I will continue to follow with you. SIGNATURE: Brinda Royal MD DATE: June 14, 2023 TIME: 1:45 PM Normal [facility] NURSING PROGon 06-14-2023 NURSING PROG HNO ID: [id number] Author: TALI MANDEL RN Service: ? Author Type: Registered Nurse Type: Nursing Progress Note Filed: 06/14/2023 14:19 Note Text: 1300 report from rn at [facility] she stated she was leaving patient's iv in and that her father was transporting [place] talked with Amber rn and said we don't leave iv's in patient unless transported by medical transport she said it was their policy to leave ivs in even if pt not transferred with medical personnel [facility] SURGICAL PATHOLOGYon 024 ADDENDUM 1: [facility] Comment on above: Order Comment: Tran del cid Type: TISSUE SPECIMEN Ordering Facility: [facility] Address: [address] [place] [address] Result Comment: This addendum is issued to report the results of immunohistochemical and special stains performed on the esophagogastric junction biopsy (Block B1). The original diagnoses remain unchanged. GMS fungal stain is negative. Immunohistochemical stains for cytomegalovirus and herpes simplex virus are negative. Laboratory Developed Test (LDT) Disclaimer: Performance characteristics of immunohistochemical, immunofluorescent and chromogenic in-situ hybridization tests have been determined by the performing laboratory within [facility] Pathology and Laboratory Medicine [place] [facility], [facility], [facility] or [facility]) in a manner consistent with CLIA requirements. One or more of these tests have not been cleared or approved by the FDA. [facility] is regulated under CLIA as qualified to perform high-complexity testing. These tests are used for clinical purposes. They should not be regarded as investigational or for research. Positive and negative controls stain appropriately. Addendum electronically signed by Hayley Martinez MD on 06/18/2023 at 12:36 PM Performed By: #### S #### [facility] CLIA [id number] OF [facility] CLIA [id number] [address] CASE REPORT [facility] Comment on above: Order Comment: Tran del cid Type: TISSUE SPECIMEN Ordering Facility: [facility] Address: [address] [place] [address] Result Comment: Surg ical Pathology Report Case: [id number] Authorizing Provider: Brinda Royal MD Collected: 06/14/2023 02:18 PM Ordering Location: [facility] Endoscopy Received: 06/14/2023 02:48 PM Pathologist: Hayley Martinez MD Specimens: A) - DUODENUM BIOPSY, sprue B) - ESOPHAGOGASTRIC JUNCTION BIOPSY, irregular z line C) - ESOPHAGUS BIOPSY, r/o eoe Performed By: #### S #### [facility] CLIA [id number] [address] [place] [address] LAB CLIA [id number] [address] [place] [address] DIAGNOSIS COMMENT Normal [facility] Comment on above: Order Comment: Tran del cid Type: TISSUE SPECIMEN Ordering Facility: [facility] Address: [address] [place] [address] Result Comment: The squamous epithelium shows different patterns of injury in specimen parts B and C. The esophagogastric junction biopsy (part B) shows predominantly neutrophil mediated inflammation in the squamous epithelium with scattered eosinophils. The differential diagnosis includes infection, reflux, mechanical injury, and drug/toxin induced injury. The esophagus biopsy (part C) shows predominantly intraepithelial eosinophil infiltrates with no significant active/neutrophil mediated inflammation. This finding is consistent with eosinophilic esophagitis in the appropriate clinical setting. Clinical and endoscopic correlation is suggested. GMS fungal stain and immunostain for virus will be reported in an addendum. Performed By: #### S #### [facility] CLIA [id number] [address] [place] [address] LAB CLIA [id number] [address] [place] [address] FINAL DIAGNOSIS Normal [facility] Comment on above: Order Comment: Speci men Type: TISSUE SPECIMEN Ordering Facility: [facility] Address: [address] [place] [address] Result Comment: A. D uodenum, biopsy: - Duodenal mucosa with no significant diagnostic alteration. B. Esophagogastric junction, biopsy: - Active esophagitis. - Inflamed gastric cardia-type mucosa. - No evidence of intestinal metaplasia or dysplasia. C. Esophagus, biopsy: - Squamous epithelium with intraepithelial eosinophil infiltrates (50/HPF). See comment. Performed By: #### S #### [facility] CLIA [id number] [address] [place] [address] OF [facility] CLIA [id number] [address] [place] [address] OF [facility] Normal [facility] Comment on above: Order Comment: Speci men Type: TISSUE SPECIMEN Ordering Facility: [facility] Address: [address] [place] [address] Result Comment: Diag nostic interpretation performed at [facility], [address] [place] [address] CLIA# [id number] Surveillance Agent: Betsey Desai M.D. Performed By: #### S #### [facility] CLIA [id number] [address] [place] [address] OF [facility] CLIA [id number] [address] [place] [address] GROSS DESCRIPTION Normal [facility] Comment on above: Order Comment: Speci men Type: TISSUE SPECIMEN Ordering Facility: [facility] Address: [address] [place] [address] Result Comment: A. D UODENUM BIOPSY Received in formalin are multiple pieces of hendrix, soft tissue aggregating to 1.0 x 0.2 x 0.2 cm. Totally submitted in one cassette. B. ESOPHAGOGASTRIC JUNCTION BIOPSY Received in formalin are multiple pieces of hendrix, soft tissue aggregating to 0.6 x 0.2 x 0.2 cm. Totally submitted in one cassette. C. ESOPHAGUS BIOPSY Received in formalin are multiple pieces of hendrix, soft tissue aggregating to 1.3 x 0.2 x 0.2 cm. Totally submitted in one cassette. Gross examination performed at [facility], [address] [place] [address] 06/14/2023 5:57 PM Performed By: #### S #### [facility] CLIA [id number] [address] [place] [address] OF [facility] CLIA [id number] [address] [place] [address] STATES OF [place] Upper GI endoscopyon 024 Upper GI endoscopy [facility] Gastrointestinal Endoscopy Patient Name: Lynsey Johnson Procedure Date: 06/14/2023 1:44 PM Date of : 1995 Admit Type: Outpatient Age: 28 Room: [facility] Gender: Female Note Status: Finalized Attending MD: Brinda Royal , , Procedure: Upper GI endoscopy Indications: Dysphagia, Foreign body in the esophagus Providers: Brinda Royal Referring Physician: Brinda Royal (Referring MD) Medicines: General Anesthesia Complications: No immediate complications. Requesting Provider: Procedure: Pre-Anesthesia Assessment: - Prior to the procedure, a History and Physical was performed, and patient medications, allergies and sensitivities were reviewed. The patient's tolerance of previous anesthesia was reviewed. - The risks and benefits of the procedure and the sedation options and risks were discussed with the patient. All questions were answered and informed consent was obtained. - Using IV propofol under the supervision of an anesthesiologist was determined to be medically necessary for this procedure based on review of the patient's medical history, medications, and prior anesthesia history. After obtaining informed consent, the endoscope was passed under direct vision. Throughout the procedure, the patient's blood pressure, pulse, and oxygen saturations were monitored continuously. The was introduced through the mouth, and advanced to the second part of duodenum. The upper GI endoscopy was accomplished with ease. The patient tolerated the procedure well. Moderate Sedation: See the other procedure note for documentation of moderate sedation with intraservice time. MAC anesthesia was administered by the anesthesia team. Total Procedure Duration: 0 hours 8 minutes 30 seconds Findings: Food was found in the lower third of the esophagus. Removal was accomplished with a Garg net. Mucosal changes including ringed esophagus, longitudinal furrows and small-caliber esophagus were found in the entire esophagus. Biopsies were obtained from the proximal and distal esophagus with cold forceps for histology of suspected eosinophilic esophagitis. One benign-appearing, intrinsic moderate stenosis was found as well as erythema from food impaction. The entire examined stomach was normal. The duodenal bulb, first portion of the duodenum and second portion of the duodenum were normal. Biopsies for histology were taken with a cold forceps for evaluation of celiac disease. Impression: - Food in the lower third of the esophagus. Removal was successful. - Esophageal mucosal changes consistent with eosinophilic esophagitis. Biopsies were taken with a cold forceps for evaluation of eosinophilic esophagitis. - Benign-appearing esophageal stenosis. - Normal stomach. - Normal duodenal bulb, first portion of the duodenum and second portion of the duodenum. Biopsied. Recommendation: - Await pathology results. - Use Protonix (pantoprazole) 40 mg PO daily. - Repeat upper endoscopy in 12 weeks to assess response to therapy and dilate esophagus. Procedure Code(s): --- Professional --- 65051, Esophagogastroduodenos copy, flexible, transoral; with removal of foreign body(s) 45169, Esophagogastroduodenos copy, flexible, transoral; with biopsy, single or multiple CPT copyright 2020 [employer]. All rights reserved. The codes documented in this report are preliminary and upon reaming machine tender review may be revised to meet current compliance requirements. Attending Participation: I personally performed the entire procedure. Scope In: 2:15:42 PM Scope Out: 2:24:12 PM Brinda Royal, 06/14/2023 2:33:16 PM This report has been signed electronically by Brinda Royal Number of Addenda: 0 Note Initiated On: 06/14/2023 1:44 PM Estimated Blood Loss: Estimated blood loss: none. Estimated blood loss: none. Normal [facility] KEPPRA (LEVETIRACETAM)on KEPPRA 9.3 ug/mL Abnormal 10.0-40.0 [facility] Comment on above: Performed By: #### L 300.8000, L100.0500, L500.2500 #### [facility] [address] [place], [address] Lamotrigine (Lamictal) Level on 11-18-2022 LAMOTRIGINE 6.7 ug/mL Normal 2.0-20.0 [facility] Comment on above: Result Comment: Dete ction Limit = 1.0 Performed at: [address] [id number] Favor Maker: Mylene Christensen MD, Phone: [phone] Performed By: #### L 3300.4400, L3310.0000 #### [facility] [address] [place], [address] Basic Metabolic Profile (BMP )on 11-04-2022 BUN/CRE 17.4 RATIO Normal 10-20 [facility] Comment on above: Order Comment: Order Date: 10/23/22 Order Info: 06- - BMP Performed By: #### L 300.8000, L100.0500, L500.2500 #### [facility] [address] [place], [address] CA,Total 9.4 mg/dL Normal 8.5-10.1 [facility] Comment on above: Order Comment: Order Date: 10/23/22 Order Info: 06 - BMP Performed By: #### L 300.8000, L100.0500, L500.2500 #### [facility] [address] [place], [address] Chloride [Moles/Vol] 107 mmol/L Normal 98-107 [facility] Comment on above: Order Comment: Order Date: 10/23/22 Order Info: 06 - BMP Performed By: #### L 300.8000, L100.0500, L500.2500 #### [facility] [address] [place], [address] CO2 [Moles/Vol] 28.0 mmol/L Normal 21.0-32.0 [facility] Comment on above: Order Comment: Order Date: 10/23/22 Order Info: 0667 - BMP Performed By: #### L 300.8000, L100.0500, L500.2500 #### [facility] [address] [place], [address] Creatinine [Mass/Vol] 0.98 mg/dL Normal 0.55-1.02 [facility] Comment on above: Order Comment: Order Date: 10/23/22 Order Info: 0667-1 - BMP Result Comment: The validity of the calculated GFR GFRAA in patients over 70 years has not been determined. Clinical correlation is essential. Performed By: #### L 300.8000, L100.0500, L500.2500 #### [facility] [address] [place], [address] EST GFR - AA 87 mL/min Normal >60 [facility] Comment on above: Order Comment: Order Date: 10/23/22 Order Info: 0667-1 - BMP Result Comment: Afri can [place] GFR Calc Performed By: #### L 300.8000, L100.0500, L500.2500 #### [facility] [address] [place], [address] GAP 4 Low 5-15 [facility] Comment on above: Order Comment: Order Date: 10/23/22 Order Info: 0667-1 - BMP Performed By: #### L 300.8000, L100.0500, L500.2500 #### [facility] [address] [place], [address] GFR/1.73 sq M.predicted among non-blacks MDRD (S/P/Bld) [Vol rate/Area] 72 mL/min/{1.73_m2} Normal >60 [facility] Comment on above: Order Comment: Order Date: 10/23/22 Order Info: 0667-1 - BMP Result Comment: Non- GFR Calc Performed By: #### L 300.8000, L100.0500, L500.2500 #### [facility] [address] [place], [address] Glucose [Mass/Vol] 102 mg/dL Normal 74-106 [facility] Comment on above: Order Comment: Order Date: 10/23/22 Order Info: 0667-1 - BMP Result Comment: Fast ing Glucose result from 100 to 125 mg/dL suggests IMPAIRED HOMEOSTASIS per A.D.A. criteria. Performed By: #### L 300.8000, L100.0500, L500.2500 #### [facility] [address] [place], [address] Potassium [Moles/Vol] 4.1 mmol/L Normal 3.5-5.1 [facility] Comment on above: Order Comment: Order Date: 10/23/22 Order Info: 0667- - BMP Performed By: #### L 300.8000, L100.0500, L500.2500 #### [facility] [address] [place], [address] Sodium [Moles/Vol] 139 mmol/L Normal 136-145 [facility] Comment on above: Order Comment: Order Date: 10/23/22 Order Info: 666-05 - BMP Performed By: #### L 300.8000, L100.0500, L500.2500 #### [facility] [address] [place], [address] Urea nitrogen [Mass/Vol] 17 mg/dL Normal 7-18 [facility] Comment on above: Order Comment: Order Date: 10/23/22 Order Info: 666-05 - BMP Performed By: #### L 300.8000, L100.0500, L500.2500 #### [facility] [address] [place], [address] Basophil percentageOrdered B y: Marianna Cutler on 11-04-2022 Chloride [Moles/Vol] 107 mmol/L 98-107 [facility] Glucose [Mass/Vol] 102 mg/dL 74-106 [facility] Comment on above: Fasting Glucose resu lt from 100 to 125 mg/dL suggests IMPAIRED HOMEOSTASIS per A.D.A. criteria. Potassium [Moles/Vol] 4.1 mmol/L 3.5-5.1 [facility] Sodium [Moles/Vol] 139 mmol/L 136-145 [facility] WBC (Bld) [#/Vol] 3.8 10*3/uL 4.4-11.0 [facility] Blood erythrocytes count (nu mber/volume)Ordered By: Marianna Cutler on 11-04-2022 RBC (Bld) [#/Vol] 4.36 10*6/uL 4.2-5.4 [facility] Blood hemoglobin measurement (mass/volume)Ordered By: Marianna Cutler on 11-04-2022 Hemoglobin (Bld) [Mass/Vol] 14.5 g/dL 12.0-15.0 [facility] Blood platelet mean volumeOr dered By: Marianna Cutler on 11-04-2022 Platelet mean volume (Bld) [Entitic vol] 10.3 fL 6.2-12.0 [facility] CBC-Complete Blood Cnt No Di ffon 11-04-2022 Erythrocyte distribution width (RBC) [Ratio] 11.5 % Low 11.6-14.6 [facility] Comment on above: Order Comment: Order Date: 10/23/22 Order Info: [id number] - CBC Performed By: #### L 300.8000, L100.0500, L500.2500 #### [facility] [address] [place], [address] Hematocrit (Bld) [Volume fraction] 42.7 % Normal 37-47 [facility] Comment on above: Order Comment: Order Date: 10/23/22 Order Info: [id number] - CBC Performed By: #### L 300.8000, L100.0500, L500.2500 #### [facility] [address] [place], [address] Hemoglobin (Bld) [Mass/Vol] 14.5 g/dL Normal 12.0-15.0 [facility] Comment on above: Order Comment: Order Date: 10/23/22 Order Info: [id number] - CBC Performed By: #### L 300.8000, L100.0500, L500.2500 #### [facility] [address] [place], [address] MCH (RBC) [Entitic mass] 33.3 pg High 27.0-32.0 [facility] Comment on above: Order Comment: Order Date: 10/23/22 Order Info: [id number] - CBC Performed By: #### L 300.8000, L100.0500, L500.2500 #### [facility] [address] [place], [address] MCHC (RBC) [Mass/Vol] 34.0 g/dL Normal 32-36 [facility] Comment on above: Order Comment: Order Date: 10/23/22 Order Info: [id number] - CBC Performed By: #### L 300.8000, L100.0500, L500.2500 #### [facility] [address] [place], [address] MCV (RBC) [Entitic vol] 97.9 fL Normal 81-99 [facility] Comment on above: Order Comment: Order Date: 10/23/22 Order Info: [id number] - CBC Performed By: #### L 300.8000, L100.0500, L500.2500 #### [facility] [address] [place], [address] Platelet mean volume (Bld) [Entitic vol] 10.3 fL Normal 6.2-12.0 [facility] Comment on above: Order Comment: Order Date: 10/23/22 Order Info: [id number] - CBC Performed By: #### L 300.8000, L100.0500, L500.2500 #### [facility] [address] [place], [address] Platelets (Bld) [#/Vol] 176 10*3/uL Normal 150-450 [facility] Comment on above: Order Comment: Order Date: 10/23/22 Order Info: [id number] - CBC Performed By: #### L 300.8000, L100.0500, L500.2500 #### [facility] [address] [place], [address] RBC (Bld) [#/Vol] 4.36 10*6/uL Normal 4.2-5.4 [facility] Comment on above: Order Comment: Order Date: 10/23/22 Order Info: [id number] - CBC Performed By: #### L 300.8000, L100.0500, L500.2500 #### [facility] [address] [place], [address] RDW SD 41.5 fl Normal 35.1-43.9 [facility] Comment on above: Order Comment: Order Date: 10/23/22 Order Info: [id number] - CBC Performed By: #### L 300.8000, L100.0500, L500.2500 #### [facility] [address] [place], [address] WBC (Bld) [#/Vol] 3.8 10*3/uL Low 4.4-11.0 [facility] Comment on above: Order Comment: Order Date: 10/23/22 Order Info: [id number] - CBC Performed By: #### L 300.8000, L100.0500, L500.2500 #### [facility] [address] [place], [address] D-Dimer Quantitative (DVT/PE )on 11-04-2022 D-DIMER QUANT < 0.27 Low 0.27-0.49 [facility] Comment on above: Order Comment: Order Date: 10/23/22 Order Info: [id number] - DDIMQ Result Comment: NORM AL D-Dimer level (<0.50) indicates no DVT or PE. Performed By: #### L 300.8000, L100.0500, L500.2500 #### [facility] [address] [place], [address] Determination of erythrocyte mean corpuscular volume (MCV)Ordered By: Marianna Cutler on 11-04-2022 MCV (RBC) [Entitic vol] 97.9 fL 81-99 [facility] Echo Completeon 11-04-2022 Echo Complete [facility] [address] [place] [address] Echo Complete 11/04/22 0835 MR#: [id number] Acct: [id number] Name: LYNSEY ORELLANA Rep #: [id number] : 1995 27 From: Bobby Reardon MD Attending Dr: EDEN Quezada Status: REG CLI Ordering Dr: Marianna Cutler NP SURVEY RESEARCH PROFESSOR-C Date: 11/04/22 Location: CVS Sex: F C Admitted: Reason For Study: CHEST PAIN Procedure This was a 2D Doppler, Color Flow transthoracic echocardiogram. Exam performed in department. Left Ventricle Normal LV size. Left ventricular systolic function is normal. The estimated ejection fraction is 60 %. Normal diastology for age. No regional wall motion abnormalities noted. Right Ventricle Normal RV size. Normal systolic function. Atria Normal left atrium. Normal right atrium. Mitral Valve Normal mitral valve. Tricuspid Valve Normal tricuspid valve. Aortic Valve Normal aortic valve. Trisinus/trileaflet aortic valve. Pulmonic Valve Normal pulmonic valve. Great Vessels Normal aortic root. The pulmonary artery is normal size. Inferior vena cava collapse with respiration. Pericardium/Pleural No pericardial effusion. MMode/2D Measurements Calculations LVIDd: 3.7 cm IVSd: 0.71 cm Ao root diam: 2.7 cm LVIDs: 2.7 cm LVPWd: 0.72 cm RVDd: 2.1 cm FS: 26.8 % LAV(MOD-bp): 42.3 ml LVAd ap4: 24.9 cm2 SV(MOD-sp4): 44.3 ml LAV(MOD-bp) Indexed: 28.7 ml/m2 LVLd ap4: 8.2 cm LAV(MOD-sp2): 36.1 ml EDV(MOD-sp4): 63.7 ml LAV(MOD-sp4): 43.0 ml EDV(sp4-el): 64.4 ml LVAs ap4: 11.7 cm2 LVLs ap4: 6.5 cm ESV(MOD-sp4): 19.5 ml ESV(sp4-el): 17.8 ml EF(MOD-sp4): 69.5 % EF(sp4-el): 72.3 % SV(sp4-el): 46.6 ml LA A4 area: 16.8 cm2 LA dimension(2D): 2.8 cm RA A4 area: 11.3 cm2 Time Measurements MV dec time: 0.20 sec Doppler Measurements Calculations MV E max ruben: 79.9 cm/sec Lat Peak E' Ruben: 19.5 cm/sec Med Peak E' Ruben: 14.3 cm/sec MV A max ruben: 64.2 cm/sec E/E' lat: 4.1 E/E' med: 5.6 MV E/A: 1.2 MV V2 max: 94.3 cm/sec Ao V2 max: 123.3 cm/sec MV max P.6 mmHg MV dec slope: 405.4 cm/sec2 Ao max P.1 mmHg MV V2 mean: 72.7 cm/sec Ao V2 mean: 88.7 cm/sec MV mean P.2 mmHg Ao mean P.5 mmHg MV V2 VTI: 19.7 cm Ao V2 VTI: 25.5 cm AV (velocity ratio): 0.91 LV V1 max: 118.8 cm/sec PA V2 max: 87.6 cm/sec LV V1 max P.7 mmHg PA V2 mean: 65.0 cm/sec LV V1 mean P.2 mmHg LV V1 mean: 86.1 cm/sec LV V1 VTI: 23.3 cm ECHO/Echo Complete Interpretation Summary Normal LV size. Left ventricular systolic function is normal. The estimated ejection fraction is 60 %. Structurally normal valves. Ordering Physician: Marianna Cutler Referring Physician: Marianna Cutler Performed By: Yris Holman RCS 11/04/221127 Date Bobby Reardon MD CC: SURVEY RESEARCH PROFESSOR-C Marianna Cutler; Dr. Amilcar Summers MD Date Dictated: 11/04/22834 Date Transcribed: 11/04/221127 Diving Instructor: Signed Normal [facility] Hematocrit Auto (Bld) [Volum e fraction]Ordered By: Marianna Cutler on 11-04-2022 Hematocrit (Bld) [Volume fraction] 42.7 % 37-47 [facility] - Chemistry and C hemistry - challengeOrdered By: Marianna Cutler on 11-04-2022 CO2 [Moles/Vol] 28.0 mmol/L 21.0-32.0 [facility] Urea nitrogen/Creatinine [Mass ratio] 17.4 mg/mg 10-20 [facility] - Hematology and Cell countsOrdered By: Marianna Cutler on 11-04-2022 Erythrocyte distribution width (RBC) [Entitic vol] 41.5 fL 35.1-43.9 [facility] Erythrocyte distribution width (RBC) [Ratio] 11.5 % 11.6-14.6 [facility] MCH (RBC) [Entitic mass] 33.3 pg 27.0-32.0 [facility] MCHC Auto (RBC) [Mass/Vol]Or dered By: Marianna Cutler on 11-04-2022 MCHC (RBC) [Mass/Vol] 34.0 g/dL 32-36 [facility] No Panel InformationOrdered By: Marianna Cutler on 11-04-2022 D-Dimer Quantitative (PE/DVT) < 0.27 FEU/ug/m 0.27-0.49 [facility] Comment on above: NORMAL D-Dimer level (<0.50) indicates no DVT or PE. Estimated GFR (MDRD) Amer 87 mL/min >60 [facility] Comment on above: GFR Calc Estimated GFR (MDRD) Non-Af Amer 72 mL/min >60 [facility] Comment on above: Non- GFR Calc Platelets bldOrdered By: Agatha Cutler on 11-04-2022 Platelets (Bld) [#/Vol] 176 10*3/uL 150-450 [facility] Serum or plasma calcium hilary urement (mass/volume)Ordered By: Marianna Cutler on 11-04-2022 Calcium [Mass/Vol] 9.4 mg/dL 8.5-10.1 [facility] Serum or plasma creatinine m easurement (mass/volume)Ordered By: Marianna Cutler on 11-04-2022 Creatinine [Mass/Vol] 0.98 mg/dL 0.55-1.02 [facility] Comment on above: The validity of the calculated GFR & GFRAA in patients over 70 years has not been determined. Clinical correlation is essential. Serum or plasma urea nitroge n measurement (mass/volume)Ordered By: Marianna Cutler on 11-04-2022 Urea nitrogen [Mass/Vol] 17 mg/dL 7-18 [facility] Thin prep Papanicolaou smear with manual screeningOrdered By: Marianna Cutler on 11-04-2022 Thin prep Papanicolaou smear with manual screening 4 5-15 [facility] Chest PA and Lateralon 10-21 Chest PA and Lateral [facility] Services [address] [place] [address] Chest PA and Lateral MR#: [id number] Acct: [id number] Name: LYNSEY ORELLANA Rep #: [id number] : 1995 F 27 From: Blake Frederick DO PCP: Dr. Amilcar Summers MD Status: REG CLI Study: Chest PA and Lateral Date of Exam: 10/21/22 Exam# [id number] Ordering Dr: Marianna Cutler NP SURVEY RESEARCH PROFESSOR-C INDICATION: chest pain EXAMINATION/TECHNIQUE: X-RAY - XR Chest 2 Views COMPARISON: FINDINGS: LINES/DEVICES: None. LUNGS: No consolidation, edema or effusion. No pneumothorax. MEDIASTINUM AND CARDIOVASCULAR STRUCTURES: Cardiac silhouette not enlarged. Central airways and mediastinal contour are unremarkable. BONES AND SOFT TISSUES: Unremarkable. RAD/Chest PA and Lateral IMPRESSION: No radiographic evidence of acute cardiopulmonary disease. Electronically Signed: Blake Frederick DO at 23:35 EDT , CC: EDEN Cutler; Dr. Amilcar Summers MD Diving Instructor: Signed Normal [facility] - Chemistry and C hemistry - challengeon 05-05-2022 Cobalamin (Vitamin B12) [Mass/Vol] 355 pg/mL 211-911 [facility] Work Phone: Free T4 [Mass/Vol] 0.91 ng/dL 0.76-1.46 [facility] Work Phone: No Panel Informationon 05-05 Thyroid Stimulating Hormone (TSH) 1.04 uIU/mL 0.358-3.74 [facility] Work Phone: Vitamin D 25-Hydroxy 15.8 ng/mL [facility] Work Phone: Comment on above: Vitamin D 25(OH) Sta tus Range Deficiency <20 ng/mL (50nmol/L) Insufficiency 20 - 30 ng/mL (50 - 75 nmol/L) Sufficiency 30 - 100 ng/mL (75 - 250 nmol/L) Toxicity >100 ng/mL (>250 nmol/L) T4 Free Directon 05-05-2022 T4 FREE DIRECT 0.91 ng/dL Normal 0.76-1.46 [facility] Comment on above: Performed By: #### L 501.9520, L506.1000, L506.0400, L503.0105 #### [facility] [address] [place], [address] Thyroid Stim Hormone (TSH)on 05-05-2022 TSH 1.04 uIU/mL Normal 0.358-3.74 [facility] Comment on above: Performed By: #### L 501.9520, L506.1000, L506.0400, L503.0105 #### [facility] [address] [place], [address] Vitamin B12on 05-05-2022 Cobalamin (Vitamin B12) [Mass/Vol] 355 pg/mL Normal 211-911 [facility] Comment on above: Performed By: #### L 501.9520, L506.1000, L506.0400, L503.0105 #### [facility] [address] [place], [address] Vitamin D,25 Hydroxyon 05-05 Vitamin D 25-OH 15.8 ng/mL Normal [facility] Comment on above: Result Comment: Tamela min D 25(OH) Status Range Deficiency <20 ng/mL (50nmol/L) Insufficiency 20 - 30 ng/mL (50 - 75 nmol/L) Sufficiency 30 - 100 ng/mL (75 - 250 nmol/L) Toxicity >100 ng/mL (>250 nmol/L) Performed By: #### L 501.9520, L506.1000, L506.0400, L503.0105 #### [facility] [address] [place], [address] Levetiracetamon 05-04-2019 Levetiracetam [Mass/Vol] 28.3 ug/mL Normal 12.0-46.0 [facility] Comment on above: Result Comment: This test is not suitable for patients receiving treatment with the drug brivaracetam (Briviact). The drug causes an interference that may lead to falsely elevated levetiracetam results. Reference ranges and high/low indicator flags are provided as general guidelines only. The treating physician must determine appropriate target levels/dosing based on the specific clinical situation. This test was developed and its performance characteristics determined by [facility] [place] ([facility]). It has not been cleared or approved by the FDA. [facility] is regulated under CLIA as qualified to perform high complexity testing. This test is used for clinical purposes. It should not be regarded as investigational or for research. Performing Laboratory: [facility] [address] [place] [address] Performed By: #### K EPPX #### [facility] [address] [id number] Vital Signs Date Time Vital Sign Value Performing Clinician Denisha pandey 01-22-2025 14:58-0400 Body mass index (BMI) [Ratio] 24.95 kg/m2 Buzz Carranza MD Work Phone: [facility] 01-22-2025 14:58-0400 Body weight 61.87 kg Buzz Carranza MD Work Phone: [facility] 01-22-2025 14:58-0400 Diastolic blood pressure 60 mm[Hg] Buzz Carranza MD Work Phone: [facility] 01-22-2025 14:58-0400 Systolic blood pressure 100 mm[Hg] Buzz Carranza MD Work Phone: [facility] 12-25-2024 11:21-0400 Body mass index (BMI) [Ratio] 23.41 kg/m2 Buzz Carranza MD Work Phone: [facility] 12-25-2024 11:21-0400 Body weight 58.06 kg Buzz Carranza MD Work Phone: [facility] 12-25-2024 11:21-0400 Diastolic blood pressure 60 mm[Hg] Buzz Carranza MD Work Phone: [facility] 12-25-2024 11:21-0400 Systolic blood pressure 100 mm[Hg] Buzz Carranza MD Work Phone: [facility] 11-27-2024 08:58-0400 Body mass index (BMI) [Ratio] 22.68 kg/m2 Catie Haury VETERINARIAN [employer]AL.[employer]LE[employer]IV[employer] MEMBER Work Phone: [facility] 11-27-2024 08:58-0400 Body weight 56.25 kg Catie Haury VETERINARIAN SMALL ANIMAL.COLLEGE OR [employer]IVERSITY [employer] MEMBER Work Phone: [facility] 11-27-2024 08:58-0400 Diastolic blood pressure 60 mm[Hg] Catie Haury VETERINARIAN SMALL ANIMAL.COLLEGE OR [employer]IVERSITY [employer] MEMBER Work Phone: [facility] 11-27-2024 08:58-0400 Systolic blood pressure 100 mm[Hg] Catie Haury VETERINARIAN SMALL ANIMAL.COLLEGE [employer]IVERSITY [employer] MEMBER Work Phone: [facility] 11-01-2024 09:59-0400 Body mass index (BMI) [Ratio] 21.58 kg/m2 Dillon Dillard MD Work Phone: [facility] 11-01-2024 09:59-0400 Body weight 53.52 kg Dillon Dillard MD Work Phone: [facility] 11-01-2024 09:59-0400 Diastolic blood pressure 58 mm[Hg] Dillon Dillard MD Work Phone: [facility] 11-01-2024 09:59-0400 Systolic blood pressure 96 mm[Hg] Dillon Dillard MD Work Phone: [facility] 10-02-2024 14:45-0400 Body height 157.5 cm Tika [place] VETERINARIAN [employer]IMAL.COL[employer]IVERSITY [employer] MEMBER Work Phone: [facility] 10-02-2024 14:45-0400 Body mass index (BMI) [Ratio] 21.8 kg/m2 Tika [place] VETERINARIAN [employer]IMAL.COLLE[employer]IVERSITY [employer] MEMBER Work Phone: [facility] 10-02-2024 14:45-0400 Body weight 54.07 kg Tika [place] VETERINARIAN [employer]IMAL.[employer]IVERSITY [employer] MEMBER Work Phone: [facility] 10-02-2024 14:45-0400 Diastolic blood pressure 64 mm[Hg] Tika Vero VETERINARIAN SMALL ANIMAL.[employer]GE [employer]IVERSITY [employer] MEMBER Work Phone: [facility] 10-02-2024 14:45-0400 Systolic blood pressure 118 mm[Hg] Tika Vero VETERINARIAN SMALL ANIMAL.COLLEGE [employer]IVERSITY [employer] MEMBER Work Phone: [facility] 07-10-2024 15:20-0500 Body mass index (BMI) [Ratio] 20.89 kg/m2 Krysta Sanches VETERINARIAN SMALL [employer]IMAL.[employer]LE[employer]IVERSITY [employer] MEMBER Work Phone: [facility] 07-10-2024 15:20-0500 Body temperature 101.3 [degF] Krysta Sanches APRN.COLLEGE [employer] UNIVERSITY [employer]AC[employer] MEMBER Work Phone: [facility] 07-10-2024 15:20-0500 Body weight 51.8 kg Krysta Sanches APRN.COLLEGE OR UNIVERSITY [employer] MEMBER Work Phone: [facility] 07-10-2024 15:20-0500 Diastolic blood pressure 82 mm[Hg] Krysta Sanches VETERINARIAN SMALL [employer]IMAL.[employer]LE[employer]IVERSITY [employer] MEMBER Work Phone: [facility] 07-10-2024 15:20-0500 Heart rate 115 /min Krysta Sanches APRN.COLLEGE OR [employer]IVERSITY [employer] MEMBER Work Phone: [facility] 07-10-2024 15:20-0500 Respiratory rate 20 /min Krysta Sanches VETERINARIAN [employer]AL.[employer]LE[employer]IVERSITY [employer] MEMBER Work Phone: [facility] 07-10-2024 15:20-0500 SaO2% (BldA) [Mass fraction] 97 % Krysta Sanches VETERINARIAN [employer]IMAL.[employer]LE[employer]IVERSITY [employer] MEMBER Work Phone: [facility] 07-10-2024 15:20-0500 Systolic blood pressure 110 mm[Hg] Krysta Sanches VETERINARIAN SMALL [employer]IMAL.[employer]LEGE [employer]IVERSITY [employer]AC[employer] MEMBER Work Phone: [facility] 01-11-2024 15:13-0400 Body mass index (BMI) [Ratio] 21.03 kg/m2 Tika [place] VETERINARIAN [employer]IMAL.[employer]LEGE [employer]IVERSITY [employer] MEMBER Work Phone: [facility] 01-11-2024 15:13-0400 Body weight 52.16 kg Tika Vero VETERINARIAN SMALL [employer]IMAL.[employer]LE[employer]IVERSITY [employer] MEMBER Work Phone: [facility] 01-11-2024 15:13-0400 Diastolic blood pressure 64 mm[Hg] Tika Vero VETERINARIAN SMALL ANIMAL.[employer]GE [employer]IVERSITY [employer] MEMBER Work Phone: [facility] 01-11-2024 15:13-0400 Systolic blood pressure 100 mm[Hg] Tika [place] VETERINARIAN SMALL ANIMAL.[employer]IVERSITY [employer] MEMBER Work Phone: [facility] 04-03-2022 15:57-0400 Body height 157.5 cm Tika Vero VETERINARIAN SMALL ANIMAL.[employer]IVERSITY [employer] MEMBER Work Phone: [facility] 04-03-2022 15:57-0400 Body weight 50.35 kg Tika Vero VETERINARIAN SMALL ANIMAL.[employer]IVERSITY [employer] MEMBER Work Phone: [facility] 04-03-2022 15:57-0400 Diastolic blood pressure 66 mm[Hg] Tika [place] VETERINARIAN SMALL [employer]IMAL.[employer]IVERSITY [employer] MEMBER Work Phone: [facility] 04-03-2022 15:57-0400 Systolic blood pressure 102 mm[Hg] Tika Vero VETERINARIAN SMALL [employer]IMAL.[employer]IV[employer] MEMBER Work Phone: [facility] 02-27-2022 15:07-0400 Body weight 50.8 kg Dillon Dillard MD Work Phone: [facility] 11-05-2021 16:05-0400 Diastolic blood pressure 65 mm[Hg] Lilyjames Barrerendira VET[employer]INARIAN [employer]IV[employer] MEMBER Work Phone: [facility] 11-05-2021 16:05-0400 Heart rate 76 /min Lily Rom VETERINARIAN [employer]AL.[employer]IVERSITY [employer] MEMBER Work Phone: [facility] 11-05-2021 16:05-0400 Systolic blood pressure 108 mm[Hg] Lily Barramiashleymartín VETERINARIAN [employer]IMAL.COL[employer]IVERSITY [employer] MEMBER Work Phone: [facility] 09-03-2021 08:01-0400 Body height 157.5 cm Yamileth Ewing MD Work Phone: [facility] 09-03-2021 08:01-0400 Body weight 49.9 kg Yamileth Ewing MD Work Phone: [facility] 09-03-2021 08:01-0400 Diastolic blood pressure 71 mm[Hg] Yamileth Ewing MD Work Phone: [facility] 09-03-2021 08:01-0400 Heart rate 85 /min Yamileth wEing MD Work Phone: [facility] 09-03-2021 08:01-0400 Respiratory rate 18 /min Yamileth Ewing MD Work Phone: [facility] 09-03-2021 08:01-0400 SaO2% (BldA) [Mass fraction] 100 % Yamileth Ewing MD Work Phone: [facility] 09-03-2021 08:01-0400 Systolic blood pressure 112 mm[Hg] Yamileth Ewing MD Work Phone: [facility] Encounters Encounter Date Encounter Type Care Provider Facility Start: 04-07-2025 End: 04-07-2025 ambulatory [facility] Facility:[facility] Start: 04-02-2025 End: 04-02-2025 ambulatory TIBURCIO SUMMERS Facility:[facility] Start: 03-19-2025 End: 03-19-2025 ambulatory TIBURCIO SUMMERS Facility:[facility] Start: 03-14-2025 End: 03-14-2025 ambulatory TIBURCIO SUMMERS Facility:[facility] Start: 03-05-2025 End: 03-05-2025 ambulatory TIBURCIO SUMMERS Facility:[facility] Start: 03-05-2025 End: 03-05-2025 ambulatory TIBURCIO SUMMERS Facility:[facility] Start: 02-27-2025 End: 02-27-2025 ambulatory ANTONIRUSS SUMMERS Facility:[facility] Start: 02-21-2025 End: 02-21-2025 ambulatory ANTONIRUSS SUMMERS Facility:[facility] Start: 02-12-2025 End: 02-14-2025 Refill Nataliya Howe PA-C Work Phone: [facility] Comment on above: Refill Request Start: 01-31-2025 End: 02-01-2025 Telephone encounter Nataliya Howe PA-C Work Phone: Neurology Start: 01-27-2025 End: 01-27-2025 ambulatory NATALIYA HOWE Facility:[facility] Start: 01-22-2025 End: 01-22-2025 Patient encounter procedure Buzz Carranza MD Work Phone: OB/Gynecology Comment on above: Generalized convulsi ve epilepsy (HCC) (Primary Dx); 24 weeks gestation of (HCC); Supervision of high risk in second trimester (HCC); Screening for diabetes mellitus Start: 01-22-2025 End: 01-22-2025 ambulatory ANTONIRUSS BLOOMDEVONTE Facility:[facility] Start: 12-25-2024 End: 12-25-2024 Patient encounter procedure [employer] [facility] Comment on above: Encounter for anatomic survey (HCC) (Primary Dx); 20 weeks gestation of (HCC) Supervision of high risk in second trimester (HCC) (Primary Dx); 20 weeks gestation of (HCC); Supervision of high risk , antepartum (HCC); History of epilepsy Start: 12-25-2024 End: 12-25-2024 ambulatory ANTONIRUSS SUMMERS Facility:[facility] Start: 12-15-2024 End: 12-18-2024 Telephone encounter Yamileth Ewing MD Work Phone: Neurology Comment on above: Medication Authoriza tion (Levetiractam ) Start: 12-06-2024 End: 12-07-2024 ambulatory Nataliya Howe PA-C Work Phone: [facility] [place] Comment on above: Medication levels Start: 12-06-2024 End: 12-07-2024 E-mail encounter from caregiver Nataliya Carley DELAROSA Work Phone: [facility] [place] Start: 11-27-2024 End: 11-27-2024 Patient encounter procedure Catie Alejandro APRN.CNP Work Phone: OB/Gynecology Comment on above: Supervision of high risk in second trimester (HCC) (Primary Dx); 16 weeks gestation of (HCC); Generalized convulsive epilepsy (HCC) Start: 11-27-2024 End: 11-27-2024 ambulatory TIBURCIO SUMMERS Facility:[facility] Start: 11-20-2024 End: 11-20-2024 ambulatory NATALIYA HOWE Facility:[facility] Start: 11-06-2024 End: 01-06-2025 Follow-up encounter Catie Alejandro APRN.CNP Work Phone: OB/Gynecology Start: 11-01-2024 End: 11-01-2024 ambulatory TIBURCIO SUMMERS Facility:[facility] Start: 11-01-2024 End: 11-01-2024 Patient encounter procedure Dillon Dillard MD Work Phone: OB/Gynecology Comment on above: care, first in first trimester (HCC) (Primary Dx); Supervision of high risk in first trimester (HCC); Generalized convulsive epilepsy (HCC); 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); Supervision of high risk , antepartum (HCC) Encounter for antena yanelis screening for malformation using ultrasound (HCC) (Primary Dx); 12 weeks gestation of (HCC) Start: 11-01-2024 End: 11-01-2024 ambulatory TIBURCIO SUMMERS Facility:[facility] Start: 10-30-2024 End: 10-30-2024 ambulatory TIKA PHAM Facility:[facility] Start: 10-26-2024 End: 10-26-2024 ambulatory SHELLEY DAVIS Facility:[facility] Start: 10-25-2024 End: 10-25-2024 Telemedicine consultation with patient Nataliya Howe PA-C Work Phone: Neurology Start: 10-25-2024 End: 10-25-2024 ambulatory Nataliya CESPEDES-Michelle Work Phone: Neurology Comment on above: Generalized convulsi ve epilepsy (HCC) (Primary Dx) Start: 10-23-2024 End: 10-27-2024 ambulatory Nataliya CESPEDES-Michelle Work Phone: Neurology Comment on above: BMV Form Start: 10-15-2024 End: 10-16-2024 Refill Nataliya Howe PA-C Work Phone: Neurology Comment on above: Refill Request Start: 10-05-2024 End: 10-05-2024 Telephone encounter Buzz Carranza MD Work Phone: OB/Gynecology Comment on above: Question (OB Questio n) Start: 10-02-2024 End: 10-02-2024 Patient encounter procedure Tika Pham APRN.CNP Work Phone: OB/Gynecology Comment on above: Supervision of high risk , antepartum (HCC) (Primary Dx); with uncertain dates, antepartum (HCC); Screen for STD (sexually transmitted disease); care, first in first trimester (HCC); 8 weeks gestation of (HCC) Start: 10-02-2024 End: 10-02-2024 ambulatory TIBURCIO SUMMERS Facility:[facility] Start: 10-02-2024 End: 12-02-2024 Follow-up encounter Tika Pham APRN.CNP Work Phone: OB/Gynecology Start: 09-29-2024 End: 09-29-2024 E-mail encounter from caregiver iTka Pham APRN.CNP Work Phone: OB/Gynecology Start: 09-29-2024 End: 09-29-2024 Patient encounter procedure Tika Pham [employer].COLLEGE OR UNIVERSITY FACULTY MEMBER Work Phone: OB/Gynecology Comment on above: New OB appointment Start: 09-14-2024 End: 09-14-2024 Follow-up encounter Romelia Suresh VETERINARIAN SMALL ANIMAL.CNM Work Phone: OB/Gynecology Start: 09-13-2024 End: 09-13-2024 ambulatory ROMELIA SURESH Facility:[facility] Start: 09-13-2024 End: 11-13-2024 Follow-up encounter Romelia Suresh [employer]ARIAN [employer].CNM Work Phone: OB/Gynecology Start: 09-11-2024 End: 09-11-2024 [place]ulatory [place] Facility[place] Start: 09-11-2024 End: 09-11-2024 Telemedicine consultation with patient Romelia Suresh [employer]AL.CNM Work Phone: OB/Gynecology Start: 09-11-2024 End: 09-11-2024 ambulatory Romelia Suresh [employer].CNM Work Phone: OB/Gynecology Comment on above: Positive t est (HCC) (Primary Dx); Spotting Start: 09-08-2024 End: 09-08-2024 Telephone encounter Mery Turner MD Work Phone: OB/Gynecology Comment on above: Care (+ pre gnancy test) Start: 07-10-2024 End: 07-10-2024 Subsequent hospital visit by physician Xr [facility] [place] Work Phone: Radiology Comment on above: Acute cough [R05.1] Start: 07-10-2024 End: 07-10-2024 ambulatory TIBURCIO SUMMERS Facility:[facility] Start: 07-10-2024 End: 07-10-2024 Patient encounter procedure Krysta Sanches [employer].COLLEGE OR UNIVERSITY FACULTY MEMBER Work Phone: [facility] Comment on above: Sore throat (Primary Dx); Acute cough; Bacterial pneumonia Start: 06-19-2024 End: 06-20-2024 Refnemesio Howe PA-C Work Phone: Neurology Comment on above: Refill Request Start: 01-11-2024 End: 01-11-2024 Patient encounter procedure Tika Pham APRN.COLLEGE OR UNIVERSITY FACULTY MEMBER Work Phone: OB/Gynecology Comment on above: Encounter for IUD re moval (Primary Dx) Start: 11-28-2023 Refill Juan mederos MD Work Phone: Sleep Comment on above: Refill Request Start: 11-09-2023 ambulatory Juan mederos Jr., MD Work Phone: Sleep Start: 11-09-2023 Patient encounter procedure Juan Hood MD Work Phone: Sleep Comment on above: Possible Missed Appo intment Start: 11-08-2023 End: 11-08-2023 ambulatory Nataliya Howe PA-C Work Phone: Neurology Comment on above: Generalized epilepsy (HCC) (Primary Dx) Start: 11-08-2023 End: 11-08-2023 Telemedicine consultation with patient Nataliya Carley DELAROSA Work Phone: Neurology Start: 10-30-2023 ambulatory Yamileth Ewing MD Work Phone: Neurology Comment on above: Form Start: 10-26-2023 Refill Juan mederos MD Work Phone: Sleep Comment on above: Refill Request Start: 08-23-2023 ambulatory Yamileth Ewing MD Work Phone: [facility] Start: 08-23-2023 Patient encounter procedure Yamileth Ewing MD Work Phone: Neurology Comment on above: Therapy Referral Start: 07-23-2023 Refill Juan mederos MD Work Phone: Sleep Comment on above: Refill Request Medication Approval Fail Start: 07-20-2023 Telephone encounter Juan Hood MD Work Phone: Neurology Comment on above: Patient Question Start: 07-13-2023 End: 07-13-2023 ambulatory Juan Hood MD Work Phone: Sleep Comment on above: Primary narcolepsy w ithout cataplexy (Primary Dx) Start: 07-13-2023 End: 07-13-2023 Telemedicine consultation with patient Juan Hood Jr., MD Work Phone: [facility] Start: 06-14-2023 ambulatory TIBURCIO SUMMERS Fa cility:[facility] Start: 05-10-2023 Telephone encounter Juan Hood MD Work Phone: Neurology Comment on above: Orders Start: 04-12-2023 Refill Juan mederos MD Work Phone: Neurology Comment on above: Refill Request Start: 03-05-2023 Refill Juan mederos MD Work Phone: Neurology Comment on above: Refill Request Start: 02-02-2023 Refill Juna mederos MD Work Phone: Neurology Comment on above: Refill Request Start: 01-26-2023 Refill Shelley moore [employer].COLLEGE OR UNIVERSITY FACULTY MEMBER Work Phone: Neurology Comment on above: Refill Request Start: 12-29-2022 ambulatory Juan mederos MD Work Phone: Neurology Comment on above: Pharmacy Switch Start: 12-25-2022 Refill Juan mederos MD Work Phone: Neurology Comment on above: Refill Request Start: 11-14-2022 End: 11-14-[address] Amilcar Summers Work Phone: [facility] Work Phone: Start: 11-14-2022 End: 11-14-[address] Amilcar Summers Work Phone: [facility]-Laboratory Start: 11-11-2022 End: 11-11-2022 ambulatory Beth Casillas APRN.COLLEGE OR UNIVERSITY FACULTY MEMBER Work Phone: Neurology Comment on above: Generalized epilepsy (HCC) Start: 11-11-2022 End: 11-11-2022 Telemedicine consultation with patient Beth Casillas APRN.COLLEGE OR UNIVERSITY FACULTY MEMBER Work Phone: [facility] Start: 11-04-2022 End: 11-04-2022 ambulatory Marianna Cutler SURVEY RESEARCH PROFESSOR [place] Start: 11-04-2022 Non-patient / Non-visit Dr. Olvin Summers Work Phone: [facility] Start: 11-04-2022 End: 11-04-[address] Amilcar Summers Work Phone: [facility]-Cardiovascul ar Services Start: 10-27-2022 Telephone encounter Yamileth flood MD Work Phone: Neurology Comment on above: Forms ([facility]) Start: 10-21-2022 End: 10-21-[address] Amilcar Summers Work Phone: [facility] Work Phone: Start: 10-21-2022 End: 10-21-[address] Amilcar Summers Work Phone: [facility]-Radiology, [place] Start: 10-01-2022 Refill Juan mederos MD Work Phone: Neurology Comment on above: Refill Request Start: 07-29-2022 Telephone encounter Yamileth flood MD Work Phone: Neurology Comment on above: Refill Request Start: 06-13-2022 Refill Juan mederos MD Work Phone: Neurology Comment on above: Refill Request Start: 06-02-2022 Telephone encounter Juan Hood MD Work Phone: Neurology Comment on above: Insurance Authorizat ion (Armodafinil ) Start: 05-22-2022 ambulatory Juan mederos MD Work Phone: Neurology Comment on above: Test Results Start: 05-06-2022 Telephone encounter Juan Hood MD Work Phone: Neurology Comment on above: Outside Labs Results Start: 05-05-2022 End: 05-05-2022 Patient encounter procedure [facility]-Laboratory Start: 05-05-2022 End: 05-05-2022 ambulatory Juan Hood [facility] Work Phone: Start: 05-05-2022 Telephone encounter Amilcar Summers MD Work Phone: [facility] Comment on above: Fax Request Start: 05-04-2022 End: 05-04-2022 ambulatory Juan Hood MD Work Phone: Neurology Comment on above: Primary narcolepsy w ithout cataplexy (Primary Dx); Memory problem; Generalized convulsive epilepsy (HCC); Narcolepsy without cataplexy Start: 05-04-2022 End: 05-04-2022 Telemedicine consultation with patient Juan Hood Jr., MD Work Phone: [facility] Start: 04-04-2022 Refill Lily pelaez APRN.COLLEGE OR UNIVERSITY FACULTY MEMBER Work Phone: Neurology Comment on above: Refill Request Start: 04-03-2022 End: 04-03-2022 Patient encounter procedure Tika Pham APRN.COLLEGE OR UNIVERSITY FACULTY MEMBER Work Phone: OB/Gynecology Comment on above: Encounter for gyneco logical examination (general) (routine) without abnormal findings (Primary Dx); Screening for cervical cancer; Encounter for routine checking of intrauterine contraceptive device (IUD) Start: 04-03-2022 End: 04-03-2022 Patient encounter status Tika Pham APRN.COLLEGE OR UNIVERSITY FACULTY MEMBER Work Phone: OB/Gynecology Start: 02-27-2022 End: 02-27-2022 Patient encounter procedure Diloln Dillard MD Work Phone: OB/Gynecology Comment on above: IUD check up (Primar y Dx); Abnormal uterine bleeding (AUB) Start: 02-27-2022 Telephone encounter Dillon Dillard MD Work Phone: OB/Gynecology Comment on above: IUD Start: 12-09-2021 Telephone encounter Alisa WILCOX Neurology Comment on above: Returning Patient's Call Start: 11-05-2021 End: 11-05-2021 Patient encounter procedure Lily Cueto APRN.COLLEGE OR UNIVERSITY FACULTY MEMBER Work Phone: Neurology Comment on above: Narcolepsy without c ataplexy (Primary Dx); Nonintractable epilepsy without status epilepticus, unspecified epilepsy type (HCC) Start: 10-20-2021 Refill Juan mederos MD Work Phone: Neurology Comment on above: Refill Request Start: 10-13-2021 Telephone encounter Yamileth flood MD Work Phone: Neurology Comment on above: Outside Labs Results ([facility]) Start: 09-10-2021 Telephone encounter Yamileth flood MD Work Phone: Neurology Comment on above: Medication Concern ( Levetiracetam) Start: 09-09-2021 ambulatory Alisa WILCOX N eurology Comment on above: Resources Start: 09-09-2021 E-mail encounter fro m caregiver Alisa WILCOX [facility] Start: 09-05-2021 Telephone encounter Alisa WILCOX Neurology Comment on above: 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 Start: 09-03-2021 Telephone encounter Yamileth flood MD Work Phone: Neurology Comment on above: Forms ([facility]) Start: 09-03-2021 End: 09-03-2021 Patient encounter procedure Yamileth Ewing MD Work Phone: Neurology Comment on above: Generalized epilepsy (HCC); Breakthrough seizure (HCC); Anxiety Start: 09-01-2021 Refill Shelley moore V[employer]INARIAN [employer]IMAL.COLLEGE OR UNIVERSITY FACULTY MEMBER Work Phone: Neurology Comment on above: Refill Request Refill Request; Refi ll Request Start: 09-01-2021 Refill Yamileth Ewing MD Work Phone: Neurology Comment on above: Refill Request Procedures Date Procedure Procedure Detail Performing Clinician Start: 12-25-2024 Us preg uterus after 1st trimest 05/31 gestation Tika Vero V[employer]IN[employer]IAN [employer]IMAL.COLLEGE OR UNIVERSITY FACULTY MEMBER Work Phone: Start: 11-01-2024 Us preg uterus after 1st trimest 1/ gestation Tika [place] VETERINARIAN SMALL ANIMAL.COLLEGE OR UNIVERSITY FACULTY MEMBER Work Phone: Start: 10-30-2024 Antibody screen [facility] Comment on above: Order Comment: Speci men Type: BLOOD SPECIMEN Ordering Facility: [facility] Address: [address] [place] [address] Performed By: #### T SPN #### [facility] CLIA [id number] 1 [place] [address] [place] Start: 10-02-2024 Us uterus limited 1/> fetuses Tika Vero VETERINARIAN SMALL ANIMAL.COLLEGE OR UNIVERSITY FACULTY MEMBER Work Phone: Start: 07-10-2024 Radiologic exam ches t 2 views Krysta Sanches APRN.COLLEGE OR UNIVERSITY FACULTY MEMBER Work Phone: Start: 07-10-2024 STREP A MOLECULAR (POC) Krysta Sanches APRN.COLLEGE OR UNIVERSITY FACULTY MEMBER Work Phone: Start: 10-21-2022 Plain chest X-ray Dr. Michelle Summers Work Phone: Start: 09-03-2021 Adult depression screening assessment Yamileth Ewing MD Work Phone: Start: 09-02-2020 Adult depression screening assessment Shelley Davis APRN.COLLEGE OR UNIVERSITY FACULTY MEMBER Work Phone: Plan of Treatment Date Care Activity Detail Author Start: 04-28-2033 Urine microalbumin profile DTaP,Tdap,Td Vaccine (7 - Td or Tdap) [facility] Start: 10-02-2029 Screening for malign ant neoplasm of cervix Cervical Cancer Screening [facility] Start: 04-23-2025 End: 04-23-2025 Patient encounter procedure 04/23/2025 3:10 PM EST Routine Office Visit OB/Gynecology [address] [place], [place] [id number] Mery Turner MD [address] [place] [id number] OB OB/Gynecology Comment on above: OB Start: 04-16-2025 End: 04-16-2025 Patient encounter procedure 04/16/2025 3:10 PM EST Routine Office Visit OB/Gynecology [address] [place] [address] Buzz Carranza MD [address] [place] [address] OB OB/Gynecology Comment on above: OB Start: 04-03-2025 PAP TESTING PAP TESTING [facility] Start: 04-03-2025 Screening for malign ant neoplasm of cervix [facility] Start: 04-02-2025 End: 04-02-2025 Patient encounter procedure 04/02/2025 3:10 PM EST Routine Office Visit OB/Gynecology [address] [place] [address] Buzz Carranza MD [address] [place] [address] OB OB/Gynecology Comment on above: OB Start: 03-19-2025 End: 03-19-2025 Patient encounter procedure Maternal Medicine Comment on above: Growth Growth/OB Start: 03-16-2025 RSV Vaccine (1 - Ris k 1-dose series) RSV Vaccine (1 - Risk 1-dose series) [facility] Start: 03-05-2025 End: 03-05-2025 Patient encounter procedure 03/05/2025 3:10 PM EDT Routine Office Visit OB/Gynecology [address] [place] [address] Buzz Carranza MD [address] [place] [address] OB OB/Gynecology Comment on above: OB Start: 02-22-2025 End: 05-24-2025 ANEMIA REFLEX PANEL ANEMIA REFLEX PANEL Lab Routine 24 weeks gestation of (HCC) Supervision of high risk in second trimester (HCC) Expected: 02/22/2025 (Approximate), Expires: 05/24/2025 [facility] Comment on above: Expected: 02/22/2025 (Approximate), Expires: 05/24/2025 Start: 02-22-2025 End: 01-22-2026 GESTATIONAL GLUCOSE SCREEN, 1-HOUR, 50 GRAM, NON-FASTING GESTATIONAL GLUCOSE SCREEN, 1-HOUR, 50 GRAM, NON-FASTING Lab Routine 24 weeks gestation of (HCC) Supervision of high risk in second trimester ([facility]) Screening for diabetes mellitus Expected: 02/22/2025 (Approximate), Expires: 01/22/2026 [facility] Work Phone: Comment on above: Expected: 02/22/2025 (Approximate), Expires: 01/22/2026 Start: 02-22-2025 End: 01-22-2026 SYPHILIS TREPONEMAL W/REFLEX SYPHILIS TREPONEMAL W/REFLEX Lab Routine 24 weeks gestation of ([facility]) Supervision of high risk in second trimester ([facility]) Expected: 02/22/2025 (Approximate), Expires: 01/22/2026 [facility] Comment on above: Expected: 02/22/2025 (Approximate), Expires: 01/22/2026 Start: 02-21-2025 End: 02-21-2025 Patient encounter procedure Maternal Medicine Comment on above: Growth/OB Start: 02-21-2025 End: 02-21-2025 ambulatory 02/21/2025 2:45 PM EDT Results Only [facility] Laboratory [address] [place] [address] Glucose/OB [facility] Comment on above: Glucose/OB Start: 01-29-2025 Influenza vaccination C [facility] Start: 01-27-2025 End: 01-27-2025 ambulatory [facility] Start: 01-22-2025 End: 01-22-2025 Patient encounter procedure 01/22/2025 3:10 PM EDT Routine Office Visit OB/Gynecology [address] [place] [address] Buzz Carranza MD [address] [place] [address] OB OB/Gynecology Comment on above: OB Start: 12-25-2024 End: 12-25-2024 Patient encounter procedure Maternal Medicine Comment on above: Anatomy Anatomy/OB Start: 12-08-2024 End: 12-08-2024 Patient encounter procedure 12/08/2024 10:00 AM EDT Routine Office Visit Maternal Medicine [address] [place] [address] ANatomy Maternal Medicine Comment on above: ANatomy Start: 11-27-2024 End: 11-27-2024 Patient encounter procedure 11/27/2024 9:00 AM EDT Routine Office Visit OB/Gynecology [address] [place], [place] [phone] Catie Alejandro APRN.COLLEGE OR UNIVERSITY FACULTY MEMBER [address] [place] [place] [address] OB OB/Gynecology Comment on above: OB Start: 11-20-2024 End: 11-20-2024 ambulatory [facility] Start: 11-01-2024 End: 01-31-2025 Chromosome 21 trisomy [Presence] in Blood or Tissue by Cytogenetics [facility] Work Phone: Comment on above: Expected: 11/01/2024 , Expires: 01/31/2025 Start: 11-01-2024 End: 11-01-2024 Patient encounter procedure Maternal Medicine Comment on above: Nuchal Nuchal /OB Start: 10-30-2024 End: 10-30-2024 ambulatory 10/30/2024 9:30 AM EDT Results Only [facility] [address] [place] [address] [facility] Start: 10-24-2024 End: 01-23-2025 lamoTRIgine [Mass/volume] in Serum or Plasma LAMOTRIGINE Lab Routine Generalized epilepsy (HCC) Expected: 10/24/2024, Expires: 01/23/2025 [facility] Work Phone: Comment on above: Expected: 10/24/2024 , Expires: 01/23/2025 Start: 10-02-2024 End: 10-02-2024 Patient encounter procedure 10/02/2024 2:45 PM EDT Initial Office Visit OB/Gynecology [address] [place] [address] Tika Pham APRN.COLLEGE OR UNIVERSITY FACULTY MEMBER [address] [place] [address] New OB OB/Gynecology Comment on above: New OB Start: 10-02-2024 End: 01-01-2025 ANEMIA REFLEX PANEL ANEMIA REFLEX PANEL Lab Routine with uncertain dates, antepartum (HCC) Screen for STD (sexually transmitted disease) care, first in first trimester (HCC) Expected: 10/02/2024, Expires: 01/01/2025 [facility] Work Phone: Comment on above: Expected: 10/02/2024 , Expires: 01/01/2025 Start: 10-02-2024 End: 01-01-2025 Hemoglobin A1c in Blood HEMOGLOBIN A1C Lab Routine with uncertain dates, antepartum (HCC) Screen for STD (sexually transmitted disease) care, first in first trimester (HCC) Expected: 10/02/2024, Expires: 01/01/2025 [facility] Comment on above: Expected: 10/02/2024 , Expires: 01/01/2025 Start: 10-02-2024 End: 01-01-2025 Hepatitis B virus surface Ag [Presence] in Serum HEPATITIS B SURFACE ANTIGEN Lab Routine with uncertain dates, antepartum (HCC) Screen for STD (sexually transmitted disease) care, first in first trimester (HCC) Expected: 10/02/2024, Expires: 01/01/2025 [facility] Comment on above: Expected: 10/02/2024 , Expires: 01/01/2025 Start: 10-02-2024 End: 01-01-2025 Hepatitis C virus Ab [Presence] in Serum HEPATITIS C ANTIBODY IA WITH CONFIRMATION Lab Routine with uncertain dates, antepartum (HCC) Screen for STD (sexually transmitted disease) care, first in first trimester (HCC) Expected: 10/02/2024, Expires: 01/01/2025 [facility] Comment on above: Expected: 10/02/2024 , Expires: 01/01/2025 Start: 10-02-2024 End: 01-01-2025 HIV 1+2 Ab [Presence] in Serum or Plasma by Immunoassay HIV 1/2 COMBO WITH REFLEX TO DIFFERENTIATION Lab Routine with uncertain dates, antepartum ([facility]) Screen for STD (sexually transmitted disease) care, first in first trimester ([facility]) Expected: 10/02/2024, Expires: 01/01/2025 [facility] Comment on above: Expected: 10/02/2024 , Expires: 01/01/2025 Start: 10-02-2024 End: 10-02-2025 OBSTETRIC ULTRASOUND WHI OBSTETRIC ULTRASOUND WHI Anc Imaging Routine 8 weeks gestation of ([facility]) Expected: 10/02/2024, Expires: 10/02/2025 [facility] Comment on above: Expected: 10/02/2024 , Expires: 10/02/2025 Start: 10-02-2024 End: 01-01-2025 RUBELLA IGG ANTIBODY RUBELLA IGG ANTIBODY Lab Routine with uncertain dates, antepartum ([facility]) Screen for STD (sexually transmitted disease) care, first in first trimester ([facility]) Expected: 10/02/2024, Expires: 01/01/2025 [facility] Comment on above: Expected: 10/02/2024 , Expires: 01/01/2025 Start: 10-02-2024 End: 01-01-2025 SYPHILIS TREPONEMAL W/REFLEX SYPHILIS TREPONEMAL W/REFLEX Lab Routine with uncertain dates, antepartum ([facility]) Screen for STD (sexually transmitted disease) care, first in first trimester ([facility]) Expected: 10/02/2024, Expires: 01/01/2025 [facility] Comment on above: Expected: 10/02/2024 , Expires: 01/01/2025 Start: 10-02-2024 End: 01-01-2025 TYPE + SCREEN TYPE + SCREEN Blood Bank Routine with uncertain dates, antepartum ([facility]) Screen for STD (sexually transmitted disease) care, first in first trimester ([facility]) Expected: 10/02/2024, Expires: 01/01/2025 [facility] Comment on above: Expected: 10/02/2024 , Expires: 01/01/2025 Start: 09-11-2024 End: 09-11-2024 Patient encounter procedure 09/11/2024 4:30 PM EDT Office Visit OB/Gynecology [address] [place] [address] Tika Pham APRN.COLLEGE OR [employer]IVERSITY FACULTY MEMBER [address] [place] [address] Discuss ordering quants OB/Gynecology Comment on above: Discuss ordering ruben nts Start: 01-30-2024 Covid-19 Vaccine () Covid-19 Vaccine () [facility] Start: 01-30-2024 Influenza vaccination Influenza Vacc ine (#1) [facility] Start: 05-31-2023 Behavioral Health Screening Behavioral Health Screening [facility] Start: 05-31-2023 Depression Assessment Depression Ass essment [facility] Start: 01-29-2023 Covid-19 Vaccine ( season) Covid-19 Vaccine () [facility] Start: 01-29-2023 Influenza vaccination [facility] Start: 11-14-2022 Lamotrigine measurement [facility] Start: 11-14-2022 Measurement of substance [facility] Start: 09-03-2022 Adult depression screening assessment DEPRESSION SCREENING [facility] Start: 08-06-2022 PAP TESTING PAP TESTING [facility] Start: 05-31-2022 DEPRESSION ASSESSMENT DEPRESSION ASS ESSMENT [facility] Start: 05-04-2022 End: 07-04-2022 25-hydroxyvitamin D3 [Mass/volume] in Serum or Plasma VITAMIN D 25 HYDROXY Lab Routine Memory problem Expected: 05/04/2022, Expires: 07/04/2022 [facility] Work Phone: Comment on above: Expected: 05/04/2022 , Expires: 07/04/2022 Start: 05-04-2022 End: 07-04-2022 Cobalamin (Vitamin B12) [Mass/volume] in Serum or Plasma VITAMIN B12 BLOOD Lab Routine Memory problem Expected: 05/04/2022, Expires: 07/04/2022 [facility] Work Phone: Comment on above: Expected: 05/04/2022 , Expires: 07/04/2022 Start: 05-04-2022 End: 07-04-2022 Thyrotropin [Units/volume] in Serum or Plasma TSH BLD Lab Routine Memory problem Expected: 05/04/2022, Expires: 07/04/2022 [facility] Work Phone: Comment on above: Expected: 05/04/2022 , Expires: 07/04/2022 Start: 05-04-2022 End: 07-04-2022 Thyroxine (T4) free [Mass/volume] in Serum or Plasma T4 FREE/FREE THYROX Lab Routine Memory problem Expected: 05/04/2022, Expires: 07/04/2022 [facility] Work Phone: Comment on above: Expected: 05/04/2022 , Expires: 07/04/2022 Start: 01-29-2022 Influenza vaccination C [facility] Start: 09-02-2021 Adult depression screening assessment DEPRESSION SCREENING [facility] Start: 05-31-2021 DEPRESSION ASSESSMENT DEPRESSION ASS ESSMENT [facility] Start: 01-23-2021 COVID-19 VACCINE (3 - Booster for Moderna series) COVID-19 VACCINE (3 - Booster for Moderna series) [facility] Start: 10-18-2020 COVID-19 VACCINE (3 - Booster for Moderna series) COVID-19 VACCINE (3 - Booster for Moderna series) [facility] [place] Start: 10-18-2020 COVID-19 VACCINE (3 - Moderna series) COVID-19 VACCINE (3 - Moderna series) [facility] Start: 2012 Depression Screening Depression Scre ening [facility] Start: 2012 HEPATITIS C SCREENING HEPATITIS C [facility] Start: 2012 Hepatitis C screening Hepatitis C [facility] Start: 2012 HIV SCREENING HIV SCREENING [facility] Start: 2012 HIV screening HIV Screening [facility] Start: 2005 Urine microalbumin profile [facility] Bacteria identified in Urine by Culture BACTERIAL CULTURE, URINE Microbiology Routine with uncertain dates, antepartum ([facility]) Screen for STD (sexually transmitted disease) care, first in first trimester ([facility]) 10/02/2024 3:21 PM T [facility] Chlamydia trachomatis+Neisseria gonorrhoeae DNA [Presence] in Unspecified specimen by ARIELLE with probe detection GONORRHEA/CHLAMYDIA NAAT Lab Routine with uncertain dates, antepartum ([facility]) Screen for STD (sexually transmitted disease) care, first in first trimester ([facility]) 10/02/2024 3:21 PM EDT [facility] End: 09-25-2024 Choriogonadotropin.beta subunit [Units/volume] in Serum or Plasma HCG QUANTITATIVE Lab Routine Positive test ([facility]) 2x per week for 8 Occurrences starting 09/11/2024 until 09/25/2024 [facility] Work Phone: Comment on above: 2x per week for 8 Oc currences starting 09/11/2024 until 09/25/2024 Choriogonadotropin.b eta subunit [Units/volume] in Serum or Plasma HCG QUANTITATIVE Lab Routine Positive test ([facility]) 09/11/2024 2:47 PM [facility] End: 10-27-2025 lamoTRIgine [Mass/volume] in Serum or Plasma LAMOTRIGINE Lab Routine Generalized convulsive epilepsy ([facility]) Once per month for 10 Occurrences starting 10/27/2024 until 10/27/2025 [facility] Comment on above: Once per month for 1 0 Occurrences starting 10/27/2024 until 10/27/2025 lamoTRIgine [Mass/volume] in Serum or Plasma LAMOTRIGINE Lab Routine Generalized epilepsy (HCC) 10/26/2024 7:35 AM T [facility] End: 10-27-2025 levETIRAcetam [Mass/volume] in Serum or Plasma LEVETIRACETAM Lab Routine Generalized convulsive epilepsy (HCC) Once per month for 10 Occurrences starting 10/27/2024 until 10/27/2025 [facility] Work Phone: Comment on above: Once per month for 1 0 Occurrences starting 10/27/2024 until 10/27/2025 End: 05-20-2025 OBSTETRIC ULTRASOUND WHI OBSTETRIC ULTRASOUND WHI Anc Imaging Routine Supervision of high risk in first trimester (HCC) 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) Once per month for 6 Occurrences starting 11/01/2024 until 05/20/2025 [facility] Comment on above: Once per month for 6 Occurrences starting 11/01/2024 until 05/20/2025 PAP FLUID CERVICAL SCREENING PAP FLUID CERVICAL SCREENING Lab Routine Encounter for gynecological examination (general) (routine) without abnormal findings Screening for cervical cancer Ordered: 04/03/2022 [facility] Work Phone: Comment on above: Ordered: 04/03/2022 PAP TEST PAP TEST Lab Rou noe with uncertain dates, antepartum ([facility]) Screen for STD (sexually transmitted disease) care, first in first trimester ([facility]) 10/02/2024 3:21 PM EDT [facility] Removal intrauterine device iud REMOVE INTRAUTERINE DEVICE Procedures Routine Encounter for IUD removal Ordered: 01/11/2024 [facility] Work Phone: Comment on above: Ordered: 01/11/2024 TRICHOMONAS VAGINALI S NAAT TRICHOMONAS VAGINALIS NAAT Lab Routine Screen for STD (sexually transmitted disease) 10/02/2024 3:21 PM EDT [facility] c [facility] Immunizations Immunization Date Immunization Notes Care Provider [facility] 04-28-2023 influenza virus vaccine, unspecified formulation Juan Hood Jr., MD Work Phone: [facility] 08-23-2020 COVID-19 vaccine, fu ll dose (MODERNA) Shelley Davis VETERINARIAN SMALL ANIMAL.COLLEGE OR UNIVERSITY FACULTY MEMBER Work Phone: [facility] 07-26-2020 COVID-19 vaccine, fu ll dose (MODERNA) Shelley Davis VETERINARIAN SMALL ANIMAL.COLLEGE OR UNIVERSITY FACULTY MEMBER Work Phone: [facility] 12-27-2006 varicella virus vaccine Marisela Davis VETERINARIAN SMALL ANIMAL.COLLEGE OR UNIVERSITY FACULTY MEMBER Work Phone: [facility] 08-16-1999 varicella virus vaccine Marisela Davis VETERINARIAN SMALL ANIMAL.COLLEGE OR UNIVERSITY FACULTY MEMBER Work Phone: [facility] 08-09-1999 diphtheria, tetanus toxoids and acellular pertussis vaccine, unspecified formulation Shelley Davis VETERINARIAN SMALL ANIMAL.COLLEGE OR UNIVERSITY FACULTY MEMBER Work Phone: [facility] 08-09-1999 hepatitis B vaccine, pediatric or pediatric/adolescent dosage Shelley Davis VETERINARIAN SMALL ANIMAL.COLLEGE OR UNIVERSITY FACULTY MEMBER Work Phone: [facility] 08-09-1999 measles, mumps and rubella virus vaccine Shelley Banksenbeck VETERINARIAN SMALL ANIMAL.COLLEGE OR UNIVERSITY FACULTY MEMBER Work Phone: [facility] 08-09-1999 poliovirus vaccine, unspecified formulation Shelley Banksenbeck VETERINARIAN SMALL ANIMAL.COLLEGE OR UNIVERSITY FACULTY MEMBER Work Phone: [facility] 10-22-1998 hepatitis B vaccine, pediatric or pediatric/adolescent dosage Shelley Banksenbeck VETERINARIAN SMALL ANIMAL.COLLEGE OR UNIVERSITY FACULTY MEMBER Work Phone: [facility] 01-12-1997 hepatitis B vaccine, pediatric or pediatric/adolescent dosage Shelley Banksenbeck VETERINARIAN SMALL ANIMAL.COLLEGE OR UNIVERSITY FACULTY MEMBER Work Phone: [facility] 10-22-1996 hepatitis B vaccine, pediatric or pediatric/adolescent dosage Shelley Banksenbeck VETERINARIAN SMALL ANIMAL.COLLEGE OR UNIVERSITY FACULTY MEMBER Work Phone: [facility] 11-09-1995 diphtheria, tetanus toxoids and acellular pertussis vaccine, unspecified formulation Shelley Davis VETERINARIAN SMALL ANIMAL.COLLEGE OR UNIVERSITY FACULTY MEMBER Work Phone: [facility] 11-09-1995 haemophilus influenz ae type b vaccine, conjugate unspecified formulation Shelley Davis VETERINARIAN SMALL ANIMAL.COLLEGE OR UNIVERSITY FACULTY MEMBER Work Phone: [facility] 07-19-1995 measles, mumps and rubella virus vaccine Shelley Banksenbarby VETERINARIAN SMALL ANIMAL.COLLEGE OR UNIVERSITY FACULTY MEMBER Work Phone: [facility] 1994 diphtheria, tetanus toxoids and acellular pertussis vaccine, unspecified formulation Shelley Banksenbeck VETERINARIAN SMALL ANIMAL.COLLEGE OR UNIVERSITY FACULTY MEMBER Work Phone: [facility] 1994 haemophilus influenz ae type b vaccine, conjugate unspecified formulation Shelley Banksenbeck VETERINARIAN SMALL ANIMAL.COLLEGE OR UNIVERSITY FACULTY MEMBER Work Phone: [facility] 1994 poliovirus vaccine, unspecified formulation Shelley Davis VETERINARIAN SMALL ANIMAL.COLLEGE OR UNIVERSITY FACULTY MEMBER Work Phone: [facility] 1994 diphtheria, tetanus toxoids and acellular pertussis vaccine, unspecified formulation Shelley Davis VETERINARIAN SMALL ANIMAL.COLLEGE OR UNIVERSITY FACULTY MEMBER Work Phone: [facility] 1994 haemophilus influenz ae type b vaccine, conjugate unspecified formulation Shelley Banksenbarby VETERINARIAN SMALL ANIMAL.COLLEGE OR UNIVERSITY FACULTY MEMBER Work Phone: [facility] 1994 poliovirus vaccine, unspecified formulation Shelley Banksenbeck VETERINARIAN SMALL ANIMAL.COLLEGE OR UNIVERSITY FACULTY MEMBER Work Phone: [facility] 1994 diphtheria, tetanus toxoids and acellular pertussis vaccine, unspecified formulation Shelley Banksenbeck VETERINARIAN SMALL ANIMAL.COLLEGE OR UNIVERSITY FACULTY MEMBER Work Phone: [facility] 1994 haemophilus influenz ae type b vaccine, conjugate unspecified formulation Shelley Davis VETERINARIAN SMALL ANIMAL.COLLEGE OR UNIVERSITY FACULTY MEMBER Work Phone: [facility] 1994 poliovirus vaccine, unspecified formulation Shelley Davis VETERINARIAN SMALL ANIMAL.COLLEGE OR UNIVERSITY FACULTY MEMBER Work Phone: [facility] Payers Date Payer Category Payer Unknown [id number] 2022 Self-pay [id number] 2020 Private Health Insurance [employer] [id number] 2020 Unknown [employer] PPO [id number] 2020-Present [phone] [address] [place] [address] PPO [id number] 2020 Unknown [employer] PPO [id number] 2020-Present [phone] [address] [place] [address] PPO [id number] 2020 Unknown [id number] 2013 Unknown [id number] [facility] [id number] Unknown [id number] Unknown [id number] Unknown [id number] Unknown [id number] Unknown [id number] Social History Date Type Detail Facility Start: 11-06-2022 Tobacco smoking status NHIS Never smoked tobacco [facility] Start: 04-21-2021 End: 01-22-2025 Alcohol intake Current drinker of alcohol (finding) [facility] Start: 08-07-2019 History SDOH Social Connections Phone 5 [facility] Start: 08-07-2019 History SDOH Social Connections Get Together 2 [facility] Start: 08-07-2019 History SDOH Social Connections Jain 1 [facility] Start: 08-07-2019 History SDOH Social Connections Living 8 [facility] Start: 08-07-2019 History SDOH Physical Activity MPS 6 [facility] Start: 08-07-2019 History SDOH Stress 4 [facility] Start: 08-07-2019 Education 17 [facility] Start: 1994 Sex Assigned At Female [facility] Start: 08-22-2021 End: 04-03-2022 Exposure to SARS-CoV-2 (event) Not sure [facility] Start: 10-08-2017 End: 10-08-2017 Tobacco smoking status NHIS Unknown if ever smoked [facility] Start: 11-06-2022 Tobacco use and exposure Smokeless tobacco non-user [facility] Start: 11-06-2022 End: 09-13-2024 History of Social function [facility] Start: 11-06-2022 End: 09-13-2024 Tobacco use panel [facility] Start: 05-01-2012 Adult Depression Screening Assessment 1 [facility] Start: 09-01-2020 Gender identity Identifies as female gender (finding) [facility] Start: 09-01-2020 Sexual orientation Heterosexual (finding) [facility] Do you belong to any clubs or organizations such as episcopal groups, unions, fraternal or athletic groups, or school groups? No [facility] Work Phone: Are you now , , , , never or living with a partner? Living with partner [facility] Work Phone: Do you feel stress - tense, restless, nervous, or anxious, or unable to sleep at night because your mind is troubled all the time - these days [OSQ] Rather much [facility] Work Phone: (I/We) worried wheth er (my/our) food would run out before (I/we) got money to buy more. Never true [facility] Work Phone: Start: 08-18-2024 [facility] Goals Date Patient Goal Desired Activity /State Personal health goal Clinical Notes 09-01-2021 to 03-19-2025 Telephone Encounter - Shelley Davis APRN.COLLEGE OR UNIVERSITY FACULTY MEMBER - 02/14/2025 1:31 PM EDTTelephone Encounter - Shelley Davis, VETERINARIAN SMALL ANIMAL.COLLEGE OR UNIVERSITY FACULTY MEMBER - 02/14/2025 1:31 PM EDTPatient InstructionsPatient Instructions Note Date & Type Note Facility 03-19-2025 Note HNO ID: [id number] Author: BUZZ CARRANZA MD Service: ? Author Type: Physician Type: Progress Notes Filed: 03/19/2025 17:45 Note Text: SW- Pt doing well. No CYR, vision changes, pain, vb, lof. Good FM PE: Gen- NAD, well appearing Abd- Gravid See flowsheet A/p 32 wk gestation - A1GDM: BG log reviewed and well controlled with diet. Growth US today and final report pending. Repeat growth US in 4 weeks. Discussed importance of blood glucose control in - RSV vaccine today - RTO 2 wks Buzz Carranza DO [facility] 03-14-2025 Note HNO ID: [id number] Author: MARY ANN SALEEM RN Service: ? Author Type: Registered Nurse Type: Progress Notes Filed: 03/14/2025 15:31 Note Text: DIABETES SELF-MANAGEMENT EDUCATION AND SUPPORT Location: [place] Type of visit: Virtual (with video) individual -- I have communicated my name and active licensure. The patient's identity and physical location were verified at the time of this visit. Either the patient or their legal event marketing representative has been informed of the risks and benefits of -- and alternatives to -- treatment through a remote evaluation and consents to proceed with the evaluation remotely. Types of DSMES: Initial/Comprehensive (add to or update ADA spreadsheet) PATIENT'S MAIN CONCERN TODAY: not sure Support person present for education today: none Cognitive ability: Alert and oriented Motivation to learn: Interested Learning barriers identified by educator: none Method of instruction: written, verbal, and demonstration INTERVENTIONS/TOPICS COVERED: -Diabetes Pathophysiology: gestational diabetes basics -Monitoring: BG targets, rationale for HGM, and using a home glucose monitor -Healthy Eating: impact of carbs on BG, Plate Method, foods with carbs, and reading food labels -Medications: use of insulin if sugars are elevated -Physical Activity: benefits of exercise and impact of exercise on BG -Acute Complications: hypoglycemia s/sx/tx, hyperglycemia s/sx/tx, and sick day rules -Chronic Complications: importance of BG control to reduce risks and risks to mom and baby with elevated blood sugars during -Healthy Coping and Support: impact of stress on BG DIABETES ASSESSMENT: Referring Physician: Luba Kee Previous Diabetes Education? No What are you hoping to gain from this visit? asked/not answered In your words, what is gestational diabetes? asked/not answered What concerns you about having gestational diabetes? asked/not answered Diabetes History: Type of Diabetes: Gestational ( diabetes in ) How far along is your ? Weeks: 31 Does anyone in your family have diabetes? 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 No self-identified issues Health History: Do you use tobacco? No Do you use alcohol? No In the past 12 months have you had any: Hospital Admissions: No ER Visits: No Primary Care Visits: no What are your general feelings about you overall health? Fair Medical Issues/Complications: To whom are you reporting your blood sugar levels? OB PAST MEDICAL HISTORY Diagnosis Date Epilepsy (HCC) Esophageal spasm Occurs d/t food allergies. Had EGD with balweslying 2017. Narcolepsy (HCC) Most recent A1C Lab Results Component Value Date HBA1C 4.6 10/30/2024 Physical Activity: Do you do a regular exercise? Yes; how many days per week 5+ How long each day? 30-60 min Type of Exercise: walking Sleep: Do you get at least 7 hrs of sleep most nights? yes Current Outpatient Medications Medication Sig Breast Pump Use as directed blood sugar diagnostic test strip Use as directed to check glucose levels up to seven times daily. Lancets Use as directed to check glucose levels up to seven times daily. alcohol swabs (ALCOHOL PREP PADS) Use as directed to check glucose levels up to seven times daily. ondansetron (ZOFRAN) 4 mg tablet Take 1 tablet by mouth every 8 hours as needed for nausea/vomiting. blood sugar diagnostic test strip Use as directed to check glucose levels up to seven times daily. Lancets Use as directed to check glucose levels up to seven times daily. lamoTRIgine ER (LAMICTAL XR) 250 mg 24 hr tablet Take 1 tablet by mouth twice daily. levETIRAcetam (KEPPRA) 1,000 mg tablet Take 2 tablets by mouth every morning AND 2.5 tablets daily at bedtime. folic acid 1 mg tablet Take 2 tablets by mouth once daily. aspirin, enteric coated (ECOTRIN LOW STRENGTH) 81 mg EC tablet Take 1 tablet by mouth once daily. pantoprazole DR (PROTONIX) 40 mg tablet Take 40 mg by mouth once daily. vit/iron fum/folic ac ( 1 + 1 ORAL) Take by mouth once daily. No current facility-administered medications for this visit. Injections Technique: Do you take insulin or a medication you inject for your diabetes? No Blood Sugar Monitoring: Do you have a blood sugar monitor? Yes How often do you check? 4x When you check? before breakfast and other 1 hour after. Management of Low Blood Sugar: What has been your lowest blood sugar in the last month? 68 at the (more content not included)... [facility] 02-21-2025 Note HNO ID: [id number] Author: LUBA JAMES MD Service: ? Author Type: Physician Type: Progress Notes Filed: 02/21/2025 17:03 Note Text: Patient identified by name and date of . [facility] 02-21-2025 Note HNO ID: [id number] Author: LUBA JAMES MD Service: ? Author Type: Physician Type: Progress Notes Filed: 02/21/2025 17:03 Note Text: DM-Pt doing well. Denies vaginal Bleeding, Leaking fluid, or regular Contractions. Pt reports good movement Physical Exam: Gen: female in no apparent distress Abd: soft, Gravid. Non tender to palpation. See flow sheet @ 28.5 weeks Assessment AND Plan Supervision of high risk in second trimester (HCC) History of epilepsy Stable- sees neurology once per year on keppra and lamictal Generalized convulsive epilepsy (HCC) 28 weeks gestation of (HCC) RTO 2 wks 28 week labs pending Kick counts reviewed Growth us pending today LARC form signed and declined Tdap and Flu today Need for vaccination Orders: TDAP VACCINE, AGE 7+ YR (ADACEL, BOOSTRIX) Need for influenza vaccination Orders: INFLUENZA VACCINE, PRSV FREE, AGE 6MO-64YR, TRIVALENT (AFLURIA, FLUARIX, FLULAVAL, FLUVIRIN, FLUZONE) Supervision of high risk , antepartum (HCC) Luba Orellana MD [facility] 02-14-2025 Telephone encounter Note The following approved medication requests have been transmitted electronically. Requested Prescriptions Signed Prescriptions Disp Refills lamoTRIgine ER (LAMICTAL XR) 250 mg 24 hr tablet 180 tablet 1 Sig: Take 1 tablet by mouth twice daily. Authorizing Provider: SHELLEY DAVIS APRN.CNP [facility] 02-14-2025 Miscellaneous Notes The following approved medication requests have been transmitted electronically. Requested Prescriptions Signed Prescriptions Disp Refills lamoTRIgine ER (LAMICTAL XR) 250 mg 24 hr tablet 180 tablet 1 Sig: Take 1 tablet by mouth twice daily. Authorizing Provider: SHELLEY DAVIS APRN.CNP Prescription Refill: Requested by: pharmacy Please E-Scribe Caller Contact Number: Pharmacy Name: [facility] Pharmacy Number: [phone] Generic/ brand: 30 or 90 day supply requested: 90 Last appointment: 10/25/24 Next Appointment: none Patient of Dr. Sheryl Johnson [id number] [address] [facility] [address] documented in this encounter [facility] 02-12-2025 Telephone encounter Note Prescription Refill: Requested by: pharmacy Please E-Scribe Caller Contact Number: Pharmacy Name: [facility] Pharmacy Number: [phone] Generic/ brand: 30 or 90 day supply requested: 90 Last appointment: 10/25/24 Next Appointment: none Patient of Dr. Sheryl Johnson [id number] [address] [facility] [address] [facility] 02-01-2025 Telephone encounter Note Patient agreeable, stated she hasn't had seizures in years. Routed to [facility] for FYI. Lily Zapata RN [facility] 02-01-2025 Miscellaneous Notes Patient agreeable, stated she hasn't had seizures in years. Routed to [facility] for FYI. Lily Zapata RN Unable to reach patient by phone, left . message with recommendations. Lily Zapata RN December labs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 Had EGD with balweslying 2017. Narcolepsy (HCC) PAST SURGICAL HISTORY Procedure Laterality Date INSERTION OF IUD 05/29/2019 PAST SURGICAL HISTORY OF 2018 Upper GI Surgery /BALOONING TONSILLECTOMY HX Current Outpatient Medications Medication Sig Dispense Refill pantoprazole DR (PROTONIX) 40 mg tablet Take 40 mg by mouth once daily. vit/iron fum/folic ac ( 1 + 1 ORAL) Take by mouth once daily. lamoTRIgine ER (LAMICTAL XR) 100 mg 24 hr tablet Take 1 tablet by mouth two times a day. Take with 50 mg tablets for total of 150 mg twice daily 180 tablet 3 lamoTRIgine ER (LAMICTAL XR) 50 mg 24 hr tablet Take 1 tablet by mouth two times a day. Take with 100 mg tablets for total of 150 mg twice daily 180 tablet 3 levETIRAcetam (KEPPRA) 1,000 mg tablet Take 1 tablet by mouth two times a day. 180 tablet 3 folic acid 1 mg tablet Take 2 tablets by mouth once daily. 180 tablet 3 aspirin, enteric coated (ECOTRIN LOW STRENGTH) 81 mg EC tablet Take 1 tablet by mouth once daily. 90 tablet 3 No current facility-administered medications for this visit. Allergies As of Date: 10/02/2024 Allergen Noted Reaction ALMOND 08/07/2019 Shortness of Breath BARLEY 04/18/2018 Shortness of Breath SINGLETARY 07/03/2019 Shortness of Breath BEEF CONTAINING PRODUCTS 04/18/2018 Shortness of Breath CABBAGE 04/18/2018 Shortness of Breath CHICKEN DERIVED 07/03/2019 Shortness of Breath DAIRY AID [LACTASE] 04/18/2018 Shortness of Breath EGG 04/18/2018 Shortness of Breath GLUTEN 07/03/2019 Shortness of Breath OATS 04/18/2018 Shortness of Breath PEANUTS 04/18/2018 Shortness of Breath PEAS 07/03/2019 Shortness of Breath SOY 04/18/2018 Shortness of Breath TOMATOES 04/18/2018 Shortness of Breath WHEAT, WHEAT GERM 04/18/2018 Shortness of Breath Fully Assessed 10/02/2024 Does patient have penicillin allergy: No REVIEW OF SYSTEMS: GENERAL: Negative for: Fever or Chills HEENT: Negative for: Headache, Impaired Vision, Ringing in Ears, Nosebleeds NECK: Negative for: Swelling, Pain, Stiffness RESPIRATORY: Negative for: Cough, Shortness of breath, Wheezing GASTROINTESTINAL: Negative for: Heartburn, Constipation, Diarrhea, Blood in stool, Vomiting MUSCULOSKELETAL: Negative for: Muscle or joint pain, stiffness, Joint swelling NEUROLOGIC/PSYCHIATRIC: Negative for: Weakness, Paralysis, Numbness, Tingling, Tremor, Anxiety, Depression, Memory loss SKIN: Negative for: Rash, Itching GENITOURINARY: Negative for: vaginal itching, vaginal discharge, hematuria or dysuria SENSITIVE EXAM: The sensitive examination was discussed with the Patient or Patient's Authorized Inpatient Nursing Aide. As applicable, any other physician, advance practice provider, medical student, or other health professional student that will be observing or involved in the sensitive examination for educational or training purposes was discussed with the Patient or Authorized Inpatient Nursing Aide. The Patient or Authorized Inpatient Nursing Aide has agreed to proceed with the sensitive examination. (Sensitive examination includes inspection and/or palpation of the breasts, pelvis, prostate and anorectal regions). PHYSICAL EXAM: BP 118/64 Ht 5' 2 (1.58m) Wt 119 lb 3.2 oz (54.1kg) LMP 08/04/2024 BMI 21.80 kg/(m^2). GENERAL: pleasant in no apparent distress DERMATOLOGY: Normal, without lesions, non-icteric, and non-hirsute NECK: Supple, full range of motion, no adenopathy, and thyroid normal CHEST: Normal inspiratory effort BREAST: soft, non-tender, symmetric, no dominant mass, normal nipple-areolar complex, no lymphadenopathy, and no nipple discharge ABDOMEN: soft, non-tender, and no masses NEURO: alert and oriented x3,exam grossly non-focal PELVIS: External genitalia normal without lesions. Perineal body intact. No vaginal or cervical lesions. Cervix closed. No adnexal masses or tenderness. Clinical Pelvimetry: Pelvimetry clinically assessed as adequate Limited OB ultrasound exam: single intrauterine and POCUS performed. +cardiac activity, CRL consistent with LMP. Tika Pham, BRY.COLLEGE OR UNIVERSITY FACULTY MEMBER ASSESSMENT: 29 year old at 8w3d wks gestational age PLAN: 1) Patient oriented to practice. Patient given new OB orientation folder. Discussed nutrition, folic acid supplementation, dietary guidelines, exercise, smoking, alcohol, caffeine, and drug use. Discussed gestational weight gain guidelines. Discussed routine OB labs including STD/HIV. Discussed how to access Your guide to a health and the Salvage Inspector. Reviewed midwifery and driver/sales workers services that are available. 2) Screening: Hemoglobin A1C: ordered Baby Aspirin: The patient has been counseled about the potential benefits of low dose aspirin in and our recommendation that this be offered to all patients, regardless of whether they meet the high risk criteria specified above. She Accepts Aneuploidy Screening: Discussed aneuploidy screening, nuchal translucency/first trimester early anatomy ultrasound and NIPT. The risks/benefits and limitations of NIPT/aneuploidy screening were reviewed including the potential for false negative and false positive results. The availability of genetic counseling was reviewed. Information on aneuploidy screening was provided. The patient chooses to proceed with First trimester early anatomy ultrasound (12-13w6d) Myriad Carrier Screening: Discussed myriad carrier screening. We discussed the availability of professional-society guided carrier screening and reviewed the conditions screened and limitations of screening. The availability of genetic counseling was reviewed. Information on carrier screening was provided. The patient Declines 3) Patient offered option of Virtual Visits. Patient unsure. May consider in future. 4) Hx of seizures Follow up in 4 weeks or sooner prn. Tika Pham APRN.CEE documented in this encounter [facility] 09-14-2024 Telephone encounter Note Patient notified. NOB scheduled. Mery Toribio RN [facility] 09-14-2024 Miscellaneous Notes Patient notified. NOB scheduled. Mery Toribio RN documented in this encounter [facility] 09-11-2024 Note HNO ID: [id number] Author: ROMELIA SURESH APRN.CNM Service: ? Author Type: Bricklayer'S Assistant Type: Progress Notes Filed: 09/13/2024 07:50 Note Text: See previous progress note. Romelia Suresh APRN.CNM [facility] 09-11-2024 Note HNO ID: [id number] Author: ROMELIA SURESH APRN.KENNY Service: ? Author Type: Bricklayer'S Assistant Type: Progress Notes Filed: 09/11/2024 10:01 Note Text: VIRTUAL VISIT PROGRESS NOTE This is a virtual visit using [employer] Zoom Video Visit. It required patient-provider interaction for the medical decision making as documented below. I have communicated my name and active licensure. The patient's identity and physical location were verified at the time of this visit. Either the patient or their legal event marketing representative has been informed of the risks and benefits of -- and alternatives to -- treatment through a remote evaluation and consents to proceed with the evaluation remotely. Lynsey Johnson is a 29 year old female seen for spotting. Patient stated LMP 08/29/24-09/02/24 which she reports as a normal period. She has continued to spot with some cramping. She took a test last weekend and it was positive. She denies current pain or bleeding today. Last cycle was 08/04/24. Patient is unsure if she is really . Wondering if occurred after 08/04/24 cycle. She desires . HISTORY REVIEWED (electronic chart updated): PAST MEDICAL HISTORY Diagnosis Date Epilepsy (HCC) Esophageal spasm Occurs d/t food allergies. Had EGD with balooning 2017. Narcolepsy PAST SURGICAL HISTORY Procedure Laterality Date INSERTION OF IUD 05/29/2019 PAST SURGICAL HISTORY OF 2018 Upper GI Surgery /BALOONING TONSILLECTOMY HX No family history on file. Social History Tobacco Use Smoking status: Never Smokeless tobacco: Never Vaping Use Vaping status: Some Days Substances: CBD Substance Use Topics Alcohol use: Yes Drug use: Yes Types: Marijuana Comment: Delta 8 Current Outpatient Medications Medication Sig clonazePAM orally disintegrating (KLONOPIN WAFER) 0.5 mg disintegrating tablet Take one tablet by mouth as needed at the onset of a seizure. Do not exceed more than 2 doses in 24 hours. lamoTRIgine ER (LAMICTAL XR) 100 mg 24 hr tablet Take 1 tablet by mouth two times a day. Take with 50 mg tablets for total of 150 mg twice daily lamoTRIgine ER (LAMICTAL XR) 50 mg 24 hr tablet Take 1 tablet by mouth two times a day. Take with 100 mg tablets for total of 150 mg twice daily levETIRAcetam (KEPPRA) 1,000 mg tablet Take 1 tablet by mouth two times a day. folic acid 1 mg tablet Take 2 tablets by mouth once daily. No current facility-administered medications for this visit. ALLERGIES Allergen Reactions [place] Shortness of Breath Pt with EOE Barley Shortness of Breath Patient diagnosed with Eosinophilic esophagitis Singletary Shortness of Breath Beef Containing Pro* Shortness of Breath Patient diagnosed with EOE Cabbage Shortness of Breath Patient diagnosed with EOE Chicken Derived Shortness of Breath Dairy Aid [Lactase] Shortness of Breath Patient diagnosed with EOE Egg Shortness of Breath Patient diagnosed with EOE Gluten Shortness of Breath Oats Shortness of Breath Patient diagnosed with EOE Peanuts Shortness of Breath Patient diagnosed with EOE All nuts except cashews Peas Shortness of Breath Soy Shortness of Breath Patient diagnosed with EOE Tomatoes Shortness of Breath Patient diagnosed with EOE Wheat, Wheat Germ Shortness of Breath Patient diagnosed with EOE REVIEW OF SYSTEMS: GENERAL: feeling well without fatigue, activity level is normal PMP: no vaginal discharge, Dark brown spotting off and on PSYCH: sleep is normal PHYSICAL EXAMINATION: VIDEO EXAM: (if completed, performed via video enabled technology) GENERAL: alert and appropriate, in no distress NEUROLOGIC: no obvious deficit ASSESSMENT: (Z32.01) Positive test (HCC) (primary encounter diagnosis) - Serial HCG serum levels - Bleeding / Miscarriage precautions reviewed - Support provided - Will follow up with patient after results .Romelia Suresh APRN.CNM I spent a total of 10 minutes on the date of the service which included completing clinical documentation, obtaining and/or reviewing separately obtained history, counseling and educating the patient/family/caregiver, and ordering medications, tests, or procedures Romelia Suresh APRN.CNM [facility] 09-11-2024 History of Presen t illness Narrative VIRTUAL VISIT PROGRESS NOTE This is a virtual visit using [employer] Video Visit. It required patient-provider interaction for the medical decision making as documented below. I have communicated my name and active licensure. The patient's identity and physical location were verified at the time of this visit. Either the patient or their legal event marketing representative has been informed of the risks and benefits of -- and alternatives to -- treatment through a remote evaluation and consents to proceed with the evaluation remotely. Lynsey Johnson is a 29 year old female seen for spotting. Patient stated LMP 08/29/24-09/02/24 which she reports as a normal period. She has continued to spot with some cramping. She took a test last weekend and it was positive. She denies current pain or bleeding today. Last cycle was 08/04/24. Patient is unsure if she is really . Wondering if occurred after 08/04/24 cycle. She desires . HISTORY REVIEWED (electronic chart updated): PAST MEDICAL HISTORY Diagnosis Date Epilepsy (HCC) Esophageal spasm Occurs d/t food allergies. Had EGD with balooning 2017. Narcolepsy PAST SURGICAL HISTORY Procedure Laterality Date INSERTION OF IUD 05/29/2019 PAST SURGICAL HISTORY OF 2018 Upper GI Surgery /BALOONING TONSILLECTOMY HX No family history on file. Social History Tobacco Use Smoking status: Never Smokeless tobacco: Never Vaping Use Vaping status: Some Days Substances: CBD Substance Use Topics Alcohol use: Yes Drug use: Yes Types: Marijuana Comment: Delta 8 Current Outpatient Medications Medication Sig clonazePAM orally disintegrating (KLONOPIN WAFER) 0.5 mg disintegrating tablet Take one tablet by mouth as needed at the onset of a seizure. Do not exceed more than 2 doses in 24 hours. lamoTRIgine ER (LAMICTAL XR) 100 mg 24 hr tablet Take 1 tablet by mouth two times a day. Take with 50 mg tablets for total of 150 mg twice daily lamoTRIgine ER (LAMICTAL XR) 50 mg 24 hr tablet Take 1 tablet by mouth two times a day. Take with 100 mg tablets for total of 150 mg twice daily levETIRAcetam (KEPPRA) 1,000 mg tablet Take 1 tablet by mouth two times a day. folic acid 1 mg tablet Take 2 tablets by mouth once daily. No current facility-administered medications for this visit. ALLERGIES Allergen Reactions [place] Shortness of Breath Pt with EOE Barley Shortness of Breath Patient diagnosed with Eosinophilic esophagitis Singletary Shortness of Breath Beef Containing Pro* Shortness of Breath Patient diagnosed with EOE Cabbage Shortness of Breath Patient diagnosed with EOE Chicken Derived Shortness of Breath Dairy Aid [Lactase] Shortness of Breath Patient diagnosed with EOE Egg Shortness of Breath Patient diagnosed with EOE Gluten Shortness of Breath Oats Shortness of Breath Patient diagnosed with EOE Peanuts Shortness of Breath Patient diagnosed with EOE All nuts except cashews Peas Shortness of Breath Soy Shortness of Breath Patient diagnosed with EOE Tomatoes Shortness of Breath Patient diagnosed with EOE Wheat, Wheat Germ Shortness of Breath Patient diagnosed with EOE REVIEW OF SYSTEMS: GENERAL: feeling well without fatigue, activity level is normal PMP: no vaginal discharge, Dark brown spotting off and on PSYCH: sleep is normal PHYSICAL EXAMINATION: VIDEO EXAM: (if completed, performed via video enabled technology) GENERAL: alert and appropriate, in no distress NEUROLOGIC: no obvious deficit ASSESSMENT: (Z32.01) Positive test (HCC) (primary encounter diagnosis) - Serial HCG serum levels - Bleeding / Miscarriage precautions reviewed - Support provided - Will follow up with patient after results .Romelia Suresh APRN.CNM I spent a total of 10 minutes on the date of the service which included completing clinical documentation, obtaining and/or reviewing separately obtained history, counseling and educating the patient/family/caregiver, and ordering medications, tests, or procedures Romelia Suresh APRN.CNM documented in this encounter [facility] 09-08-2024 Telephone encounter Note Patient notified and voiced understanding. Virtual visit scheduled. Bleeding precautions reviewed. Marjorie Barreto RN [facility] 09-08-2024 Miscellaneous Notes Patient notified and voiced understanding. Virtual visit scheduled. Bleeding precautions reviewed. Marjorie Barreto RN Yes. I believe that is how they would like to do it for those that haven't had a recent appointment Patient called stating that she had a normal menses last month that began on 08/04/2024 and lasted 5 days. Patient reports that she began bleeding again on 08/29/2024 and had bleeding X 5 days that was like a normal menses then has had brownish colored spotting since. Patient assumed the bleeding on 08/29 was her menses but took 3 tests d/t the prolonged brownish spotting and tests came back positive. Patient denies cramping, no c/o pelvic or lower back pain. first . Does patient need a virtual appointment to have hcg quants ordered? documented in this encounter [facility] 09-08-2024 Telephone encounter Note Yes. I believe that is how they would like to do it for those that haven't had a recent appointment [facility] Work Phone: 09-08-2024 Telephone encounter Note Patient called stating that she had a normal menses last month that began on 08/04/2024 and lasted 5 days. Patient reports that she began bleeding again on 08/29/2024 and had bleeding X 5 days that was like a normal menses then has had brownish colored spotting since. Patient assumed the bleeding on 08/29 was her menses but took 3 tests d/t the prolonged brownish spotting and tests came back positive. Patient denies cramping, no c/o pelvic or lower back pain. first . Does patient need a virtual appointment to have hcg quants ordered? [facility] 07-10-2024 History of Presen t illness Narrative Radiology Service Progress Note PATIENT NAME: Lynsey Johnson DATE OF SERVICE: July 10, 2024 TIME: 3:47 PM PATIENT IDENTITY VERIFICATION COMPLETED USING TWO (2) IDENTIFIERS: Name and Date of confirmed by patient verbally. FALL SCREENING: Has the patient had 2 falls in the last year or 1 fall with injury or currently using an Ambulatory Assistive Device (Walker, Cane, Wheelchair, Crutches, etc.)? No PATIENT GENDER DATA: Assigned female at . status: : No status: NO. PATIENT RELEVANT IMPLANT DATA REVIEWED: Not Applicable PATIENT PRESENTS WITH AN IMPLANTABLE OR ATTACHED SAMPLER AND TEST PREPARER: No RADIOLOGY DEPARTMENT: General X-ray: Exam(s) Completed: Chest X-Ray PERIPHERAL IV DATA: Not applicable SIGNED BY: Marya Lee July 10, 2024 3:47 PM documented in this encounter [facility] 07-10-2024 Note HNO ID: [id number] Author: JULISSA CAMERON Tech Service: ? Author Type: Technologist Type: Progress Notes Filed: 07/10/2024 15:47 Note Text: Radiology Service Progress Note PATIENT NAME: Lynsey Johnson DATE OF SERVICE: July 10, 2024 TIME: 3:47 PM PATIENT IDENTITY VERIFICATION COMPLETED USING TWO (2) IDENTIFIERS: Name and Date of confirmed by patient verbally. FALL SCREENING: Has the patient had 2 falls in the last year or 1 fall with injury or currently using an Ambulatory Assistive Device (Walker, Cane, Wheelchair, Crutches, etc.)? No PATIENT GENDER DATA: Assigned female at . status: : No status: NO. PATIENT RELEVANT IMPLANT DATA REVIEWED: Not Applicable PATIENT PRESENTS WITH AN IMPLANTABLE OR ATTACHED SAMPLER AND TEST PREPARER: No RADIOLOGY DEPARTMENT: General X-ray: Exam(s) Completed: Chest X-Ray PERIPHERAL IV DATA: Not applicable SIGNED BY: Marya Lee July 10, 2024 3:47 PM [facility] 07-10-2024 Note HNO ID: [id number] Author: KRYSTA SANCHES APRN.COLLEGE OR UNIVERSITY FACULTY MEMBER Service: ? Author Type: Nurse Practitioner Type: Progress Notes Filed: 07/10/2024 15:55 Note Text: CC: Patient presents with: Cough: CYR, sinus, fever x 3 weeks HPI: Lynsey Johnson is a 29 year old female who presents to the office with complaint of cough, nonproductive and sinus symptoms for 5 days. Symptoms are staying the same. Associated symptoms includes sore throat. Denies nausea, vomiting , and diarrhea. Treatments tried include nothing so far. with no relief of symptoms. Sick contacts: unknown. History of asthma, frequent episodes of bronchitis, chronic bronchitis, bronchiectasis or COPD: No Smoker: No Seasonal/environmental allergies: No The ROS is otherwise negative. The patient's pmh, medications, allergies, and past visits are reviewed. PHYSICAL EXAM: BP 110/82 Pulse 115 Temp (!) 38.5 ?C (101.3 ?F) Resp 20 Wt 51.8 kg (114 lb 3.2 oz) LMP 10/02/2015 SpO2 97% BMI 20.89 kg/m? General appearance: alert, cooperative, pleasant, in no acute distress Head: Normocephalic Eyes: EOM's intact, conjunctiva pink and moist, no icterus, sclera white, non-injected Ears: Right ear: External ear/canal- Normal, TM - clear with good landmarks. Left ear: External ear/canal- Normal, TM - clear with good landmarks Oropharynx:mild erythema, without exudates present Heart: Negative. RRR without obvious murmur, gallop, or rubs. No ectopy. Lungs: clear to auscultation, without rales or wheeze, good air exchange PAST MEDICAL HISTORY Diagnosis Date Epilepsy (HCC) Esophageal spasm Occurs d/t food allergies. Had EGD with balooning 2018. Narcolepsy PAST SURGICAL HISTORY Procedure Laterality Date INSERTION OF IUD 05/29/2019 PAST SURGICAL HISTORY OF 2018 Upper GI Surgery /BALOONING TONSILLECTOMY HX ALLERGIES [place]; Barley; [place]; Beef Containing Products; Cabbage; Chicken Derived; Dairy Aid [Lactase]; Egg; Gluten; Oats; Peanuts; Peas; Soy; Tomatoes; and Wheat, Wheat Germ MEDICATIONS clonazePAM orally disintegrating (KLONOPIN WAFER) 0.5 mg disintegrating tablet Take one tablet by mouth as needed at the onset of a seizure. Do not exceed more than 2 doses in 24 hours. lamoTRIgine ER (LAMICTAL XR) 100 mg 24 hr tablet Take 1 tablet by mouth two times a day. Take with 50 mg tablets for total of 150 mg twice daily lamoTRIgine ER (LAMICTAL XR) 50 mg 24 hr tablet Take 1 tablet by mouth two times a day. Take with 100 mg tablets for total of 150 mg twice daily levETIRAcetam (KEPPRA) 1,000 mg tablet Take 1 tablet by mouth two times a day. folic acid 1 mg tablet Take 2 tablets by mouth once daily. No family history on file. Social History Tobacco Use Smoking status: Never Smokeless tobacco: Never Vaping Use Vaping status: Some Days Substances: CBD Substance Use Topics Alcohol use: Yes Drug use: Yes Types: Marijuana Comment: Delta 8 ASSESSMENT/PLAN: 1. Sore throat - ICD9: 462, ICD10: J02.9 (primary diagnosis) - STREP A MOLECULAR (POC) - neg 2. Acute cough - ICD9: 786.2, ICD10: R05.1 - XR CHEST 2V FRONTAL/LAT * * * * Physician Interpretation * * * * EXAMINATION: CHEST RADIOGRAPH (2 VIEW FRONTAL AND LATERAL) CLINICAL HISTORY: Acute cough MQ: XC2_6 EXAM DATE/TIME: 07/10/2024 3:47 PM COMPARISON: Chest x-ray dated 06/14/2023 RESULT: Lines, tubes, and devices: None. Lungs and pleura: Focal opacity in the medial right lower lobe. No pleural effusion. No pneumothorax. Cardiomediastinal silhouette: Normal cardiomediastinal silhouette. Bones and soft tissues: Stable mild dextrocurvature. Mild degenerative changes. IMPRESSION IMPRESSION: Focal opacity in the medial right lower lobe suspect for pneumonia in the appropriate clinical setting Diving Instructor: DEANNA Transcribe Date/Time: Jul 10 2024 3:47P Dictated by : MD [place] and bromfed Prescription instructions reviewed with patient as applicable. Potential red flag symptoms discussed with the patient. Reviewed appropriate action plan to take if red flag symptoms occur. Patient agreeable to treatment plan. Krysta Sanches APRN.[facility] 07-10-2024 History of Presen t illness Narrative CC: Patient presents with: Cough: CYR, sinus, fever x 3 weeks HPI: Lynsey Johnson is a 29 year old female who presents to the office with complaint of cough, nonproductive and sinus symptoms for 5 days. Symptoms are staying the same. Associated symptoms includes sore throat. Denies nausea, vomiting , and diarrhea. Treatments tried include nothing so far. with no relief of symptoms. Sick contacts: unknown. History of asthma, frequent episodes of bronchitis, chronic bronchitis, bronchiectasis or COPD: No Smoker: No Seasonal/environmental allergies: No The ROS is otherwise negative. The patient's pmh, medications, allergies, and past visits are reviewed. PHYSICAL EXAM: BP 110/82 Pulse 115 Temp (!) 38.5 C (101.3 F) Resp 20 Wt 51.8 kg (114 lb 3.2 oz) LMP 10/02/2015 SpO2 97% BMI 20.89 kg/m General appearance: alert, cooperative, pleasant, in no acute distress Head: Normocephalic Eyes: EOM's intact, conjunctiva pink and moist, no icterus, sclera white, non-injected Ears: Right ear: External ear/canal- Normal, TM - clear with good landmarks. Left ear: External ear/canal- Normal, TM - clear with good landmarks Oropharynx:mild erythema, without exudates present Heart: Negative. RRR without obvious murmur, gallop, or rubs. No ectopy. Lungs: clear to auscultation, without rales or wheeze, good air exchange PAST MEDICAL HISTORY Diagnosis Date Epilepsy (HCC) Esophageal spasm Occurs d/t food allergies. Had EGD with balooning 2017. Narcolepsy PAST SURGICAL HISTORY Procedure Laterality Date INSERTION OF IUD 05/29/2019 PAST SURGICAL HISTORY OF 2018 Upper GI Surgery /BALOONING TONSILLECTOMY HX ALLERGIES [place]; Barley; [place]; Beef Containing Products; Cabbage; Chicken Derived; Dairy Aid [Lactase]; Egg; Gluten; Oats; Peanuts; Peas; Soy; Tomatoes; and Wheat, Wheat Germ MEDICATIONS clonazePAM orally disintegrating (KLONOPIN WAFER) 0.5 mg disintegrating tablet Take one tablet by mouth as needed at the onset of a seizure. Do not exceed more than 2 doses in 24 hours. lamoTRIgine ER (LAMICTAL XR) 100 mg 24 hr tablet Take 1 tablet by mouth two times a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 PA process. This staff was transferred several times and placed on hold for long periods of time. Unable to wait longer as there are patients in office. Will call back to [phone] to complete tomorrow. EVE Stock documented in this encounter [facility] 05-26-2022 Miscellaneous Notes Patient has appointment scheduled for 11/06, should patient be scheduled sooner or is this follow up appropriate? EVE Stock Patient calling asking if she needs appt with Dr Hood since all of her labs were within normal range? Patient phone number is [phone]. Please advise Pt updated with providers message through . EVE Stock Labs received were all within normal ranges. Juan Hood MD Below mentioned lab results can all be found under Lab dated for 05/11 as an external lab. It includes TSH, T4, Vit D25 and Vit B12. Please review and advise the patient. Thank you. EVE Stock Please watch for the patient's lab results for a TSH BLD, T$, Vit D25 and Vit B12. Per telephone encounter from 05/06/22. Labs received from [facility]. Sent to scanning with copy placed on providers desk for review. EVE Stock This encounter was closed and no notes of result message for the patient. Lab results that were scanned doesn't have the Vit B12 results. Called [facility] and request the have them faxed to [phone]. documented in this encounter [facility] 05-06-2022 Miscellaneous Notes Labs received from [facility]. Sent to scanning with copy placed on providers desk for review. EVE Stock documented in this encounter [facility] 05-05-2022 Miscellaneous Notes Patient calling and asking for recent lab orders to be faxed to [facility] Lab. Faxed as requested. Jessenia Paige RN documented in this encounter [facility] 05-04-2022 History of Presen t illness Narrative ESTABLISHED PATIENT VISIT (Virtual Visit with Video) For this virtual visit, the patient has been identified by name and (MRN and photo identification as well if available). Those taking part in visit: Patient and physician via Mobile Location, [facility]. (Last seen in person by Dalila Cueto CNP on 10/2021) Consent for this visit received from patient. HISTORY OF PRESENT ILLNESS: Lynsey Orellana is a 26 year old female, There were no vitals taken for this visit. with a H significant for and per last office visit note of Dalila Cueto CNP on 11/05/21: G47.419 Narcolepsy without cataplexy (primary encounter diagnosis) Comment: Pt reports she is doing well with Nuvigil 250mg once daily. Reports recent increased drowsiness due to not having medication. No SE and no other concerns. She does not wish to add or change medication at this time. Will continue as previously prescribed. As previously advised she should not drive or operate heavy machinery when sleepy. RF for Nuvigil provided. 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 Currently taking Lamictal and Keppra. Following regularly with epilepsy clinic. Sleep Questionnaire Data Depression Screening 09/02/2020 09/03/2021 05/04/2022 PHQ-2 Score 1 2 2 PHQ-9 Score 5 3 9 CHANEL-2 Total Score - 4 4 CHANEL-7 Total Score - 8 9 PED PHQ-9 09/02/2020 09/03/2021 05/04/2022 Little interest or pleasure in doing things Not at all Several days Several days Feeling down, depressed, or hopeless Several days Several days Several days Trouble falling or staying asleep, or sleeping too much Not at all Not at all Not at all Feeling tired or having little energy Not at all Not at all Several days Poor appetite or overeating Not at all Not at all Several days Feeling bad about yourself - or that you are a failure or have let yourself or your family down Several days Several days Not at all Trouble concentrating on things, such as reading the newspaper or watching television Nearly every day Not at all Nearly every day Moving or speaking so slowly that other people could have noticed. Or the opposite - being so fidgety or restless that you have been moving around a lot more than usual Not at all Not at all More than half the days Thoughts that you would be better off , or of hurting yourself in some way Not at all Not at all Not at all If you checked off any problems, how difficult have these problems made it for you to do your work, take care of things at home, or get along with other people? Not difficult at all Somewhat difficult Somewhat difficult PHQ-9 Score 5 (Mild Depression) 3 (None-Minimal Depression) 9 (Mild Depression) [place] Sleepiness Scale 09/02/2020 09/03/2021 05/04/2022 Score 7 (No daytime sleepiness) - 8 (No daytime sleepiness) Patient feels Nuvigil still working. No issues being awake. Going to bed about 10PM and waking about 545AM. Finds sleep to be restorative. Nuvigil lasting all day long. Not falling asleep driving. However, states memory is really scaring her. States forgetting things to the point that the other day let dog out and forgot about her until later this AM. Got this year and someone when she got and could not remember. States frequently going into rooms and not remembering why she is there. Denies any seizure activity. REVIEW OF SYSTEMS GENERAL:No weight loss, malaise or fevers. HEENT:Negative for frequent or significant headaches, No changes in hearing or vision, no nose bleeds or other nasal problems RESPIRATORY: Negative for cough, wheezing or shortness of breath. CARDIOVASCULAR: Negative for chest pain, leg swelling or palpitations. LAB/IMAGING: Those performed since patient's last visit have been reviewed. WBC (k/uL) Date Value 09/02/2020 3.42 (L) RBC (m/uL) Date Value 09/02/2020 4.14 Hemoglobin (g/dL) Date Value 09/02/2020 13.9 Hematocrit (%) Date Value 09/02/2020 40.2 MCV (fL) Date Value 09/02/2020 97.1 MCH (pG) Date Value 09/02/2020 33.6 MCHC (g/dL) Date Value 09/02/2020 34.6 RDW-CV (%) Date Value 09/02/2020 11.7 Platelet Count (k/uL) Date Value 09/02/2020 204 MPV (fL) Date Value 09/02/2020 10.6 Glucose (mg/dL) Date Value 09/02/2020 91 BUN (mg/dL) Date Value 09/02/2020 13 Creatinine (mg/dL) Date Value 09/02/2020 0.90 Sodium (mmol/L) Date Value 09/02/2020 140 Potassium (mmol/L) Date Value 09/02/2020 4.0 Chloride (mmol/L) Date Value 09/02/2020 104 CO2 (mmol/L) Date Value 09/02/2020 28 Protein, Total (g/dL) Date Value 09/02/2020 6.6 Albumin (g/dL) Date Value 09/02/2020 4.5 Calcium (mg/dL) Date Value 09/02/2020 9.1 Alkaline Phosphatase (U/L) Date Value 09/02/2020 60 Bilirubin, Total (mg/dL) Date Value 09/02/2020 0.5 AST (U/L) Date Value 09/02/2020 14 ALT (U/L) Date Value 09/02/2020 13 MEDICATIONS: armodafinil (NUVIGIL) 250 mg tab Take 1 tablet by mouth once daily. levETIRAcetam (KEPPRA) 1,000 mg tablet Take 1 tablet by mouth twice daily. lamoTRIgine ER (LAMICTAL XR) 100 mg 24 hr tablet Take 1 tablet by mouth twice daily. Take with 50 mg tablets for total of 150 mg twice daily lamoTRIgine ER (LAMICTAL XR) 50 mg 24 hr tablet Take 1 tablet by mouth twice daily. Take with 100 mg tablets for total of 150 mg twice daily folic acid 1 mg tablet Take 2 tablets by mouth once daily. clonazePAM orally disintegrating (KLONOPIN WAFER) 0.5 mg disintegrating tablet Take one tablet by mouth as needed at the onset of a seizure. Do not exceed more than 2 doses in 24 hours. levonorgestrel (MIRENA) 20 mcg/24 hours (5 yrs) 52 mg IUD 1 Each by INTRAUTERINE route as directed. EPIDUO FORTE 0.3-2.5 % glwp Apply 0.3 mg to affected area as directed. spironolactone (ALDACTONE) 50 mg tablet Take 50 mg by mouth twice daily. HISTORIES PAST MEDICAL HISTORY Diagnosis Date Epilepsy (HCC) Narcolepsy No family history on file. SOCIAL HISTORY Social History Tobacco Use Smoking status: Never Smokeless tobacco: Never Vaping Use Vaping Use: Never used Substance Use Topics Alcohol use: Yes Drug use: No PHYSICAL EXAMINATION LMP 10/02/2015 GENERAL EXAM: General appearance: NAD, pleasant. HEENT: NC/AT NECK: ROM nml. Lungs: No audible cough, wheeze, sob. NEUROLOGICAL EXAM: General: Awake, alert, oriented x3 (person,place,time), speech fluent, no dysarthria; comprehension, naming, repetition intact. CN: EOMI, hearing intact, face symmetric. Palate and tongue midline. SCM and trapezius strength symmetric. Motor:BRADSHAW equal and symmetric. Coordination: FNF, LANE intact. No tremors. Sensation: Light touch subjectively intact throughout. No evidence of neglect. Assessment and Plan: ASSESSMENT/PLAN: 1. Primary narcolepsy without cataplexy - ICD9: 347.00, ICD10: G47.419 (primary diagnosis) Subjectively, wakefulness stable, with ESS <10. Will continue Nuvigil as above. 6 months of Rx provided. Follow up in 6 months in person. Reviewed SE and ADRs of Nuvigil. Advised pt not to drive or operate heavy machinery if sleepy. 2. Memory problem - ICD9: 780.93, ICD10: R41.3 New complaints. Subjective. Possible secondary to AEDs. Denying sleepiness or seizures. Also consider metabolic or vitamin deficiency as cause. Will check following labs: - TSH BLD - T4 FREE/FREE THYROX - VITAMIN B12 BLOOD - VITAMIN D 25 HYDROXY Will update epilepsy. 3. 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 Encouraged follow up with epilepsy clinic. Juan Hood MD I spent a total of 22 minutes on the date of the service which included preparing to see the patient, [id number] patient care, completing clinical documentation, obtaining and/or reviewing separately obtained history, performing a medically appropriate examination, counseling and educating the patient/family/caregiver, ordering medications, tests, or procedures, and communicating results to the patient/family/caregiver. documented in this encounter [facility] 04-06-2022 Miscellaneous Notes Pharmacy escripts requesting the following refill: Requested Prescriptions Pending Prescriptions Disp Refills armodafinil (NUVIGIL) 250 mg tab [Pharmacy Med Name: Armodafinil 250mg Tablet] 30 tablet 1 Sig: Take 1 tablet by mouth once daily. CELESTINE: 11/05/2021 NOV: 05/04/2022 Please review. Missy Nathan CMA documented in this encounter [facility] 04-03-2022 History of Presen t illness Narrative Lynsey is a 26 year old who presents for an annual gynecologic exam without complaints. Menses: no menses - Mirena IUD. Random period in Jan Contraception: IUD HPV vaccine: Yes Last Pap: 08/11/2019 normal HPV: N/A History of abnormal pap: Yes Last mammogram: never Sexually active: Yes Patient concerns for STD exposure: No. 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 PAST MEDICAL HISTORY Diagnosis Date Epilepsy (HCC) Narcolepsy PAST SURGICAL HISTORY Procedure Laterality Date INSERTION OF IUD 05/29/2019 PAST SURGICAL HISTORY OF 2018 Upper GI Surgery TONSILLECTOMY HX No family history on file.SOCIAL HISTORY Social History Tobacco Use Smoking status: Never Smokeless tobacco: Never Vaping Use Vaping Use: Never used Substance Use Topics Alcohol use: Yes Drug use: No REVIEW OF SYSTEMS Abdomen: No abdominal pain, nausea, vomiting, diarrhea, or constipation. No bloating, early satiety, indigestion, or increased flatulence. Bladder: No dysuria, gross hematuria, urinary frequency, urinary urgency, or incontinence. Breast: No breast lumps, nipple d/c, overlying skin changes, redness or skin retraction. Allergies and current medication updated:Yes EXAM: BP 102/66 Ht 5' 2 (1.58m) Wt 111 lb (50.3kg) LMP 10/02/2015 BMI 20.30 kg/(m^2). GENERAL: pleasant, female in no apparent distress HEENT: Normocephalic, atraumatic, mucus membranes moist, and no lesions NECK: Supple, full range of motion, no adenopathy, and thyroid normal DERMATOLOGY: Normal, without lesions, non-icteric, and non-hirsute BREAST: soft, non-tender, symmetric, no dominant mass, normal nipple-areolar complex, no lymphadenopathy, and no nipple discharge CHEST: Normal inspiratory effort ABDOMEN: soft, non-tender, and no masses PELVIC: external genitalia normal, normal Bartholin's glands, urethra, [place]'s glands, no vulvar lesions, no cervical lesions, good vaginal support, physiologic discharge present, normal appearing perineal body and perianal region, IUD string seen BIMANUAL: uterus normal size, shape and consistency, no adnexal masses, and non-tender RECTOVAGINAL: deferred. NEURO: alert and oriented x3,exam grossly non-focal EXTREMITIES: normal ASSESSMENT/PLAN: 1) Health maintenance: Pap done with reflex HPV. Mammogram starting age 40. Nutrition, exercise and routine health maintenance exams reviewed. 2) Contraception: IUD. Contraceptive options reviewed and information provided. 3) STD screening: Declined STD check. 4) Follow up one year or sooner as needed Tika Pham APRN.CEE documented in this encounter [facility] 02-27-2022 History of Presen t illness Narrative Lynsey Orellana presents today for IUD check. She had a Mirena placed on 05/29/19. She has had no complications since placement. However, today started bright red bleeding. Definitely vaginal. Family Law Specialist this afternoon than today. No pain or cramping. No trauma REVIEW OF SYSTEMS: no other c/o PHYSICAL EXAMINATION: Wt 112 lb (50.8kg) LMP 10/02/2015 ABDOMEN:soft, non-tender, no masses, no hepatosplenomegaly, and no lymphadenopathy EXTERNAL GENITALIA: Normal genitalia and Bartholins, Urethra, [place] normal CERVIX: smooth, no lesions, IUD strings visualized, and small pink discharge, no bright red blood or clots . IUD strings visible. UTERUS: normal size, non-tender, and freely mobile ADNEXA: negative for tenderness or masses IMPRESSION/PLAN: IUD correctly positioned. some unscheduled bleeding w/ IUD is not unexpected. Uncertain if will continue. No evidence of trauma or other cause of vaginal bleeding Dillon Dillard M.D. documented in this encounter [facility] 02-27-2022 Miscellaneous Notes Patient notified. States she has never been able to check her IUD strings and currently at work. Appointment given for today. Mery Toribio RN Left message to call office. Marjorie Barreto RN Can have a period even w/ IUD in. May have accumulated in uterus and now working its way out. If she can't check strings I would recommend back up contraception until she can come in for a string check. Thanks. Dillon Dillard MD Patient had mirena iud inserted 05/29/2019 and prior to Mirena patient had a Krista IUD.inserted in 2016. Patient reports that she has not had a menses since 2016 when first IUD was inserted and when she woke up today she had a gush of bright red blood with mild cramping. Is at work currently and wearing a tampon d/t the bleeding. Patient states that she does not check for string placement d/t her cervix being high. Please advise. documented in this encounter [facility] 12-09-2021 Miscellaneous Notes SW received voicemail from patient today, requesting return phone call. SW attempted to return call this afternoon, left message requesting return phone call. SW will continue to follow. documented in this encounter [facility] 11-05-2021 History of Presen t illness Narrative Images from the original note were not included. [facility] Follow-up Visit Follow-up note November 05, 2021 HPI: Ms. Orellana presents today for a follow-up visit. Per her previous visit with Dr. Hood on 04/21/21: ASSESSMENT/PLAN: 1. Nonintractable epilepsy without status epilepticus, unspecified epilepsy type (HCC) - ICD9: 345.90, ICD10: G40.909 (primary diagnosis) Breakthrough seizure secondary to not having meds (provoked). Now back on meds without issues. Will inform epilepsy. No changes in AEDs at this time. Will defer driving to epilepsy, but again provoked and when on meds, has been seizure free. 2. Narcolepsy without cataplexy - ICD9: 347.00, ICD10: G47.419 More tired later in day. Discussed with pt option of adding low dose stimulant or Provigil in the afternoon but she would like to hold on med changes for now. Advised pt not to drive or operate heavy machinery when sleepy. Refills for Nuvigil provided. 3. High risk medication use - ICD9: V58.69, ICD10: Z79.899 Labs early this year only concerning for mild leukocytosis. Will defer further labs to epilepsy. From sleep standpoint no additional workup needed at this time. Since March she has been doing well. Ran out of medication two weeks ago. When taking the medication she feels like she can function. Does not need to change/add medication. 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 Goes to bed around 10pm and wakes at 6am. Still following with epilepsy clinic. Denies seizure activity since her previous visit. Still taking lamictal and keppra. See below. 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 No photosensitivity or myoclonus by history. EEGs have shown spike and polyspike and wave discharges. Episode 07/2019 prolonged and atypical description (no KARLA) but can not rule seizure completely. Last convulsive seizure 03/24/2021 in setting of missed levetiracetam due to pharmacy change. PLAN: - Continue doses of lamotrigine and levetiracetam unchanged Lamotrigine XR 150 mg BID (refilled) Levetiracetam 1000 mg BID (refilled) - Will attempt to connect to any resources for counseling services - will ask my social work colleagues - Trough timed antiseizure medication levels - After labs if remains seizure free would intend for driving release at 6 months seizure freedom (09/22/2021); patient pre-filled today and given to office. - Rescue: clonazepam - rediscussed proper use (refill provided) PDMP website checked and validated. All prescriptions have been APPROPRIATELY filled. No suspicious activity was identified. 09/03/2021 by Yamileth Ewing MD - If clear seizure recurrence, options for lamotrigine increase as tolerated (pending level); reincrease of levetiracetam versus, trial of zonisamide - If seizures increase / intractable or remain atypical consider EMU for characterization / burden assessment - Women's health issues were addressed this visit: IUD in place; no current plan for iminently; continue folic acid 2 mg daily (refilled) Denies chest pain, palpitations, SOB. Denies weakness, numbness, tingling. States she has been feeling more forgetful since stopping medication as she has felt more tired. No concerns while on medication. Denies headaches, LOC. PAST MEDICAL HISTORY Diagnosis Date Epilepsy (HCC) Narcolepsy PAST SURGICAL HISTORY Procedure Laterality Date PAST SURGICAL HISTORY OF 2018 Upper GI Surgery TONSILLECTOMY HX Current Outpatient Medications on File Prior to Visit Medication Sig armodafinil (NUVIGIL) 250 mg tab Take 1 tablet by mouth once daily for 7 days. levETIRAcetam (KEPPRA) 1,000 mg tablet Take 1 tablet by mouth twice daily. lamoTRIgine ER (LAMICTAL XR) 100 mg 24 hr tablet Take 1 tablet by mouth twice daily. Take with 50 mg tablets for total of 150 mg twice daily lamoTRIgine ER (LAMICTAL XR) 50 mg 24 hr tablet Take 1 tablet by mouth twice daily. Take with 100 mg tablets for total of 150 mg twice daily folic acid 1 mg tablet Take 2 tablets by mouth once daily. clonazePAM orally disintegrating (KLONOPIN WAFER) 0.5 mg disintegrating tablet Take one tablet by mouth as needed at the onset of a seizure. Do not exceed more than 2 doses in 24 hours. levonorgestrel (MIRENA) 20 mcg/24 hours (5 yrs) 52 mg IUD 1 Each by INTRAUTERINE route as directed. EPIDUO FORTE 0.3-2.5 % glwp Apply 0.3 mg to affected area as directed. spironolactone (ALDACTONE) 50 mg tablet Take 50 mg by mouth twice daily. No current facility-administered medications on file prior to visit. Social History Tobacco Use Smoking status: Never Smoker Smokeless tobacco: Never Used Vaping Use Vaping Use: Never used Substance Use Topics Alcohol use: Yes Drug use: No ALLERGIES Allergen Reactions [place] Shortness of Breath Pt with EOE Barley Shortness of Breath Patient diagnosed with Eosinophilic esophagitis [place] Shortness of Breath Beef Containing Pro* Shortness of Breath Patient diagnosed with EOE Cabbage Shortness of Breath Patient diagnosed with EOE Chicken Derived Shortness of Breath Dairy Aid [Lactase] Shortness of Breath Patient diagnosed with EOE Egg Shortness of Breath Patient diagnosed with EOE Gluten Shortness of Breath Oats Shortness of Breath Patient diagnosed with EOE Peanuts Shortness of Breath Patient diagnosed with EOE All nuts except cashews Peas Shortness of Breath Soy Shortness of Breath Patient diagnosed with EOE Tomatoes Shortness of Breath Patient diagnosed with EOE Wheat, Wheat Germ Shortness of Breath Patient diagnosed with EOE Review of Systems: Cardiopulmonary: denies chest pain, palpitations Respiratory: denies shortness of breath GI/: denies recent nausea, vomiting, diarrhea, constipation, incontinence Musculoskeletal: denies weakness, joint ache/pain Back/spine: denies low back or cervical pains Neuro: denies tremors, loss of feeling, dizziness, seizure, blackout, paresthesia, facial paresthesia, facial weakness, difficulty in speech, slurring of words, dysarthria, dysphagia, memory loss, headache, vision changes, loss of hearing Physical Exam: 11/05/21 1605 BP: 108/65 Pulse: 76 Patient is alert and in no distress. Dress is appropriate. Mood is appropriate Breathing appears regular and unstressed Neurologic examination: Cognitively intact. No deficits. No formal MMSE performed. CN: Pupils equal and reactive to light, extraocular movements intact with no nystagmus, face is symmetric with no facial droop, hearing intact bilaterally, symmetric evaluation of the soft palate, tongue is midline with no deviation, shoulder shrug is symmetric. Motor exam shows 5/5 strength symmetric through the upper and lower extremities in all groups tested. Sensory intact to light touch in all extremities. Vibratory sensation is intact and symmetric all extremities. Deep tendon reflexes are symmetric at the biceps, brachioradialis, triceps, patella, and achilles bilaterally. Coordination: No dysmetria on finger to nose. No tremors noted. No drift seen. Gait normal in stance and pattern. Labs/studies: Component Latest Ref Rng & Units 09/02/2020 WBC 3.70 - 11.00 k/uL 3.42 (L) RBC 3.90 - 5.20 m/uL 4.14 Hemoglobin 11.5 - 15.5 g/dL 13.9 Hematocrit 36.0 - 46.0 % 40.2 MCV 80.0 - 100.0 fL 97.1 MCH 26.0 - 34.0 pG 33.6 MCHC 30.5 - 36.0 g/dL 34.6 RDW-CV 11.5 - 15.0 % 11.7 Platelet Count 150 - 400 k/uL 204 MPV 9.0 - 12.7 fL 10.6 Neut% % 46.5 Abs Neut (ANC) 1.45 - 7.50 k/uL 1.59 Lymph% % 40.1 Abs Lymph 1.00 - 4.00 k/uL 1.37 [place]% % 9.6 Abs [place] <0.87 k/uL 0.33 Eosin% % 2.9 Abs Eosin <0.46 k/uL 0.10 Baso% % 0.9 Abs Baso <0.11 k/uL 0.03 Nucleated Reds 0 /100 WBC 0.0 Absolute nRBC <0.01 k/uL <0.01 Diff Type Auto Diff Protein, Total 6.3 - 8.0 g/dL 6.6 Albumin 3.9 - 4.9 g/dL 4.5 Calcium 8.5 - 10.2 mg/dL 9.1 Bilirubin, Total 0.2 - 1.3 mg/dL 0.5 Alkaline Phosphatase 34 - 123 U/L 60 AST 13 - 35 U/L 14 Glucose 74 - 99 mg/dL 91 BUN 7 - 21 mg/dL 13 Creatinine 0.58 - 0.96 mg/dL 0.90 Sodium 136 - 144 mmol/L 140 Potassium 3.7 - 5.1 mmol/L 4.0 Chloride 97 - 105 mmol/L 104 CO2 22 - 30 mmol/L 28 Anion Gap 9 - 18 mmol/L 8 (L) ALT 7 - 38 U/L 13 eGFR- >60 eGFR-All Other Races . >60 Assessment/Plan: G47.419 Narcolepsy without cataplexy (primary encounter diagnosis) Comment: Pt reports she is doing well with Nuvigil 250mg once daily. Reports recent increased drowsiness due to not having medication. No SE and no other concerns. She does not wish to add or change medication at this time. Will continue as previously prescribed. As previously advised she should not drive or operate heavy machinery when sleepy. RF for Nuvigil provided. 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 Currently taking Lamictal and Keppra. Following regularly with epilepsy clinic. Lily Cueto APRN.COLLEGE [employer]IVERSITY FACULTY MEMBER I spent a total of 20 minutes on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 motor movements, normal tone REFLEXES: deferred SENSORY: deferred COORDINATION: no ataxia, no tremor or abnormal movement noted GAIT: Normal IMPRESSION: The patient's history is 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 No photosensitivity or myoclonus by history. EEGs have shown spike and polyspike and wave discharges. Episode 07/2019 prolonged and atypical description (no KARLA) but can not rule seizure completely. Last convulsive seizure 03/24/2021 in setting of missed levetiracetam due to pharmacy change. PLAN: - Continue doses of lamotrigine and levetiracetam unchanged Lamotrigine XR 150 mg BID (refilled) Levetiracetam 1000 mg BID (refilled) - Will attempt to connect to any resources for counseling services - will ask my social work colleagues - Trough timed antiseizure medication levels - After labs if remains seizure free would intend for driving release at 6 months seizure freedom (09/22/2021); patient pre-filled today and given to office. - Rescue: clonazepam - rediscussed proper use (refill provided) PDMP website checked and validated. All prescriptions have been APPROPRIATELY filled. No suspicious activity was identified. 09/03/2021 by Yamileth Ewing MD - If clear seizure recurrence, options for lamotrigine increase as tolerated (pending level); reincrease of levetiracetam versus, trial of zonisamide - If seizures increase / intractable or remain atypical consider EMU for characterization / burden assessment - Women's health issues were addressed this visit: IUD in place; no current plan for iminently; continue folic acid 2 mg daily (refilled) FOLLOW-UP: Within 1 year sooner if seizure recurrence I spent a total of 27 minutes on the date of the service which included: preparing to see the patient [id number] patient care completing clinical documentation obtaining and/or reviewing separately obtained history counseling and educating the patient/family/caregiver ordering medications, tests, or procedures care coordination (not separately reported) Yamileth Ewing MD, MEd Staff Physician [facility], [place] [address] Office cc: Primary Care Physician: Tiburcio Summers MD [address] [facility] [address] Referring: Yamileth Ewing [address] [facility] [address] Fax: Patient: Ms. yLnsey Orellana [address] [place] [address] [address] [facility] [address] documented in this encounter [facility] 09-01-2021 Miscellaneous Notes The following approved medication requests have been transmitted electronically. Signed Prescriptions Disp Refills levETIRAcetam (KEPPRA) 1,000 mg tablet 225 tablet 2 Sig: Take 1 tablet by mouth every morning AND 1.5 tablets every evening. ANGELICA: No Authorizing Provider: SHELLEY DAVIS APRN.CNP Prescription Refill: Note, last entry says patient update. Requested by: patient Please E-Scribe Caller Contact Number: [phone] (home) Pharmacy Name: [facility] Pharmacy Number: [phone] Generic/ brand: generic 30 or 90 day supply requested: 90 Last appointment: 05/14/21 Next Appointment: none Patient of Dr. Ewing documented in this encounter [facility] 09-01-2021 Miscellaneous Notes The following approved medication requests have been transmitted electronically. Refused Prescriptions Disp Refills levETIRAcetam (KEPPRA) 1,000 mg tablet [Pharmacy Med Name: Levetiracetam 1000mg Tablet] 180 tablet Sig: Take 1 tablet by mouth twice daily. ANGELICA: No Refused By: SHELLEY DAVIS Reason for Refusal: Records indicate that there is a valid prescription at the pharmacy Shelley Davis APRN.CNP documented in this encounter [facility] Evaluation note Diagnosis Generalized epilepsy (HCC) Unspecified 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 [facility] Diagnosis Generalized epilepsy (HCC) Unspecified 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 [facility] Diagnosis Generalized epilepsy (HCC) Unspecified 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 Breakthrough seizure (HCC) Unspecified epilepsy with intractable epilepsy Anxiety Anxiety state, unspecified [facility] Diagnosis Narcolepsy without cataplexy [facility] Diagnosis Narcolepsy without cataplexy [facility] Diagnosis Narcolepsy without cataplexy- Primary Nonintractable epilepsy without status epilepticus, unspecified epilepsy type (HCC) [facility]* Diagnosis IUD check up- Primary Surveillance of previously prescribed intrauterine contraceptive device Abnormal uterine bleeding (AUB) [facility] Diagnosis Encounter for gynecological examination (general) (routine) without abnormal findings- Primary Screening for cervical cancer Screening for malignant neoplasm of the cervix Encounter for routine checking of intrauterine contraceptive device (IUD) [facility]* Diagnosis Narcolepsy without cataplexy [facility] Diagnosis Primary narcolepsy without cataplexy- Primary Memory problem Memory loss 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 [facility] noteNo assessment information [facility] Work Phone: Evaluation note* Diagnosis Generalized epilepsy (HCC) Unspecified 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 [facility] Diagnosis Narcolepsy without cataplexy [facility]* Diagnosis Generalized epilepsy (HCC) Unspecified 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 [facility] Diagnosis Narcolepsy without cataplexy [facility]* Diagnosis Narcolepsy without cataplexy [facility]* Diagnosis Narcolepsy without cataplexy [facility]* Diagnosis Primary narcolepsy without cataplexy- Primary [facility]* Diagnosis Primary narcolepsy without cataplexy [facility]* Diagnosis Primary narcolepsy without cataplexy documented in this encounter [facility] note* Diagnosis Generalized epilepsy (HCC)- Primary Unspecified 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 documented in this encounter [facility] note* Diagnosis Generalized epilepsy (HCC)- Primary Unspecified 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 documented in this encounter [facility] note* Diagnosis Encounter for IUD removal- Primary Encounter for removal of intrauterine contraceptive device documented in this encounter [facility] note* Diagnosis Sore throat- Primary Acute pharyngitis Acute cough Bacterial pneumonia Bacterial pneumonia, unspecified Acute cough documented in this encounter [facility] note* Diagnosis Acute cough documented in this encounter [facility] note* Diagnosis Positive test (HCC)- Primary examination or test, positive result Spotting Other specified noninflammatory disorder of vagina documented in this encounter [facility] note* Diagnosis Supervision of high risk , antepartum (HCC)- Primary with uncertain dates, antepartum (HCC) state, incidental Screen for STD (sexually transmitted disease) Screening examination for venereal disease care, first in first trimester (HCC) 8 weeks gestation of (HCC) state, incidental documented in this encounter [facility] note* Diagnosis Generalized epilepsy (HCC) Unspecified 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 documented in this encounter [facility] note* Diagnosis Generalized convulsive epilepsy (HCC)- Primary Generalized convulsive 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 documented in this encounter [facility] note* Diagnosis Generalized epilepsy (HCC)- Primary Unspecified 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 documented in this encounter [facility] note* Diagnosis care, first in first trimester (HCC)- Primary Supervision of high risk in first trimester (HCC) Unspecified high-risk 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) Supervision of high risk , antepartum (HCC) * Assessment & Plan Note - Dillon Dillard MD - 11/01/2024 10:10 AM EDT Associated Problem(s): Generalized convulsive epilepsy (HCC) Orders: [id number] PLUS; Future OBSTETRIC ULTRASOUND WHI; Standing * Assessment & Plan Note - Dillon Dillard MD - 11/01/2024 10:10 AM EDT Associated Problem(s): 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) Orders: [id number] PLUS; Future OBSTETRIC ULTRASOUND WHI; Standing * Assessment & Plan Note - Dillon Dillard MD - 11/01/2024 10:10 AM EDT Associated Problem(s): Supervision of high risk , antepartum (HCC) documented in this encounter [facility] note* Diagnosis Encounter for screening for malformation using ultrasound (HCC)- Primary 12 weeks gestation of ([facility]) state, incidental care, first in first trimester (HCC)- Primary Supervision of high risk in first trimester (HCC) Unspecified high-risk 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) Supervision of high risk , antepartum (HCC) documented in this encounter [facility] note* Diagnosis care, first in first trimester (HCC)- Primary Supervision of high risk in first trimester (HCC) Unspecified high-risk 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) Supervision of high risk , antepartum (HCC) Supervision of high risk in second trimester (HCC)- Primary Unspecified high-risk 16 weeks gestation of ([facility]) state, incidental Generalized convulsive epilepsy (HCC) Generalized convulsive 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 documented in this encounter [facility] note* Diagnosis care, first in first trimester (HCC)- Primary Supervision of high risk in first trimester (HCC) Unspecified high-risk 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) Supervision of high risk , antepartum (HCC) Generalized epilepsy (HCC) Unspecified 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 documented in this encounter [facility] note* Diagnosis care, first in first trimester (HCC)- Primary Supervision of high risk in first trimester (HCC) Unspecified high-risk 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) Supervision of high risk , antepartum ([facility]) Encounter for anatomic survey ([facility])- Primary Encounter for anatomic survey 20 weeks gestation of ([facility]) state, incidental documented in this encounter [facility] note* Diagnosis care, first in first trimester ([facility])- Primary Supervision of high risk in first trimester ([facility]) Unspecified high-risk 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) Supervision of high risk , antepartum ([facility]) Supervision of high risk in second trimester ([facility])- Primary Unspecified high-risk 20 weeks gestation of ([facility]) state, incidental Supervision of high risk , antepartum ([facility]) History of epilepsy Personal history of other disorders of nervous system and sense organs documented in this encounter [facility] note* Diagnosis care, first in first trimester ([facility])- Primary Supervision of high risk in first trimester ([facility]) Unspecified high-risk 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) Supervision of high risk , antepartum ([facility]) Generalized convulsive epilepsy (HCC)- Primary Generalized convulsive 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 24 weeks gestation of ([facility]) state, incidental Supervision of high risk in second trimester ([facility]) Unspecified high-risk Screening for diabetes mellitus documented in this encounter [facility] note* Diagnosis care, first in first trimester ([facility])- Primary Supervision of high risk in first trimester (HCC) Unspecified high-risk 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) Supervision of high risk , antepartum ([facility]) Generalized epilepsy (HCC) Unspecified 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 documented in this encounter [facility] note* Diagnosis care, first in first trimester ([facility])- Primary Supervision of high risk in first trimester (HCC) Unspecified high-risk 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) Supervision of high risk , antepartum (HCC) Generalized epilepsy (HCC) Unspecified 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 documented in this encounter [facility] for referral (narrative)* Outpatient Procedure (Routine) - New Request Specialty Diagnoses / Procedures Referred By Andrew shah Referred To Contact [facility] Diagnoses Encounter for IUD removal Encounter for insertion of intrauterine contraceptive device Procedures REMOVE INTRAUTERINE DEVICE REMOVE INTRAUTERINE DEVICE INSERT INTRAUTERINE DEVICE LEVONORGESTREL IU 52MG 5 YR Tika Pham APRN.[employer] [address] [place] [address] [facility] [address] [place] [address] Referral ID Status Reason Start Date Expiration Date Visits Requested Visits Authorized [id number] New Request Auto-Generat ed Referral 01/11/2024 01/10/2025 1 1 [facility] for visit Narrative* Consult, Test, Treat (Routine) - Closed Specialty Diagnoses / Procedures Referred By Andrew shah Referred To Contact Radiology / [facility] Diagnoses Acute cough XR RM 9 Procedures RADIOLOGIC EXAM CHEST 2 VIEWS XR CHEST Krysta Sanches APRN.CNP [address] [place] [address] Phone: tel: fax: Radiology [address] [place] [address] Phone: tel: fax: Referral ID Status Reason Start Date Expiration Date Visits Re quested Visits Authorized [id number] Closed 07/10/2024 05/30/2025 1 1 [facility] Summary Purpose Family History No Family History Records FoundNo Family History Records FoundNo Family History Records FoundNo Family History Records FoundNo Family History Records Found Advance Directives No Advanced Directives Records Found Advance Directive Response Recorded Date/ Time Living Will No October 08, 2017 1 2:42am Power of Steaming Machine Operator No October 08, 2017 12:42am Advance Directive Response Recorded Date/ Time Living Will No October 08, 2017 1 :42am Power of Steaming Machine Operator No October 08, 2017 1:42am Chief Complaint and Reason for Visit Chief Complaint Other amnesia Chief Complaint EORDER CHEST PAIN Additional Source Comments INFORMATION SOURCE (unrecogn ized section and content) DATE CREATED AUTHOR 03/29/2020 [facility] DATE CREATED AUTHOR AUTHOR'S ORGANIZ ATION 11/19/2022 [facility] DATE CREATED AUTHOR AUTHOR'S ORGANIZ ATION 06/19/2023 [facility] DATE CREATED AUTHOR AUTHOR'S ORGANIZ ATION 04/03/2025 [facility] DATE CREATED AUTHOR AUTHOR'S ORGANIZ ATION 04/11/2025 [facility] Source Comments (unrecognize d section and content) In the event this informatio n is protected by the Federal Confidentiality of Alcohol and Drug Abuse Patient Records regulations: The Federal rules restrict any use of the information to criminally investigate or prosecute any alcohol or drug abuse patient.[facility] the event this information is protected by the Federal Confidentiality of Alcohol and Drug Abuse Patient Records regulations: The Federal rules restrict any use of the information to criminally investigate or prosecute any alcohol or drug abuse patient.[facility] the event this information is protected by the Federal Confidentiality of Alcohol and Drug Abuse Patient Records regulations: The Federal rules restrict any use of the information to criminally investigate or prosecute any alcohol or drug abuse patient.[facility] the event this information is protected by the Federal Confidentiality of Alcohol and Drug Abuse Patient Records regulations: The Federal rules restrict any use of the information to criminally investigate or prosecute any alcohol or drug abuse patient.[facility] the event this information is protected by the Federal Confidentiality of Alcohol and Drug Abuse Patient Records regulations: The Federal rules restrict any use of the information to criminally investigate or prosecute any alcohol or drug abuse patient.[facility] the event this information is protected by the Federal Confidentiality of Alcohol and Drug Abuse Patient Records regulations: The Federal rules restrict any use of the information to criminally investigate or prosecute any alcohol or drug abuse patient.[facility] the event this information is protected by the Federal Confidentiality of Alcohol and Drug Abuse Patient Records regulations: The Federal rules restrict any use of the information to criminally investigate or prosecute any alcohol or drug abuse patient.[facility] the event this information is protected by the Federal Confidentiality of Alcohol and Drug Abuse Patient Records regulations: The Federal rules restrict any use of the information to criminally investigate or prosecute any alcohol or drug abuse patient.[facility] the event this information is protected by the Federal Confidentiality of Alcohol and Drug Abuse Patient Records regulations: The Federal rules restrict any use of the information to criminally investigate or prosecute any alcohol or drug abuse patient.[facility] the event this information is protected by the Federal Confidentiality of Alcohol and Drug Abuse Patient Records regulations: The Federal rules restrict any use of the information to criminally investigate or prosecute any alcohol or drug abuse patient.[facility] the event this information is protected by the Federal Confidentiality of Alcohol and Drug Abuse Patient Records regulations: The Federal rules restrict any use of the information to criminally investigate or prosecute any alcohol or drug abuse patient.[facility] the event this information is protected by the Federal Confidentiality of Alcohol and Drug Abuse Patient Records regulations: The Federal rules restrict any use of the information to criminally investigate or prosecute any alcohol or drug abuse patient.[facility] the event this information is protected by the Federal Confidentiality of Alcohol and Drug Abuse Patient Records regulations: The Federal rules restrict any use of the information to criminally investigate or prosecute any alcohol or drug abuse patient.[facility] the event this information is protected by the Federal Confidentiality of Alcohol and Drug Abuse Patient Records regulations: The Federal rules restrict any use of the information to criminally investigate or prosecute any alcohol or drug abuse patient.[facility] the event this information is protected by the Federal Confidentiality of Alcohol and Drug Abuse Patient Records regulations: The Federal rules restrict any use of the information to criminally investigate or prosecute any alcohol or drug abuse patient.[facility] the event this information is protected by the Federal Confidentiality of Alcohol and Drug Abuse Patient Records regulations: The Federal rules restrict any use of the information to criminally investigate or prosecute any alcohol or drug abuse patient.[facility] the event this information is protected by the Federal Confidentiality of Alcohol and Drug Abuse Patient Records regulations: The Federal rules restrict any use of the information to criminally investigate or prosecute any alcohol or drug abuse patient.[facility] the event this information is protected by the Federal Confidentiality of Alcohol and Drug Abuse Patient Records regulations: The Federal rules restrict any use of the information to criminally investigate or prosecute any alcohol or drug abuse patient.[facility] the event this information is protected by the Federal Confidentiality of Alcohol and Drug Abuse Patient Records regulations: The Federal rules restrict any use of the information to criminally investigate or prosecute any alcohol or drug abuse patient.[facility] the event this information is protected by the Federal Confidentiality of Alcohol and Drug Abuse Patient Records regulations: The Federal rules restrict any use of the information to criminally investigate or prosecute any alcohol or drug abuse patient.[facility] HamiltonIn the event this information is protected by the Federal Confidentiality of Alcohol and Drug Abuse Patient Records regulations: The Federal rules restrict any use of the information to criminally investigate or prosecute any alcohol or drug abuse patient.[facility] HamiltonIn the event this information is protected by the Federal Confidentiality of Alcohol and Drug Abuse Patient Records regulations: The Federal rules restrict any use of the information to criminally investigate or prosecute any alcohol or drug abuse patient.[facility] HamiltonIn the event this information is protected by the Federal Confidentiality of Alcohol and Drug Abuse Patient Records regulations: The Federal rules restrict any use of the information to criminally investigate or prosecute any alcohol or drug abuse patient.[facility] HamiltonIn the event this information is protected by the Federal Confidentiality of Alcohol and Drug Abuse Patient Records regulations: The Federal rules restrict any use of the information to criminally investigate or prosecute any alcohol or drug abuse patient.[facility] HamiltonIn the event this information is protected by the Federal Confidentiality of Alcohol and Drug Abuse Patient Records regulations: The Federal rules restrict any use of the information to criminally investigate or prosecute any alcohol or drug abuse patient.[facility] HamiltonIn the event this information is protected by the Federal Confidentiality of Alcohol and Drug Abuse Patient Records regulations: The Federal rules restrict any use of the information to criminally investigate or prosecute any alcohol or drug abuse patient.[facility] HamiltonIn the event this information is protected by the Federal Confidentiality of Alcohol and Drug Abuse Patient Records regulations: The Federal rules restrict any use of the information to criminally investigate or prosecute any alcohol or drug abuse patient.[facility] HamiltonIn the event this information is protected by the Federal Confidentiality of Alcohol and Drug Abuse Patient Records regulations: The Federal rules restrict any use of the information to criminally investigate or prosecute any alcohol or drug abuse patient.[facility] HamiltonIn the event this information is protected by the Federal Confidentiality of Alcohol and Drug Abuse Patient Records regulations: The Federal rules restrict any use of the information to criminally investigate or prosecute any alcohol or drug abuse patient.[facility] HamiltonIn the event this information is protected by the Federal Confidentiality of Alcohol and Drug Abuse Patient Records regulations: The Federal rules restrict any use of the information to criminally investigate or prosecute any alcohol or drug abuse patient.[facility] HamiltonIn the event this information is protected by the Federal Confidentiality of Alcohol and Drug Abuse Patient Records regulations: The Federal rules restrict any use of the information to criminally investigate or prosecute any alcohol or drug abuse patient.[facility] HamiltonIn the event this information is protected by the Federal Confidentiality of Alcohol and Drug Abuse Patient Records regulations: The Federal rules restrict any use of the information to criminally investigate or prosecute any alcohol or drug abuse patient.[facility] HamiltonIn the event this information is protected by the Federal Confidentiality of Alcohol and Drug Abuse Patient Records regulations: The Federal rules restrict any use of the information to criminally investigate or prosecute any alcohol or drug abuse patient.[facility] HamiltonIn the event this information is protected by the Federal Confidentiality of Alcohol and Drug Abuse Patient Records regulations: The Federal rules restrict any use of the information to criminally investigate or prosecute any alcohol or drug abuse patient.[facility] HamiltonIn the event this information is protected by the Federal Confidentiality of Alcohol and Drug Abuse Patient Records regulations: The Federal rules restrict any use of the information to criminally investigate or prosecute any alcohol or drug abuse patient.[facility] HamiltonIn the event this information is protected by the Federal Confidentiality of Alcohol and Drug Abuse Patient Records regulations: The Federal rules restrict any use of the information to criminally investigate or prosecute any alcohol or drug abuse patient.[facility] HamiltonIn the event this information is protected by the Federal Confidentiality of Alcohol and Drug Abuse Patient Records regulations: The Federal rules restrict any use of the information to criminally investigate or prosecute any alcohol or drug abuse patient.[facility] HamiltonIn the event this information is protected by the Federal Confidentiality of Alcohol and Drug Abuse Patient Records regulations: The Federal rules restrict any use of the information to criminally investigate or prosecute any alcohol or drug abuse patient.[facility] HamiltonIn the event this information is protected by the Federal Confidentiality of Alcohol and Drug Abuse Patient Records regulations: The Federal rules restrict any use of the information to criminally investigate or prosecute any alcohol or drug abuse patient.[facility] HamiltonIn the event this information is protected by the Federal Confidentiality of Alcohol and Drug Abuse Patient Records regulations: The Federal rules restrict any use of the information to criminally investigate or prosecute any alcohol or drug abuse patient.[facility] HamiltonIn the event this information is protected by the Federal Confidentiality of Alcohol and Drug Abuse Patient Records regulations: The Federal rules restrict any use of the information to criminally investigate or prosecute any alcohol or drug abuse patient.[facility] HamiltonIn the event this information is protected by the Federal Confidentiality of Alcohol and Drug Abuse Patient Records regulations: The Federal rules restrict any use of the information to criminally investigate or prosecute any alcohol or drug abuse patient.[facility] HamiltonIn the event this information is protected by the Federal Confidentiality of Alcohol and Drug Abuse Patient Records regulations: The Federal rules restrict any use of the information to criminally investigate or prosecute any alcohol or drug abuse patient.[facility] HamiltonIn the event this information is protected by the Federal Confidentiality of Alcohol and Drug Abuse Patient Records regulations: The Federal rules restrict any use of the information to criminally investigate or prosecute any alcohol or drug abuse patient.[facility] HamiltonIn the event this information is protected by the Federal Confidentiality of Alcohol and Drug Abuse Patient Records regulations: The Federal rules restrict any use of the information to criminally investigate or prosecute any alcohol or drug abuse patient.[facility] HamiltonIn the event this information is protected by the Federal Confidentiality of Alcohol and Drug Abuse Patient Records regulations: The Federal rules restrict any use of the information to criminally investigate or prosecute any alcohol or drug abuse patient.[facility] HamiltonIn the event this information is protected by the Federal Confidentiality of Alcohol and Drug Abuse Patient Records regulations: The Federal rules restrict any use of the information to criminally investigate or prosecute any alcohol or drug abuse patient.[facility] HamiltonIn the event this information is protected by the Federal Confidentiality of Alcohol and Drug Abuse Patient Records regulations: The Federal rules restrict any use of the information to criminally investigate or prosecute any alcohol or drug abuse patient.[facility] HamiltonIn the event this information is protected by the Federal Confidentiality of Alcohol and Drug Abuse Patient Records regulations: The Federal rules restrict any use of the information to criminally investigate or prosecute any alcohol or drug abuse patient.[facility] HamiltonIn the event this information is protected by the Federal Confidentiality of Alcohol and Drug Abuse Patient Records regulations: The Federal rules restrict any use of the information to criminally investigate or prosecute any alcohol or drug abuse patient.[facility] HamiltonIn the event this information is protected by the Federal Confidentiality of Alcohol and Drug Abuse Patient Records regulations: The Federal rules restrict any use of the information to criminally investigate or prosecute any alcohol or drug abuse patient.[facility] HamiltonIn the event this information is protected by the Federal Confidentiality of Alcohol and Drug Abuse Patient Records regulations: The Federal rules restrict any use of the information to criminally investigate or prosecute any alcohol or drug abuse patient.[facility] HamiltonIn the event this information is protected by the Federal Confidentiality of Alcohol and Drug Abuse Patient Records regulations: The Federal rules restrict any use of the information to criminally investigate or prosecute any alcohol or drug abuse patient.[facility] HamiltonIn the event this information is protected by the Federal Confidentiality of Alcohol and Drug Abuse Patient Records regulations: The Federal rules restrict any use of the information to criminally investigate or prosecute any alcohol or drug abuse patient.[facility] HamiltonIn the event this information is protected by the Federal Confidentiality of Alcohol and Drug Abuse Patient Records regulations: The Federal rules restrict any use of the information to criminally investigate or prosecute any alcohol or drug abuse patient.[facility] HamiltonIn the event this information is protected by the Federal Confidentiality of Alcohol and Drug Abuse Patient Records regulations: The Federal rules restrict any use of the information to criminally investigate or prosecute any alcohol or drug abuse patient.[facility] HamiltonIn the event this information is protected by the Federal Confidentiality of Alcohol and Drug Abuse Patient Records regulations: The Federal rules restrict any use of the information to criminally investigate or prosecute any alcohol or drug abuse patient.[facility] HamiltonIn the event this information is protected by the Federal Confidentiality of Alcohol and Drug Abuse Patient Records regulations: The Federal rules restrict any use of the information to criminally investigate or prosecute any alcohol or drug abuse patient.[facility] HamiltonIn the event this information is protected by the Federal Confidentiality of Alcohol and Drug Abuse Patient Records regulations: The Federal rules restrict any use of the information to criminally investigate or prosecute any alcohol or drug abuse patient.[facility] HamiltonIn the event this information is protected by the Federal Confidentiality of Alcohol and Drug Abuse Patient Records regulations: The Federal rules restrict any use of the information to criminally investigate or prosecute any alcohol or drug abuse patient.[facility] HamiltonIn the event this information is protected by the Federal Confidentiality of Alcohol and Drug Abuse Patient Records regulations: The Federal rules restrict any use of the information to criminally investigate or prosecute any alcohol or drug abuse patient.[facility] HamiltonIn the event this information is protected by the Federal Confidentiality of Alcohol and Drug Abuse Patient Records regulations: The Federal rules restrict any use of the information to criminally investigate or prosecute any alcohol or drug abuse patient.[facility] HamiltonIn the event this information is protected by the Federal Confidentiality of Alcohol and Drug Abuse Patient Records regulations: The Federal rules restrict any use of the information to criminally investigate or prosecute any alcohol or drug abuse patient.[facility] HamiltonIn the event this information is protected by the Federal Confidentiality of Alcohol and Drug Abuse Patient Records regulations: The Federal rules restrict any use of the information to criminally investigate or prosecute any alcohol or drug abuse patient.[facility] HamiltonIn the event this information is protected by the Federal Confidentiality of Alcohol and Drug Abuse Patient Records regulations: The Federal rules restrict any use of the information to criminally investigate or prosecute any alcohol or drug abuse patient.[facility] HamiltonIn the event this information is protected by the Federal Confidentiality of Alcohol and Drug Abuse Patient Records regulations: The Federal rules restrict any use of the information to criminally investigate or prosecute any alcohol or drug abuse patient.[facility] HamiltonIn the event this information is protected by the Federal Confidentiality of Alcohol and Drug Abuse Patient Records regulations: The Federal rules restrict any use of the information to criminally investigate or prosecute any alcohol or drug abuse patient.[facility] HamiltonIn the event this information is protected by the Federal Confidentiality of Alcohol and Drug Abuse Patient Records regulations: The Federal rules restrict any use of the information to criminally investigate or prosecute any alcohol or drug abuse patient.[facility] HamiltonIn the event this information is protected by the Federal Confidentiality of Alcohol and Drug Abuse Patient Records regulations: The Federal rules restrict any use of the information to criminally investigate or prosecute any alcohol or drug abuse patient.[facility] Reason for Visit (unrecogniz ed section and content) Reason Onset Date Comments Care 12/25/2024 Specialty Diagnoses / Procedures Referred By Andrew shah Referred To Contact Gynecology / CARGO SURVEYOR Diagnoses Encounter for gynecological examination Discuss ordering quants Procedures OFFICE/OUTPATIENT EST PT MAY NOT REQ PHYS/QHP OFFICE/OUTPATIENT ESTABLISHED HIGH MDM 40 MIN EST WHI PATIENT Self Tika Pham APRN.[employer]IV[employer]ITY [employer]AC[employer] MEMBER [address] [place] [address] Phone: tel: fax: Referral ID Status Reason Start Date Expiration Date V isits Requested Visits Authorized [id number] Authorized 09/11/2024 05/30/2025 99 99 Reason Comments Refill Request Reason Onset Date Comments Refill Request 09/01/2021 Reason Comments Established Patient Specialty Diagnoses / Procedures Referred By Contgonzalo shah Referred To Contact Neurology / SLEEP DISORDERS Diagnoses Follow-up exam follow up Procedures PHYS/QHP TELEPHONE EVALUATION 5-10 MIN VIDEO SPEC EST Juan Hood Jr., MD [address] [facility] [address] [place] [address] Juan Hood Jr., MD [address] [facility] [address] [place] [address] Referral ID Status Reason Start Date Expiration Date V isits Requested Visits Authorized [id number] Waiting for Response 09/03/2021 12/17/[address] 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 Reason Onset Date Comments Refill Request Refill Request 09/05/2021 Reason Comments Medication Concern Levetiracetam Reason Comments Outside Labs Results [facility] Reason Comments Forms [place] [facility] Reason Onset Date Comments Refill Request 10/20/2021 Referral ID Status Reason Start Date Expiration Date V isits Requested Visits Authorized [id number] Authorized 05/08/2021 05/08/2022 4 4 Reason Comments Returning Patient's Call Reason Comments IUD Reason Comments IUD check Specialty Diagnoses / Procedures Referred By Contac t Referred To Contact CARGO SURVEYOR Diagnoses IUD (intrauterine device) in place IUD check strings Procedures OFFICE/OUTPATIENT [facility] 60-74 MINUTES [facility] PATIENT Self Dillon Dillard MD [address] [place] [address] Referral ID Status Reason Start Date Expiration Date Visits Re quested Visits Authorized [id number] Closed 02/27/2022 05/30/2022 1 1 Reason Comments Yearly Exam Specialty Diagnoses / Procedures Referred By Contac t Referred To Contact Neurology / NEUROLOGY Diagnoses s Procedures OFFICE/OUTPATIENT [facility] 30-39 MIN EST NI PATIENT Juan Hood Jr., MD [address] [place] [address] Juan Hood Jr., MD [address] [address] Referral ID Status Reason Start Date Expiration Date Visits Re quested Visits Authorized [id number] Closed 05/04/2022 08/02/2022 1 1 Reason Comments Fax Request Reason Comments Outside Labs Results Reason Comments Insurance Authorization Armodafinil Reason Onset Date Comments Refill Request 06/13/2022 Reason Onset Date Comments Refill Request 07/29/2022 Reason Comments Seizures Specialty Diagnoses / Procedures Referred By Contac t Referred To Contact Neurology / EPILEPSY Diagnoses Follow-up examination Virtual Visit / Follow up complete annual forms driving Procedures PHYS/QHP TELEPHONE EVALUATION 5-10 MIN VIDEO SPEC EST Yamileth Ewing MD [address] [place] [address] Beth Casillas APRN.[employer]BER [address] [place] [address] Referral ID Status Reason Start Date Expiration Date V isits Requested Visits Authorized [id number] Closed Patient Cleared - Admin/Chairm an/Director advise to proceed 11/11/2022 02/09/2023 1 1 Reason Onset Date Comments Refill Request 12/25/2022 Reason Onset Date Comments Refill Request 02/02/2023 Reason Onset Date Comments Refill Request 03/05/2023 Reason Onset Date Comments Refill Request 04/12/2023 Reason Comments Orders Reason Comments Patient Question Reason Onset Date Comments Refill Request 07/23/2023 Reason Onset Date Comments Refill Request 10/26/2023 Reason Comments Epilepsy Follow Up Reason Onset Date Comments Refill Request 11/28/2023 Reason Onset Date Comments IUD Removal 01/11/2024 Specialty Diagnoses / Procedures Referred By Contac t Referred To Contact Gynecology / CARGO SURVEYOR Diagnoses Encounter for medication management discountinued meds that provider recommended Procedures OFFICE/OUTPATIENT EST PT MAY NOT REQ PHYS/QHP OFFICE/OUTPATIENT ESTABLISHED HIGH MDM 40 MIN EST WHI PATIENT Tiburcio Summers MD [address] [place] [address] Tika Pham APRN.[employer] MEMBER [address] [facility] [address] Referral ID Status Reason Start Date Expiration Date V isits Requested Visits Authorized [id number] Authorized 01/11/2024 05/30/2024 99 99 Reason Onset Date Comments Refill Request 06/19/2024 Reason Comments Cough CYR, sinus, fever x 3 weeks Reason Comments Care + test Reason Comments Care Reason Comments New OB First OB Reason Comments Question (OB Question) Reason Onset Date Comments Care 11/01/2024 Reason Comments US Specialty Diagnoses / Procedures Referred By Contac t Referred To Contact [facility] Diagnoses 8 weeks gestation of (HCC) Procedures OBSTETRIC ULTRASOUND WHI US PREG UTERUS AFTER 1ST TRIMEST GESTATION Tika Pham APRN.[employer]IV[employer]ITY [employer] MEMBER [address] [place] [address] Phone: tel: fax: [facility] [address] [place] [address] Referral ID Status Reason Start Date Expiration Date V isits Requested Visits Authorized [id number] Closed Auto-Generate d Referral 10/02/2024 10/02/2025 1 1 Reason Onset Date Comments Care 11/27/2024 Reason Comments Medication Authorization Levetiractam Referral ID Status Reason Start Date Expiration Date V isits Requested Visits Authorized [id number] Closed Auto-Generate d Referral 10/02/2024 10/02/2025 1 1 Reason Onset Date Comments Care 01/22/2025 Specialty Diagnoses / Procedures Referred By Andrew t 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 Contact 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 / CARGO SURVEYOR Diagnoses OB Procedures [facility] [address] [address] Phone: tel: Buzz Carranza MD [address] [facility] [address] Phone: tel: fax: Referral ID Status Reason Start Date Expiration Date V isits Requested Visits Authorized [id number] Authorized 01/22/2025 05/30/2025 99 99 Care Teams (unrecognized sec tion and content) Project Administrative Assistant Relationship Specialty Start Date End Date Tiburcio Summers MD [address] [facility] [place], [place] [address] PCP - General Family Practice 03/22/15 Project Administrative Assistant Relationship Specialty Start Date End Date Tiburcio Summers MD [address] [facility] [place], [place] [id number] PCP - General Family Practice 03/22/15 Project Administrative Assistant Relationship Specialty Start Date End Date Tiburcio Summers MD [address] [facility] [place] [id number] PCP - General Family Practice 03/22/15 Project Administrative Assistant Relationship Specialty Start Date End Date Tiburcio Summers MD [address] [facility] [place] [address] PCP - General Family Practice 03/22/15 Project Administrative Assistant Relationship Specialty Start Date End Date Tiburcio Summers MD [address] [facility] [place] [address] PCP - General Family Practice 03/22/15 Project Administrative Assistant Relationship Specialty Start Date End Date Tiburcio Summers MD [address] [facility] [place] [address] PCP - General Family Practice 03/22/15 Project Administrative Assistant Relationship Specialty Start Date End Date Tiburcio Summers MD [address] [place] [address] PCP - General Family Practice 03/22/15 Project Administrative Assistant Relationship Specialty Start Date End Date Tiburcio Summers MD [address] [place] [address] PCP - General Family Practice 03/22/15 Project Administrative Assistant Relationship Specialty Start Date End Date Tiburcio Summers MD [address] [place] [address] PCP - General Family Practice 03/22/15 Project Administrative Assistant Relationship Specialty Start Date End Date Tiburcio Summers MD [address] [place] [address] PCP - General Family Medicine 03/22/15 Project Administrative Assistant Relationship Specialty Start Date End Date Tiburcio Summers MD [address] [place] [address] PCP - General Family Medicine 03/22/15 Project Administrative Assistant Relationship Specialty Start Date End Date Tiburcio Summers MD [address] [place] [address] [place] [address] PCP - General Family Medicine 03/22/15 Project Administrative Assistant Relationship Specialty Start Date End Date Tiburcio Summers MD [address] [place] [address] [place] [address] PCP - General Family Medicine 03/22/15 Project Administrative Assistant Relationship Specialty Start Date End Date Tiburcio Summers MD [address] [place] [address] [place] [address] PCP - General Family Medicine 03/22/15 Project Administrative Assistant Relationship Specialty Start Date End Date Tiburcio Summers MD [address] [place] [address] [place] [address] PCP - General Family Medicine 03/22/15 Project Administrative Assistant Relationship Specialty Start Date End Date Tiburcio Summers MD [address] [place] [address] [place] [address] PCP - General Family Medicine 03/22/15 Project Administrative Assistant Relationship Specialty Start Date End Date Tiburcio Summers MD [address] [place] [address] [place] [address] PCP - General Family Medicine 03/22/15 Project Administrative Assistant Relationship Specialty Start Date End Date Tiburcio Summers MD [address] [place] [address] [place] [address] PCP - General Family Medicine 03/22/15 Team Status: Active Member Role Status Dates No Primary Care Physician Family Provider Active Dr. Amilcar Summers MD Primary Care Provider Activ e Team Status: Active Member Role Status Dates Dr. Amilcar Summers MD Primary Care Provider Activ e Dr. Bobby Reardon MD Attending Provider Active Marianna Cutler SURVEY RESEARCH PROFESSOR, SURVEY RESEARCH PROFESSOR-C Referring Provider Active Team Status: Inactive Member Role Status Dates Dr. Amilcar Summers MD Primary Care Provider Activ e Marianna Cutler SURVEY RESEARCH PROFESSOR, SURVEY RESEARCH PROFESSOR-C Attending Provider, Referring Pro vider Active Team Status: Inactive Member Role Status Dates Dr. Amilcar Summers MD Primary Care Provider Yesenia EWING MD Attending Provider, Referring Prov ider Active Project Administrative Assistant Relationship Specialty Start Date End Date Tiburcio Summers MD [address] [place] [address] PCP - General Family Medicine 03/22/15 Project Administrative Assistant Relationship Specialty Start Date End Date Tiburcio Summers MD [address] [place] [address] PCP - General Family Medicine 03/22/15 Project Administrative Assistant Relationship Specialty Start Date End Date Tiburcio Summers MD [address] [place] [address] PCP - General Family Medicine 03/22/15 Project Administrative Assistant Relationship Specialty Start Date End Date Tiburcio Summers MD [address] [place] [address] PCP - General Family Medicine 03/22/15 Project Administrative Assistant Relationship Specialty Start Date End Date Tiburcio Summers MD [address] [place] [address] PCP - General Family Medicine 03/22/15 Project Administrative Assistant Relationship Specialty Start Date End Date Tiburcio Summers MD [address] [place] [address] PCP - General Family Medicine 03/22/15 Project Administrative Assistant Relationship Specialty Start Date End Date Tiburcio Summers MD [address] [place] [address] PCP - General Family Medicine 03/22/15 Project Administrative Assistant Relationship Specialty Start Date End Date Tiburcio Summers MD [address] [place] [address] PCP - General Family Medicine 03/22/15 Project Administrative Assistant Relationship Specialty Start Date End Date Tiburcio Summers MD [address] [place] [address] PCP - General Family Medicine 03/22/15 Project Administrative Assistant Relationship Specialty Start Date End Date Tiburcio Summers MD [address] [place] [address] PCP - General Family Medicine 03/22/15 Project Administrative Assistant Relationship Specialty Start Date End Date Tiburcio Summers MD [address] [place] [address] PCP - General Family Medicine 03/22/15 Project Administrative Assistant Relationship Specialty Start Date End Date Tiburcio Summers MD [address] [place] [address] PCP - General Family Medicine 03/22/15 Project Administrative Assistant Relationship Specialty Start Date End Date Tiburcio Summers MD [address] [place] [address] PCP - General Family Medicine 03/22/15 Project Administrative Assistant Relationship Specialty Start Date End Date Tiburcio Summers MD [address] [place] [address] PCP - General Family Medicine 03/22/15 Project Administrative Assistant Relationship Specialty Start Date End Date Tiburcio Summers MD [address] [place] [address] PCP - General Family Medicine 03/22/15 Project Administrative Assistant Relationship Specialty Start Date End Date Tiburcio Summers MD [address] [place] [address] PCP - General Family Medicine 03/22/15 Project Administrative Assistant Relationship Specialty Start Date End Date Tiburcio Summers MD [address] [place] [address] PCP - General Family Medicine 03/22/15 Project Administrative Assistant Relationship Specialty Start Date End Date Tiburcio Summers MD [address] [place] [address] PCP - General Family Medicine 03/22/15 Project Administrative Assistant Relationship Specialty Start Date End Date Tiburcio Summers MD [address] [place] [address] PCP - General Family Medicine 03/22/15 Project Administrative Assistant Relationship Specialty Start Date End Date Tiburcio Summers MD [address] [place] [address] PCP - General Family Medicine 03/22/15 Project Administrative Assistant Relationship Specialty Start Date End Date Tiburcio Summers MD [address] [place] [address] PCP - General Family Medicine 03/22/15 Project Administrative Assistant Relationship Specialty Start Date End Date Tiburcio Summers MD [address] [place] [address] PCP - General Family Medicine 03/22/15 Project Administrative Assistant Relationship Specialty Start Date End Date Tiburcio Summers MD [address] [place] [address] PCP - General Family Medicine 03/22/15 Project Administrative Assistant Relationship Specialty Start Date End Date Tiburcio Summers MD [address] [place] [address] PCP - General Family Medicine 03/22/15 Project Administrative Assistant Relationship Specialty Start Date End Date Tiburcio Summers MD [address] [place] [address] PCP - General Family Medicine 03/22/15 Project Administrative Assistant Relationship Specialty Start Date End Date Tiburcio Summers MD [address] [place] [address] PCP - General Family Medicine 03/22/15 Project Administrative Assistant Relationship Specialty Start Date End Date Tiburcio Summers MD [address] [place] [address] PCP - General Family Medicine 03/22/15 Project Administrative Assistant Relationship Specialty Start Date End Date Tiburcio Summers MD [address] [place] [address] PCP - General Family Medicine 03/22/15 Project Administrative Assistant Relationship Specialty Start Date End Date Tiburcio Summers MD [address] [place] [address] PCP - General Family Medicine 03/22/15 Project Administrative Assistant Relationship Specialty Start Date End Date Tiburcio Summers MD [address] [place], [place] [address] PCP - General Family Medicine 03/22/15 Project Administrative Assistant Relationship Specialty Start Date End Date Tiburcio Summers MD [address] [place], [place] [address] PCP - General [facility] Medicine 03/22/15 Project Administrative Assistant Relationship Specialty Start Date End Date Tiburcio Summers MD [address] [place], [place] [address] PCP - [facility] 03/22/15 Project Administrative Assistant Relationship Specialty Start Date End Date Tiburcio Summers MD [address] [place], [place] [id number] PCP - General [facility] Medicine 03/22/15 Goals (unrecognized section and content) Goals may be documented in a n alternate sectionGoals may be documented in an alternate sectionGoals may be documented in an alternate section FOR RECORDS PERTAINING TO PATIENTS WHO ARE OR HAVE BEEN ENROLLED IN A CHEMICAL DEPENDENCY/SUBSTANCEABUSE PROGRAM, SOME INFORMATION MAY BE OMITTED. This clinical summary was aggregated from multiple sources. Caution should be exercised in using it in the provision of clinical care. This summary normalizes information from multiple sources, and as a consequence, information in this document may materially change the coding, format and clinical context of patient data. In addition, data may be omitted in some cases. CLINICAL DECISIONS SHOULD BE BASED ON THE PRIMARY CLINICAL RECORDS. [facility]. provides no warranty or guarantee of the accuracy or completeness of information in this document.
[2025-05-06] MEDS: Lactated Ringers 1,000 ML 50 ML IV (19:41)
[2025-05-06 19:49] VITALS: BP 107/70; PULSE 75
[2025-05-06 19:50] VITALS: PULSE 74; RESP 16; TEMP 36.3; O2SAT 99
[2025-05-06 19:51] VITALS: PULSE 162; O2SAT 100; O2SAT 81
[2025-05-06 19:59] LABS: Hematocrit 33.9 % (37-47); Hemoglobin 11.4 g/dL (12.0-15.0); Immature Granulocytes Count 0.040 X10^3/uL (0.0-0.0); Mean Corp Hgb Conc 33.6 g/dL (32-36); Mean Corpuscular Volume 94.4 fL (81-99); Mean Platelet Vol. 11.5 fl (6.2-12.0); NRBC Flagged by Analyzer 0 % (0-5); Platelet Count 132 K/mm3 (150-450); RBC Distribution Width CV 12.6 % (11.6-14.6); RBC Distribution Width SD 43.6 fl (35.1-43.9); Red Blood Count 3.59 M/mm3 (4.2-5.4); White Blood Count 6.9 K/mm3 (4.4-11.0)
--- NOTE | 2025-05-06 20:29 | HP.PCM.OB_ITS ---
HPI - General General Date of Admission: 05/06/25 HPI Narrative JALEEL ORELLANA, is a 29 F who presents for induction of labor. Maternal Data Information MARIA T Calculator Estimated Delivery Date Method Current WG Current Estimate 05/11/25 Manual 39w 2d PFSH PFSH Medical History (Updated 05/06/25 @ 20:36 by Romelia Suresh CNM) Anxiety Seizures Gestational diabetes Home Medications ?Medication ?Instructions ?Recorded ?Last Taken ?Type dicyclomine 10 mg capsule 20 mg (2 x 10 mg) PO TIDAC u nknown 10/08/17 Unknown Rx #20 caps levetiracetam 750 mg tablet 1,000 mg PO BID epilespy 0 10/08/17 Unknown History (Keppra) ondansetron 4 mg disintegrating 4 mg PO Q8H PRN PRN Na usea #10 tabs 10/08/17 Unknown Rx tablet lamotrigine 200 mg tablet 250 mg PO BID epilespsy 12/22 Unknown History (Lamictal) pantoprazole 40 mg tablet,delayed 40 mg PO DAILY indig estion 05/06/25 Unknown History release Allergy/AdvReac Type Severity Reaction Status Date / Time No Known Allergies Allergy Verified 05/06/25 19:34 Surgical History History of surgery Social History Smoking Status: Never smoker NST FHR Rate Baby A Baseline: 140 Variability:: Moderate Accelerations:: 15 x 15 Decelerations:: None NST Reactive:: Yes FHR Category:: Category I Uterine Activity:: Irritability ROS Eyes Eyes: Denies blurry vision, change in vision or spots in vision ENT HEENT: Denies dizziness or headache(s) Cardiovascular Cardiovascular: Denies abdominal pain, chest pain or dyspnea Respiratory/Chest Respiratory/Chest: Denies cough, dyspnea, shortness of breath at rest or shortness of breath with exertion Gastrointestinal Gastrointestinal: Denies abdominal pain, diarrhea or vomiting Genitourinary Genitourinary: Denies change in urinary stream, difficulty urinating or dysuria Musculoskeletal Musculoskeletal: Reports none Integumentary Integumentary: Denies rash Neurologic Neurologic: Denies dizziness, headache(s), memory loss or weakness Psychiatric Psychiatric: Reports none Vital Signs Vital Signs Vital Signs: 05/06/25 19:49 05/06/25 19:49 05/06/25 19:50 Temperature Temperature Source Temporal Pulse Rate 75 Respiratory Rate Blood Pressure 107/70 BP Systolic 107 BP Diastolic 70 Pulse Ox 05/06/25 19:50 05/06/25 19:50 05/06/25 19:50 Temperature Temperature Source Pulse Rate 74 Respiratory Rate 16 Blood Pressure BP Systolic BP Diastolic Pulse Ox 99 05/06/25 19:50 05/06/25 19:51 05/06/25 19:51 Temperature 97.4 F L Temperature Source Pulse Rate 162 H Respiratory Rate Blood Pressure BP Systolic BP Diastolic Pulse Ox 81 05/06/25 19:51 Temperature Temperature Source Pulse Rate Respiratory Rate Blood Pressure BP Systolic BP Diastolic Pulse Ox 100 Weight Weight: 142 lb 6 oz Body Mass Index (BMI) 26.0 Physical Exam Const alert, oriented x3 and no apparent distress General Appearance: cooperative Orientation / Consciousness: awake Exam Limitations: no limitations HEENT normocephalic Head and Scalp: normal to inspection Eyes General Eye: normal appearance of both eyes Neck full ROM and no lymphadenopathy Lymph Lymphatic: no lymphadenopathy noted Chest inspection of chest normal Resp normal respiratory effort, normal air movement and clear to auscultation bilaterally Effort and Inspection: able to speak in complete sentences and symmetric chest movement Cardio regular rate and regular rhythm GI normal to inspection, nondistended, normoactive bowel sounds Manual OB Exam: presentation cephalic Back/Spine normal ROM Extremity full ROM and no calf tenderness Skin no rashes or lesions noted General Skin Exam: no breakdown Neuro oriented x3 and CN's II-XII intact bilaterally Psych mental status grossly normal and thought process normal Labs Labs Labs: Blood Type O POSITIVE Antibody Screen Pending Hct, (37-47) 33.9 % L Hgb, (12.0-15.0) 11.4 g/dL L Syphilis Total Ab Pending N.gonorrhoeae DNA (ARIELLE), (Negative-) Negative Assessment & Plan (1) Encounter for induction of labor: (2) 39 weeks gestation of : (3) Epilepsy: (4) Gestational thrombocytopenia: PLAN: Plan CE 0.5/60/-3 Attempted selby bulb placement but unable to get through cervix Start Cytotec 25 mcg PO every 4 hours x 6 doses total Pain medications as needed Dr. Kee updated and is collaborating physician
[2025-05-06 20:37] LABS: Syphilis Antibodies Nonreactive (Nonreactive)
[2025-05-06 22:37] VITALS: BP 111/70; PULSE 75
[2025-05-07] VITALS (75 sets, daily range): BP systolic 99–143; BP diastolic 55–85; PULSE 70–183; RESP 16–18; TEMP 36.1–37.6; O2SAT 76–100
[2025-05-07] MEDS: 0.9% Normal Saline Single 100 ML IV.SOLN. INTRA-UTER (06:18)
--- NOTE | 2025-05-07 06:20 | PCM.PN.CNM ---
Subjective Subjective Patient seen at bedside. Starting to feel contractions. Slept through the night. Objective Data Objective Data Vital Signs: Vital Signs Temp Pulse Resp BP Pulse Ox 98.1 F 75 16 109/65 100 05/07/25 04:58 05/07/25 04:58 05/07/25 04:58 05/07/25 04:58 05/07/25 04:58 Weight: 142 lb 6 oz Body Mass Index (BMI) 26.0 Intake & Output: Intake and Output for Last 24 Hours 05/05/25 05/06/25 05/07/25 23:59 23:59 23:59 Intake Total 0.83 / 0.83 Balance 0.83 / 0.83 Lab / Micro Data 05/06/25 19:41 Labs: Laboratory Results - last 24 hr 05/06/25 19:41: WBC 6.9, RBC 3.59 L, Hgb 11.4 L, Hct 33.9 L, MCV 94.4, MCH 31.8, MCHC 33.6, RDW Std Deviation 43.6, RDW Coeff of Doug 12.6, Plt Count 132 L, MPV 11.5, Immature Gran % (Auto) 0.600, Neut % (Auto) 70.1 H, Lymph % (Auto) 20.5, [place] % (Auto) 7.3, Eos % (Auto) 0.9, Baso % (Auto) 0.6, Absolute Neuts (auto) 4.8, Absolute Lymphs (auto) 1.41, Nucleated RBC % 0, Syphilis Total Ab Nonreactive, Blood Type O POSITIVE, Antibody Screen NEGATIVE 05/06/25 21:32: POC Glucose 110 H 05/06/25 22:39: POC Glucose 105 05/07/25 02:41: POC Glucose 80 ROS Eyes Eyes: Denies blurry vision, change in vision or spots in vision ENT HEENT: Denies dizziness or headache(s) Cardiovascular Cardiovascular: Denies abdominal pain, chest pain or dyspnea Respiratory/Chest Respiratory/Chest: Denies cough, dyspnea, shortness of breath at rest or shortness of breath with exertion Gastrointestinal Gastrointestinal: Denies abdominal pain, diarrhea or vomiting Genitourinary Genitourinary: Denies change in urinary stream, difficulty urinating or dysuria Musculoskeletal Musculoskeletal: Reports none Integumentary Integumentary: Denies rash Neurologic Neurologic: Denies dizziness, headache(s), memory loss or weakness Psychiatric Psychiatric: Reports none Physical Exam Const alert, oriented x3 and no apparent distress General Appearance: cooperative Orientation / Consciousness: awake Exam Limitations: no limitations HEENT normocephalic Head and Scalp: normal to inspection Eyes General Eye: normal appearance of both eyes Neck full ROM and no lymphadenopathy Lymph Lymphatic: no lymphadenopathy noted Chest inspection of chest normal Resp normal respiratory effort, normal air movement and clear to auscultation bilaterally Effort and Inspection: able to speak in complete sentences and symmetric chest movement Cardio regular rate and regular rhythm GI normal to inspection, nondistended, normoactive bowel sounds Manual OB Exam: presentation cephalic Back/Spine normal ROM Extremity full ROM and no calf tenderness Skin no rashes or lesions noted General Skin Exam: no breakdown Neuro oriented x3 and CN's II-XII intact bilaterally Psych mental status grossly normal and thought process normal NST FHR Rate Baby A Baseline: 140 Variability:: Moderate Accelerations:: 15 x 15 Decelerations:: None NST Reactive:: Yes FHR Category:: Category I Uterine Activity:: Occasional Assessment & Plan (1) Gestational thrombocytopenia: (2) Epilepsy: (3) 39 weeks gestation of : (4) Encounter for induction of labor: (5) Anxiety: PLAN: Plan Cytotec 25 mcg PO -3rd dose given at 0500 CE /-2 Paul bulb placed without difficulty and filled with 30 cc N/S Able to eat light breakfast Dr. Carranza updated and taking over management
[2025-05-07] MEDS: Oxytocin 15 Units/NS 250ml 15 UNITS/250 ML IV.SOLN 2 UNITS IV (09:08)
--- NOTE | 2025-05-07 11:56 | PCM.PN.OB ---
Subjective Subjective Pt doing well. Comfortable with ctx's. Objective Data Objective Data Vital Signs: Vital Signs Temp Pulse Resp BP Pulse Ox 97.0 F L 78 16 120/76 82 05/07/25 10:54 05/07/25 10:55 05/07/25 10:54 05/07/25 10:55 05/07/25 10:08 Weight: 142 lb 6 oz Body Mass Index (BMI) 26.0 Intake & Output: Intake and Output for Last 24 Hours 05/05/25 05/06/25 05/07/25 23:59 23:59 23:59 Intake Total 0.83 / 0.83 4.8 / 4.8 Balance 0.83 / 0.83 4.8 / 4.8 Lab / Micro Data 05/06/25 19:41 Labs: Laboratory Results - last 24 hr 05/06/25 19:41: WBC 6.9, RBC 3.59 L, Hgb 11.4 L, Hct 33.9 L, MCV 94.4, MCH 31.8, MCHC 33.6, RDW Std Deviation 43.6, RDW Coeff of Doug 12.6, Plt Count 132 L, MPV 11.5, Immature Gran % (Auto) 0.600, Neut % (Auto) 70.1 H, Lymph % (Auto) 20.5, [place] % (Auto) 7.3, Eos % (Auto) 0.9, Baso % (Auto) 0.6, Absolute Neuts (auto) 4.8, Absolute Lymphs (auto) 1.41, Nucleated RBC % 0, Syphilis Total Ab Nonreactive, Blood Type O POSITIVE, Antibody Screen NEGATIVE 05/06/25 21:32: POC Glucose 110 H 05/06/25 22:39: POC Glucose 105 05/07/25 02:41: POC Glucose 80 05/07/25 06:24: POC Glucose 69 L Assessment & Plan (1) Anxiety: (2) Gestational thrombocytopenia: (3) Epilepsy: (4) 39 weeks gestation of : (5) Encounter for induction of labor: PLAN: Cvx /1, head well applied. AROM performed in usual sterile fashion with return of a small amount of clear fluid. Patient planning epidural.
[2025-05-07] MEDS: Lactated Ringers 1,000 ML 999 ML IV (13:31)
[2025-05-07] MEDS: fentaNYL-bupivacaine (epidural) 100 ML BAG EPIDURAL ×2 (14:16→18:46)
[2025-05-07] MEDS: Lactated Ringers 1,000 ML 200 ML IV (18:11)
[2025-05-07] MEDS: LACTATED RINGERS 500 ML 999 ML IV (20:45)
--- NOTE | 2025-05-07 21:50 | PCM.PN.OB ---
Subjective Subjective Patient comfortable with epidural. Objective Data Objective Data Vital Signs: Vital Signs Temp Pulse Resp BP Pulse Ox 98.3 F 183 H 18 140/62 H 76 05/07/25 21:44 05/07/25 21:45 05/07/25 21:44 05/07/25 21:43 05/07/25 21:45 Weight: 142 lb 6 oz Body Mass Index (BMI) 26.0 Intake & Output: Intake and Output for Last 24 Hours 05/05/25 05/06/25 05/07/25 23:59 23:59 23:59 Intake Total 0.83 / 0.83 2070.50 / 2070.50 Output Total 400 / 400 Balance 0.83 / 0.83 1670.50 / 1670.50 Lab / Micro Data 05/06/25 19:41 Labs: Laboratory Results - last 24 hr 05/06/25 21:32: POC Glucose 110 H 05/06/25 22:39: POC Glucose 105 05/07/25 02:41: POC Glucose 80 05/07/25 06:24: POC Glucose 69 L 05/07/25 14:23: POC Glucose 61 L 05/07/25 14:53: POC Glucose 73 L 05/07/25 18:04: POC Glucose 100 05/07/25 20:29: POC Glucose 70 L Assessment & Plan (1) Anxiety: (2) Gestational thrombocytopenia: (3) Epilepsy: (4) Encounter for induction of labor: PLAN: Cvx 10/100/+1 and patient pushing with good maternal effort. (5) 39 weeks gestation of :
[2025-05-07] MEDS: Oxytocin 15 Units/NS 250ml 15 UNITS/250 ML IV.SOLN 334 UNITS IV (22:55)
--- NOTE | 2025-05-07 23:24 | PLAC_PTH ---
PATIENT: JALEEL ORELLANA LOC: [facility] U#:[id number] AGE/SX: 29/F ROOM: WP006 RE05/06/[address]: Romelia Suresh CNM : 1995 BED: 1 DIS: 05/09/2025 SPEC #: [id number] RECD: 05/08/25 10:13 STATUS: YUMIKO REArlene #: [id number] TRISTIN: 05/07/25 23:[address]: Romelia Suresh DEPT: SURGICAL PATHOLOGY RECD BY: Shanika Lira ENTERED: 05/08/25 10:14 SP TYPE: PLACENTA OTHR DR: Dr. Aubrey Summers MD Tissues: Placenta, NOS Procedures: Surgery Specimen Level V HEADER OPERATION: Vaginal delivery PRE-OP DIAGNOSIS: Accessory lobe of placenta TISSUE SUBMITTED: A- Placenta MICROSCOPIC DIAGNOSIS A. 3rd trimester barron placenta, gestation 39 weeks, vaginal delivery: - Edematous amnionic membrane with acute chorioamnionitis. - Tri-vessel umbilical cord with no specific pathologic change. - Bilobed placental disc with accessory lobe, 325 grams (< 3rd percentile). MICROSCOPIC DESCRIPTION Slides are reviewed. GROSS DESCRIPTION A. Received in formalin labeled with the patient's name and date of is a 325 g, bilobed placental disc with dividing membranes, collectively measuring 17.2 x 14.8 x 2.4 cm. There is a third accessory lobe located centrally within the dividing membranes of the 2 lobes, with bridging vasculature, measuring 2.8 x 2.8 x 0.6 cm. The minimal attached membranes are hendrix and translucent, inserting marginally. The tri-vascular, hypocoiled umbilical cord measures 43.1 cm in length by 1.0-1.7 cm; the umbilical cord has a furcate insertion into the dividing membranes with vessels spanning to both lobes, inserting approximately 2.5 cm from the surface. The surface is blue and glistening with arborizing vasculature. The maternal surface is dark red-brown with a focally torn and frayed appearance and patchy, loosely adherent blood clot, predominantly near the peripheral edge of the disc. When reapproximated, the maternal surface appears near complete. Sectioning reveals dark red, spongy parenchyma with focal fibrin (<10%). [employer] Fisher sections are submitted as follows: A1: Membrane rollA2: Umbilical cordA3: Placenta including possible accessory lobeA4: Placenta DC 05/09/2025 CPT:48891
[2025-05-07] MEDS: Oxytocin 15 Units/NS 250ml 15 UNITS/250 ML IV.SOLN 83 UNITS IV (23:25)
--- NOTE | 2025-05-07 23:26 | EX.PCM.OBVAG ---
Assessment & Plan (1) Vaginal delivery: (2) Anxiety: (3) Epilepsy: (4) Second degree perineal laceration: Maternal Data Information MARIA T Calculator Estimated Delivery Date Method Current WG Current Estimate 05/11/25 Manual 39w 3d Vaginal Delivery Maternal Presentation Maternal Presentation: Medically Indicated Induction Type of Induction: Pitocin, Paul Bulb, Amniotomy and Cytotec Medical Reason for Induction: Other (epilepsy) Vaginal Delivery Information Procedure Performed: Spontaneous Vaginal Delivery Surgeon/Practitioner: Bethany Carranza Date of Procedure: 05/07/25 Pre-Procedure Diagnosis: 39 week gestation, epilepsy Post-Procedure Diagnosis: As above Type of anesthesia: Epidural Special Medications: None Estimated Blood Loss: 200 mL Findings Description of procedure: The patient was complete and pushing. The head of the was delivered in JULIETTE position. A loose nuchal cord x 1 was reduced. The anterior shoulder was delivered with gentle downward traction, followed by the posterior shoulder and body without any excessive traction, force, or delay. Terminal meconium was noted at time of delivery. A vigorous viable female infant was delivered and placed on maternal abdomen. The cord was clamped after a 60 second delay, and then cut by the father of the baby. Cord blood was obtained. The placenta delivered spontaneously and was noted to be intact with an accessory lobe noted. The placenta was sent to pathology for review. The uterus was explored x 1 with no retained placenta or membranes noted. Fundus firm and bleeding hemostatic with Pitocin running. 3-0 Vicryl was used to repair a second-degree perineal laceration in usual fashion. There was a superficial left vaginal wall laceration that was bleeding in 1 area. The bleeding was made hemostatic with a single [id number] stitch using the 3-0 Vicryl. Hemostasis was then confirmed. A vaginal sweep was performed. Sponge and sharp counts were correct. Procedure findings: Vigorous VFI with Apgars 8, 9 Terminal meconium Loose nuchal cord x 1 without compression Second degree perineal laceration Presentation: Vertex Amniotic Membrane Rupture Type: Artificial Amniotic Fluid Description: Clear Placental Delivery Description: Spontaneous Placenta Disposition: [facility] Specimen collected: No Cord Vessel Description: 3 Vessels Cord Entanglement: Around neck x 1, loose Nuchal Cord Compression: Without compression Infant A Gender: Male (1 minute): 8 (5 minute): 9 Delayed Cord Clamping: Yes [facility] Manager currency exchange specialist: No Post Vaginal Deli Medications given after delivery: IV Pitocin Episiotomy Description: None Laceration: 2nd degree Complication Complications: No
[2025-05-08] VITALS (27 sets, daily range): BP systolic 103–128; BP diastolic 57–85; PULSE 62–120; RESP 16–18; TEMP 36.6–37.1; O2SAT 96–100
[2025-05-08] MEDS: Benzocaine/Lanolin/Aloe Vera 85 GM Spray 1 SPRAY TOPICAL (03:41)
[2025-05-08] MEDS: GLYCERIN/WITCH HAZEL (TUCKS) MED..PAD 1 EACH TOPICAL (03:41)
--- NOTE | 2025-05-08 08:11 | PCM.PN.OB ---
Subjective Subjective Doing well. Ambulating and voiding without difficulty. Mild lochia. Breast feeding. Objective Data Objective Data Vital Signs: Vital Signs Temp Pulse Resp BP Pulse Ox O2 Del Method 97.8 F 90 16 108/83 H 97 Room Air 05/08/25 08:00 05/08/25 08:00 05/08/25 08:00 05/08/25 08:00 05/08/25 04:00 05/08/25 04:00 Oxygen Delivery Method Room Air Weight: 64.58 kg Body Mass Index (BMI) 26.0 Intake & Output: Intake and Output for Last 24 Hours 05/06/25 05/07/25 05/08/25 23:59 23:59 23:59 Intake Total 0.83 / 0.83 3748.17 / 3748.17 250 / 250 Output Total 1150 / 1150 450 / 450 Balance 0.83 / 0.83 2598.17 / 2598.17 -200 / -200 Lab / Micro Data 05/06/25 19:41 Labs: Laboratory Results - last 24 hr 05/07/25 14:23: POC Glucose 61 L 05/07/25 14:53: POC Glucose 73 L 05/07/25 18:04: POC Glucose 100 05/07/25 20:29: POC Glucose 70 L 05/07/25 21:43: POC Glucose 93 05/07/25 23:37: POC Glucose 94 ROS Constitutional Constitutional: Denies headache(s) Cardiovascular Cardiovascular: Denies chest pain or dyspnea Gastrointestinal Gastrointestinal: Denies nausea or vomiting Genitourinary Genitourinary: Denies dysuria Physical Exam Const alert, oriented x3 and no apparent distress General Appearance: cooperative and comfortable Eyes PERRL and EOMs intact bilaterally Resp normal respiratory effort GI soft to palpation and non-tender Uterus Palpation: uterus fundus firm ( below umbilicus) Extremity normal to inspection and full ROM Neuro oriented x3 and CN's II-XII intact bilaterally Psych mental status grossly normal Assessment & Plan (1) Gestational thrombocytopenia: QUALIFIERS: Trimester: third trimester Qualified Code(s): O99.113 - Other diseases of the blood and blood-forming organs and certain disorders involving the immune mechanism complicating , third trimester; D69.6 - Thrombocytopenia, unspecified (2) Vaginal delivery: PLAN: Plan Baby in SCN. Pumping.
[2025-05-08] MEDS: Senna/Docusate Sodium 1 Tablet PO (21:04)
[2025-05-09 02:19] VITALS: BP 114/84; PULSE 82; RESP 16; TEMP 36.7; O2SAT 98
[2025-05-09] MEDS: Senna/Docusate Sodium 1 Tablet PO (03:19)
--- NOTE | 2025-05-09 07:34 | PN.OBGYN_ITS ---
Subjective Subjective Doing well. Ambulating and voiding without difficulty. Mild lochia. Breast feeding. Objective Data Objective Data Vital Signs: Vital Signs Temp Pulse Resp BP Pulse Ox O2 Del Method 98.1 F 82 16 114/84 H 98 Room Air 05/09/25 02:19 05/09/25 02:19 05/09/25 02:19 05/09/25 02:19 05/09/25 02:19 05/09/25 02:19 Oxygen Delivery Method Room Air Weight: 64.58 kg Body Mass Index (BMI) 26.0 Intake & Output: Intake and Output for Last 24 Hours 05/07/25 05/08/25 05/09/25 23:59 23:59 23:59 Intake Total 3748.17 / 3748.17 250 / 250 Output Total 1150 / 1150 450 / 450 Balance 2598.17 / 2598.17 -200 / -200 Lab / Micro Data 05/06/25 19:41 ROS Constitutional Constitutional: Denies headache(s) Cardiovascular Cardiovascular: Denies chest pain or dyspnea Gastrointestinal Gastrointestinal: Denies nausea or vomiting Genitourinary Genitourinary: Denies dysuria Physical Exam Const alert, oriented x3 and no apparent distress General Appearance: cooperative and comfortable Eyes PERRL and EOMs intact bilaterally Resp normal respiratory effort GI soft to palpation and non-tender Narrative: Fundus firm, below umbilicus. Uterus Palpation: uterus fundus firm ( below umbilicus) Extremity normal to inspection and full ROM Neuro oriented x3 and CN's II-XII intact bilaterally Psych mental status grossly normal Assessment & Plan (1) Vaginal delivery: PLAN: Plan Discharge to [facility] status. Baby in SCN
--- NOTE | 2025-05-09 07:35 | DS.PCM_ITS ---
Providers Date of Admission: 05/06/25 Date of Discharge: 05/09/25 Primary Care Physician: Dr. Aubrey Summers MD Reason For Visit: VAG Diagnosis Discharge Diagnosis (1) Vaginal delivery: Status: Acute Code(s): O80 - Encounter for full-term uncomplicated delivery Plan Discharge to [facility] status. Baby in SCN Medications at Discharge Home Medications dicyclomine 10 mg capsule 20 mg (2 x 10 mg) PO TIDAC unknown #20 caps 10/08/17 levetiracetam 750 mg tablet (Keppra) 1,000 mg PO BID epilespy 10/08/17 lamotrigine 200 mg tablet (Lamictal) 250 mg PO BID epilespsy 05/06/25 pantoprazole 40 mg tablet,delayed release 40 mg PO DAILY indigestion 05/06/25 Hospital Course Operations None Procedures None Summary of Care Provided Minutes Spent on Discharge: 20 Hospital Course: . Baby with low blood sugar and in special care Physical Exam Const alert and no apparent distress Narrative: Fundus firm, below umbilicus. Weight / BMI Weight Weight: 64.58 kg Body Mass Index (BMI) 26.0 PRE- weight 53.977 kg PRE- Body Mass Index 21.9 (BMI) ABG / Lab / Microbiology Data 05/06/25 19:41 D/C Instructions May resume sexual activity in: 6 weeks DC O2, CPAP, BIPAP Needs Home O2 Discharge instructions: No Please Follow Up With: Jasmyn Kitchen MD When: Follow up with our office in 1-2 and 6 weeks or as needed. [phone] Meaningful Use Info Meaningful Use Meaningful Use Diagnoses (Choose all that apply): None applicable Discharge Plan Admission Admit Date/Time: 05/06/25 19:12 Primary Reason for Your Visit: labor Attending Provider: Romelia Suresh Primary Care Provider: Aubrey Summers Discharge Orders/Prescriptions Prescriptions: Continued levetiracetam [Keppra] 750 MG tablet 1,000 mg PO BID dicyclomine 10 MG capsule 20 mg PO TIDAC Qty: 20 0RF lamotrigine [Lamictal] 200 mg tablet 250 mg PO BID pantoprazole 40 mg tablet,delayed release (DR/EC) 40 mg PO DAILY Discontinued ondansetron 4 MG tablet 4 mg PO Q8H PRN PRN (Reason: Nausea) Qty: 10 0RF Referrals / Follow Up: Aubrey Summers MD [Primary Care Provider, Family Practice] Disposition Disposition (needs filled in before D/C Order can be placed): Home, Self Care
[2025-05-09 07:45] VITALS: BP 105/42; PULSE 70; RESP 16; TEMP 36.6; O2SAT 96
--- NOTE | 2025-05-11 12:25 | CASEMGMT ---
Social Work Assessment Labor and Delivery Unit Patient Address: [address] [place] [address] [address] [id number] Phone number:[phone] Date of Referral: 05/08/25 Time of Referral:? 712 Referred By: Dr. Carranza Date of Intervention: ??05/10/25 Time of Intervention:? 1200 Reason for Referral:? mental health Sw completed chart review and acknowledges social work consult due to maternal mental health. Sw presented to bedside and introduced self to mother of baby, DANG- Lynsey and father of baby, CHRIS- Xander. Sw explained reason for sw involvement and completed psychosocial assessment. History obtained from: medical records, MOB and FOB Household composition: Currently residing in the home is MOB, FOB, and baby to also be included in home when ready for discharge. Parents deny any housing concerns stating that their home is safe and secure. Patient's parent/guardian status: DANG states that she and CHRIS have always been best friends, and when they got older their relationship started to grow into something more serious. They have been together for 10 years and for 3. baby is first baby for parents together. No concerns reported of domestic violence or intimate partner violence. ? ? Medical History: ?DANG is 29 year old female who is 1, para 0- now 1 following labor and delivery of . DANG received routine care during with [facility]. DANG presented to hospital and delivered baby via vaginal delivery at 39 weeks gestation. Baby was transferred to [facility] due to small for gestational age and hypoglycemia. Baby's name is, Gill Zaragoza, she was born weighing 5lbs 7oz and had apgars of 8 and 9 at one and five minutes of life, respectfully. DANG is breast feeding and states that baby will be followed by Dr. Feng for pediatric care and follow up. - Woodrow has made medical progress towards identified progress goals and is medically ready for discharge today. Educational Status:?Both parents graduated from high school, DANG obtained her Bachelors Degree and CHRIS has some college credits. No problems with reading, learning or comprehension. 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 Supplies:?All necessary baby supplies obtained, including: car seat, safe sleep space, clothes ,diapers and wipes. ? Childcare/Caregiver(s):? MOB and FOB will be the primary caregivers to baby, when both parent are working FOTiff will mostly be able to provide childcare due to his work schedule. Transportation:??Both parents have their drivers license and reliable means of transportation, no barriers at this time. Programs/Agencies Involved: Parents are not connected to any community resources that provide financial assistance??? Children Services/Legal Issues:??No history of children services involvement, no concerns warranting referral to be made? Behavioral Health Issues: ??Mental Health History: CHRIS denies mental health history. DANG reports that she has been diagnosed with anxiety. She is not prescribed medication to help her manage her symptoms, but is connected to [facility] in [place] where she receives routine virtual counseling support. Substance Use History:?Parents deny substance use prior to and during . ? Family History: Parents deny family history of addiction or significant mental health history. ? Drug Screens: ??No drug screens observed while completing chart review. Family/Social Stressors:? Parents deny any stressors at this time, they are thankful and eager to be able to be discharged today. Support Systems: MOB states that FOB, maternal grandparents are her biggest supports at this time. Depression/Shaken Baby/Safe Sleeping:? Sw educated MOB on signs and symptoms of baby blues and mood and anxiety symptoms to be mindful of going into this period. MOB states that she is aware of what to be on the lookout for. MOB states that she has talked to her counselor about these topics. MOB states that initially she was anxious when baby got transferred, but when she got into a good routine and was able to come over and feed baby and then get the rest that she needed her anxiety went away. MOB states that she is actually thankful and appreciative for the extra time that baby was able to receive from the NICU and the extra care that the nurses were able to give to her. Fariha informed MOB that due to baby being transferred and MOB having a mental health history she is more at risk for experiencing mental health symptoms during this period. Sw encouraged MOB to stay connected to her mental health supports, which MOB states that she already has future appointments scheduled. Sw expressed importance of safe sleep inside and outside of the bedroom. Sw educated MOB on always placing baby in bedside bassinet and not sleeping with baby in bed with her. Sw explained that baby's bassinet should be free of any blankets, pillows or stuffed animals. And baby should be sleeping in a onsie and a sleep sack/ swaddle sack for sleep. MOB expressed understanding. Sw discouraged sleeping with baby on a couch or in a reclining chair explaining that sleep accidents also happen in those areas as well. Sw educated MOB on shaken baby prevention. MOB expressed understanding. ASSESSMENT:? MOB and baby admitted following labor and delivery. Baby required transfer of care to [facility], but is medically ready for discharge. MOB with mental health history of anxiety, and is connected to mental health supports that she meets with regularly. MOB and FOB at bedside and active in completion of psychosocial assessment. MOB aware of how this difficult journey may impact her mental health, but states that so far she is doing well and is thankful for the additional nursing support that they received from the [facility]. MOB states that she is anxious to be able to go home, and thinks that once they are home she is going to feel even more at peace. MOB states that if she were to struggle with her mental health, she does have healthy and safe coping skills that she can use and has practiced in the past. FOB also states that he would be able to recognize if MOB were struggling and would know how to help her. MOB states that she is a talker and would definitely share with FOB if she were having a hard time. Sw encouraged MOB to talk about what she is struggling with also with her counselor. MOB agreed. DANG states that she has a lot of natural supports in place with family and a large friend group, and also has all the baby supplies that [place] needs. PLAN:? No other services requested or indicated. MOB and baby to be discharged when medically ready. Parents were provided literature regarding: signs and symptoms of baby blues and mood and anxiety disorders, Help Me Grow, shaken baby prevention, ABCs of safe sleep and a list of county resources that are available for them should any needs present themselves. Kamryn Tristan, CLOTH BOOKER, PIECE DYEING MACHINE TENDER
[2025-05-14 08:19] LABS: Pathology Specimen OB SEE PATHOLOGY REPORT
== END 2025-05-09 10:19 | disposition home or self-care (01) | DRG 806 ==
PROVIDERS: Obstetrics & Gynecology; Admitting Provider Advanced Practice Midwife; PCP Family Medicine; Referring Provider Advanced Practice Midwife; Visit Provider Advanced Practice Midwife
DX: O99.354 Diseases of the nervous system complicating childbirth (principal); Z37.0 Single live birth; O99.12 Other diseases of the blood and blood-forming organs and certain disorders involving the immune mechanism complicating childbirth; D69.6 Thrombocytopenia, unspecified; G40.909 Epilepsy, unspecified, not intractable, without status epilepticus; O99.344 Other mental disorders complicating childbirth; F41.9 Anxiety disorder, unspecified; O69.81X0 Labor and delivery complicated by cord around neck, without compression, not applicable or unspecified; O70.1 Second degree perineal laceration during delivery; O77.0 Labor and delivery complicated by meconium in amniotic fluid; Z3A.39 39 weeks gestation of pregnancy; Z79.899 Other long term (current) drug therapy
CPT/HCPCS: 59025; 59050; 82962; 85025; 86780; 86850; 86900; 86901; 88307; 99221; G0378; J2405